=== PATIENT | male | born 1975 | race Caucasian/White ===

== ENCOUNTER 2017-02-10 14:28 | Inpatient (IN) | payer MEDICAID ==
[~2017-02-10] VITALS: Ht 165.1 cm; Wt 76.1 kg
[~2017-02-10 14:28] MED LIST: ALBU0.084 IN; CARI-277 PO; FENT50DI11 TD; Ipratropium Bromide NEB; LEV500PM IV; PANTPAK IV; PERCOT GT; [UNRECOGNIZED DRUG - CODE] IV
[2017-02-10] MEDS ORDERED: SODIUM CHLORIDE 0.9% 1,000 ML IV ONE (15:28)
[2017-02-10] MEDS ORDERED: MEPERIDINE HCL (50 MG/ML) 1 ML VIAL IV ONE ×2 (15:30→18:30)
[2017-02-10] MEDS ORDERED: PROMETHAZINE HCL 25 MG/ML 1ML IV ONE (15:30)
[2017-02-10 16:30] LABS: Basophils # (auto) 0 uL; Basophils % (auto) 0.2 % (0.0-2.0); CONDITION Y; DEFINITIVE SEE PRINTOUT; Eosinophils # (auto) 0.1 uL; Eosinophils % (auto) 1.8 % (0.0-7.0); Hematocrit 35.4 % (41.0-53.0); Hemoglobin 11.8 g/dL (13.5-17.5); Lymphocytes # (auto) 0.9 uL; Lymphocytes % (auto) 16.1 % (10.0-50.0); Mean Corpuscular Hemoglobin 25.9 pg (28.0-32.0); Mean Corpuscular Hgb Conc. 33.2 g/dL (32.0-36.0); Mean Corpuscular Volume 78.1 fL (80.0-100.0); Monocytes # (auto) 0.3 uL; Monocytes % (auto) 5.8 % (0.0-12.0); Neutrophils # (auto) 4.1 uL; Neutrophils % (auto) 76.1 % (37.0-80.0); Platelet Count (auto) 131 10^3/uL (140-450); Red Cell Distribution Width 18.3 % (11.6-16.0); White Blood Cell 5.4 10^3/uL (4.4-10.8)
[2017-02-10 16:44] LABS: Albumin 3.7 g/dL (3.4-5.0); Anion Gap 9 (5-15); Aspartate Aminotransferase 20 U/L (15-37); BUN/Creatinine Ratio 86.7; Blood Urea Nitrogen 13 mg/dL (7-18); Calcium 8.7 mg/dL (8.5-10.1); Carbon Dioxide 26 mmol/L (21-32); Chloride 108 mmol/L (98-107); GFR African American 937 mL/min; GFR Non-African American 774 mL/min; Glucose 78 mg/dL (74-106); Magnesium 2.3 mg/dL (1.6-2.6); Potassium 4.2 mmol/L (3.5-5.1); Sodium 143 mmol/L (136-145)
[2017-02-10 16:46] LABS: Alkaline Phosphatase 143 U/L (45-117); Bilirubin, Total 0.5 mg/dL (0.2-1.0); Total Protein 8.2 g/dL (6.4-8.2)
[2017-02-10] MEDS ORDERED: LORazepam 0.5 MG TAB PO PRN (17:30)
[2017-02-10] MEDS ORDERED: TEMAZEPAM 15 MG CAP PO PRN (17:30)
[2017-02-10] MEDS ORDERED: MORPHINE SULFATE 4 MG/ML SYRG IV PRN (17:30)
[2017-02-10] MEDS ORDERED: LACTULOSE 20Gm/30ML SOLN PO PRN (17:30)
[2017-02-10] MEDS ORDERED: ACETAMINOPHEN 500 MG TAB PO PRN (17:30)
[2017-02-10] MEDS ORDERED: NITROGLYCERIN 0.4 MG SL TAB SL PRN (17:30)
[2017-02-10 18:37] VITALS: BP 113/75
[2017-02-10 18:59] LABS: Urine Bilirubin Negative (Negative); Urine Blood Negative /uL (Negative); Urine Color Yellow (Yellow); Urine Glucose Normal (Normal); Urine Ketone Negative (Negative); Urine Nitrite Negative (Negative); Urine RBC 1 /hpf (0 - 3); Urine Squamous Epithelial Cell FEW /hpf (<5); Urine Urobilinogen Normal (Negative)
[2017-02-10] MEDS: SODIUM CHLORIDE 0.9% 1,000 ML IV SCH (19:10)
[2017-02-10 20:29] VITALS: BP 123/83
[2017-02-10] MEDS: ONDANSETRON HCL 4 MG/2 ML VIAL IV PRN (21:28)
[2017-02-10 23:49] VITALS: BP 123/83
[2017-02-11] VITALS (9 sets, daily range): BP systolic 102–138; BP diastolic 55–88
[2017-02-11] MEDS: MORPHINE SULFATE 4 MG/ML SYRG IV PRN ×5 (00:53→15:13)
[2017-02-11] MEDS: SODIUM CHLORIDE 0.9% 1,000 ML IV SCH ×2 (09:40→21:17)
[2017-02-11] MEDS ORDERED: LEVOFLOXACIN 500MG 100 ML IV SCH ×2 (10:00)
[2017-02-11] MEDS: ONDANSETRON HCL 4 MG/2 ML VIAL IV PRN ×2 (10:24→21:03)
[2017-02-11] MEDS ORDERED: TPN PER PHARMACY 0 ML IV SCH (17:15)
[2017-02-11] MEDS ORDERED: VANCOMYCIN PER PHARMACY 0 MG IV SCH (17:30)
[2017-02-11 18:47] LABS: Albumin 3.5 g/dL (3.4-5.0); Anion Gap 11 (5-15); BUN/Creatinine Ratio 66.7; Blood Urea Nitrogen 10 mg/dL (7-18); Calcium 8.4 mg/dL (8.5-10.1); Carbon Dioxide 19 mmol/L (21-32); Chloride 114 mmol/L (98-107); GFR African American 937 mL/min; GFR Non-African American 774 mL/min; Glucose 75 mg/dL (74-106); Sodium 144 mmol/L (136-145)
[2017-02-11 18:49] LABS: Alkaline Phosphatase 138 U/L (45-117); Bilirubin, Total 0.9 mg/dL (0.2-1.0); Total Protein 7.9 g/dL (6.4-8.2)
[2017-02-11 18:51] LABS: Phosphorus 2.5 mg/dL (2.5-4.90)
[2017-02-11 19:20] LABS: Potassium 4.2 mmol/L (3.5-5.1)
[2017-02-11 19:36] LABS: Aspartate Aminotransferase 26 U/L (15-37)
[2017-02-11] MEDS: VANCOMYCIN 1GM/250ML D5W 250 ML IV SCH (20:53)
[2017-02-11] MEDS ORDERED: CLINIMIX PER PHARMACY IV NR ×7 (21:00)
[2017-02-11] MEDS: HYDROmorphone HCL 2 MG/ML VL IV PRN (21:03)
[2017-02-11] MEDS: InsuLIN REG 1unit/0.01ml Soln (100units/ml) SC SCH (21:16)
[2017-02-11] MEDS: ACCU-CHEK COMFORT CURVE STRIP VI SCH (21:18)
[2017-02-11] MEDS: PANTOPRAZOLE SODIUM 40 MG/10 ML VIAL IV SCH (21:55)
[2017-02-12] VITALS (14 sets, daily range): BP systolic 120–153; BP diastolic 76–93
[2017-02-12] MEDS ORDERED: DEXTROSE (50%) 50ML SYRG IV SCH
[2017-02-12] MEDS: HYDROmorphone HCL 2 MG/ML VL IV PRN ×6 (01:20→21:54)
[2017-02-12 05:46] LABS: Albumin 3.4 g/dL (3.4-5.0); Alkaline Phosphatase 126 U/L (45-117); Anion Gap 14 (5-15); Bilirubin, Total 0.9 mg/dL (0.2-1.0); Blood Urea Nitrogen 9 mg/dL (7-18); Calcium 8.5 mg/dL (8.5-10.1); Carbon Dioxide 16 mmol/L (21-32); Chloride 110 mmol/L (98-107); Glucose 63 mg/dL (74-106); Magnesium 2.2 mg/dL (1.6-2.6); Phosphorus 2.6 mg/dL (2.5-4.90); Sodium 140 mmol/L (136-145); Total Protein 7.1 g/dL (6.4-8.2); Triglycerides 75 mg/dL (< 150)
[2017-02-12 05:49] LABS: Aspartate Aminotransferase 35 U/L (15-37); Potassium 4.1 mmol/L (3.5-5.1)
[2017-02-12] MEDS: InsuLIN REG 1unit/0.01ml Soln (100units/ml) SC SCH ×3 (06:00→18:00)
[2017-02-12] MEDS: ACCU-CHEK COMFORT CURVE STRIP VI SCH ×3 (06:01→18:01)
[2017-02-12 06:03] LABS: GFR African American 937 mL/min; GFR Non-African American 774 mL/min
[2017-02-12 08:57] LABS: Basophils # (auto) 0 uL; Basophils % (auto) 0.5 % (0.0-2.0); CONDITION Y; DEFINITIVE SEE PRINTOUT; Eosinophils # (auto) 0.1 uL; Eosinophils % (auto) 1.9 % (0.0-7.0); Hematocrit 33.7 % (41.0-53.0); Lymphocytes # (auto) 1.5 uL; Lymphocytes % (auto) 25.5 % (10.0-50.0); Mean Corpuscular Hemoglobin 25.7 pg (28.0-32.0); Mean Corpuscular Hgb Conc. 32.6 g/dL (32.0-36.0); Mean Corpuscular Volume 78.8 fL (80.0-100.0); Mean Platelet Volume 10.6 fL (7.4-10.4); Monocytes # (auto) 0.5 uL; Monocytes % (auto) 9.3 % (0.0-12.0); Neutrophils # (auto) 3.6 uL; Neutrophils % (auto) 62.8 % (37.0-80.0); Platelet Count (auto) 132 10^3/uL (140-450); Red Cell Distribution Width 18.8 % (11.6-16.0); White Blood Cell 5.8 10^3/uL (4.4-10.8)
[2017-02-12] MEDS: SODIUM CHLORIDE 0.9% 1,000 ML IV SCH ×2 (09:21→16:31)
[2017-02-12] MEDS: PANTOPRAZOLE SODIUM 40 MG/10 ML VIAL IV SCH ×2 (10:19→21:30)
[2017-02-12] MEDS: VANCOMYCIN 1GM/250ML D5W 250 ML IV SCH ×2 (10:19→21:00)
[2017-02-12] MEDS ORDERED: diphenhdrAMINE HCL 25 MG CAP PO PRN (16:15)
[2017-02-12] MEDS: LEVOFLOXACIN 500MG 100 ML IV SCH (16:30)
[2017-02-12] MEDS: diphenhdrAMINE HCL 12.5 MG/5 ML UD GT PRN (18:45)
[2017-02-12] MEDS ORDERED: TPN PER PHARMACY IV NR ×9 (20:00)
[2017-02-13] VITALS (14 sets, daily range): BP systolic 122–143; BP diastolic 62–96
[2017-02-13] MEDS: InsuLIN REG 1unit/0.01ml Soln (100units/ml) SC SCH ×4 (00:58→18:00)
[2017-02-13] MEDS: SODIUM CHLORIDE 0.9% 1,000 ML IV SCH ×3 (01:36→21:57)
[2017-02-13] MEDS: HYDROmorphone HCL 2 MG/ML VL IV PRN ×5 (01:37→21:10)
[2017-02-13] MEDS: ACCU-CHEK COMFORT CURVE STRIP VI SCH ×4 (06:38→18:15)
[2017-02-13] MEDS: VANCOMYCIN 1GM/250ML D5W 250 ML IV SCH ×2 (08:39→20:46)
[2017-02-13] MEDS: PANTOPRAZOLE SODIUM 40 MG/10 ML VIAL IV SCH ×2 (10:32→21:57)
[2017-02-13] MEDS: LEVOFLOXACIN 500MG 100 ML IV SCH (10:32)
[2017-02-13 14:27] LABS: Basophils # (auto) 0 uL; Basophils % (auto) 0.4 % (0.0-2.0); CONDITION Y; DEFINITIVE SEE PRINTOUT; Eosinophils # (auto) 0.2 uL; Eosinophils % (auto) 3.2 % (0.0-7.0); Hematocrit 35.2 % (41.0-53.0); Hemoglobin 11.4 g/dL (13.5-17.5); Lymphocytes # (auto) 0.8 uL; Lymphocytes % (auto) 15.8 % (10.0-50.0); Mean Corpuscular Hemoglobin 25.8 pg (28.0-32.0); Mean Corpuscular Hgb Conc. 32.5 g/dL (32.0-36.0); Mean Corpuscular Volume 79.6 fL (80.0-100.0); Mean Platelet Volume 9.6 fL (7.4-10.4); Monocytes # (auto) 0.5 uL; Monocytes % (auto) 10.4 % (0.0-12.0); Neutrophils # (auto) 3.4 uL; Neutrophils % (auto) 70.2 % (37.0-80.0); Platelet Count (auto) 119 10^3/uL (140-450); Red Cell Distribution Width 18.5 % (11.6-16.0); White Blood Cell 4.9 10^3/uL (4.4-10.8)
[2017-02-13 15:02] LABS: Albumin 3.3 g/dL (3.4-5.0); Anion Gap 11 (5-15); Aspartate Aminotransferase 20 U/L (15-37); Blood Urea Nitrogen 9 mg/dL (7-18); Calcium 8.2 mg/dL (8.5-10.1); Carbon Dioxide 20 mmol/L (21-32); Chloride 112 mmol/L (98-107); GFR African American 937 mL/min; GFR Non-African American 774 mL/min; Glucose 115 mg/dL (74-106); Magnesium 1.7 mg/dL (1.6-2.6); Potassium 3.5 mmol/L (3.5-5.1); Sodium 143 mmol/L (136-145)
[2017-02-13 15:04] LABS: Alkaline Phosphatase 124 U/L (45-117); Bilirubin, Total 0.6 mg/dL (0.2-1.0); Total Protein 7.6 g/dL (6.4-8.2)
[2017-02-13 15:08] LABS: Phosphorus 2.2 mg/dL (2.5-4.90)
[2017-02-13] MEDS ORDERED: POTASSIUM PHOSP 22MEQ(15MMOLE) in NS 100 ML IV ONE (16:00)
[2017-02-13] MEDS: diphenhdrAMINE HCL 12.5 MG/5 ML UD GT PRN (17:19)
[2017-02-13] MEDS ORDERED: CLINIMIX PER PHARMACY IV NR ×7 (20:00)
[2017-02-13] MEDS ORDERED: HYDROmorphone HCL 2 MG/ML VL IV PRN (21:00)
[2017-02-14] MEDS: InsuLIN REG 1unit/0.01ml Soln (100units/ml) SC SCH ×4 (00:30→18:00)
[2017-02-14] MEDS: ACCU-CHEK COMFORT CURVE STRIP VI SCH ×4 (00:42→18:12)
[2017-02-14] MEDS: HYDROmorphone HCL 2 MG/ML VL IV PRN ×6 (00:43→23:27)
[2017-02-14 05:00] VITALS: BP 148/92
[2017-02-14] MEDS: SODIUM CHLORIDE 0.9% 1,000 ML IV SCH ×2 (07:45→18:14)
[2017-02-14 08:30] VITALS: BP 129/83
[2017-02-14] MEDS: PANTOPRAZOLE SODIUM 40 MG/10 ML VIAL IV SCH ×2 (10:18→22:29)
[2017-02-14] MEDS: VANCOMYCIN 1GM/250ML D5W 250 ML IV SCH ×2 (10:18→22:43)
[2017-02-14] MEDS: fentaNYL 50MCG/HR 50 MCG/HR PAT TD SCH (10:19)
[2017-02-14] MEDS: HYDROcodone-ACET 5/325MG TAB PO PRN ×2 (11:37→15:09)
[2017-02-14 13:00] VITALS: BP 111/77
[2017-02-14 13:46] LABS: Basophils # (auto) 0 uL; Basophils % (auto) 0.3 % (0.0-2.0); CONDITION Y; DEFINITIVE SEE PRINTOUT; Eosinophils # (auto) 0.2 uL; Eosinophils % (auto) 3.5 % (0.0-7.0); Hematocrit 38.9 % (41.0-53.0); Hemoglobin 12.6 g/dL (13.5-17.5); Lymphocytes # (auto) 1.3 uL; Lymphocytes % (auto) 20.8 % (10.0-50.0); Mean Corpuscular Hemoglobin 25.7 pg (28.0-32.0); Mean Corpuscular Hgb Conc. 32.3 g/dL (32.0-36.0); Mean Corpuscular Volume 79.6 fL (80.0-100.0); Mean Platelet Volume 9.9 fL (7.4-10.4); Monocytes # (auto) 0.7 uL; Monocytes % (auto) 11.9 % (0.0-12.0); Neutrophils # (auto) 3.9 uL; Neutrophils % (auto) 63.5 % (37.0-80.0); Platelet Count (auto) 151 10^3/uL (140-450); Red Cell Distribution Width 18.7 % (11.6-16.0); White Blood Cell 6.2 10^3/uL (4.4-10.8)
[2017-02-14 14:09] LABS: Albumin 3.7 g/dL (3.4-5.0); Alkaline Phosphatase 125 U/L (45-117); Anion Gap 8 (5-15); Bilirubin, Total 0.8 mg/dL (0.2-1.0); Blood Urea Nitrogen 10 mg/dL (7-18); Carbon Dioxide 24 mmol/L (21-32); Chloride 107 mmol/L (98-107); Glucose 86 mg/dL (74-106); Magnesium 2.3 mg/dL (1.6-2.6); Phosphorus 3.1 mg/dL (2.5-4.90); Sodium 139 mmol/L (136-145); Total Protein 7.7 g/dL (6.4-8.2)
[2017-02-14 14:14] LABS: Potassium 4.4 mmol/L (3.5-5.1)
[2017-02-14 14:15] LABS: Aspartate Aminotransferase 27 U/L (15-37); BUN/Creatinine Ratio 66.7; GFR African American 937 mL/min; GFR Non-African American 774 mL/min
[2017-02-14 17:47] VITALS: BP 116/78
[2017-02-14] MEDS ORDERED: CLINIMIX PER PHARMACY IV NR ×7 (20:00)
[2017-02-14] MEDS ORDERED: LORazepam 0.5 MG TAB GT PRN (20:15)
[2017-02-14] MEDS ORDERED: HYDROcodone-ACET 5/325MG TAB GT PRN (20:15)
[2017-02-14] MEDS: MUPIROCIN 2% OINT 22GM EACHNOSTRI SCH (22:28)
[2017-02-14] MEDS: MEROPENEM 1GM IVPB 100 ML IV SCH (22:28)
[2017-02-15] VITALS (7 sets, daily range): BP systolic 121–135; BP diastolic 69–76
[2017-02-15] MEDS: HYDROmorphone HCL 2 MG/ML VL IV PRN ×6 (02:50→20:30)
[2017-02-15 05:21] LABS: Basophils # (auto) 0 uL; Basophils % (auto) 0.6 % (0.0-2.0); CONDITION Y; DEFINITIVE SEE PRINTOUT; Eosinophils # (auto) 0.3 uL; Eosinophils % (auto) 5.4 % (0.0-7.0); Hematocrit 35.5 % (41.0-53.0); Hemoglobin 11.6 g/dL (13.5-17.5); Lymphocytes # (auto) 1.7 uL; Lymphocytes % (auto) 31.9 % (10.0-50.0); Mean Corpuscular Hemoglobin 25.9 pg (28.0-32.0); Mean Corpuscular Hgb Conc. 32.7 g/dL (32.0-36.0); Mean Corpuscular Volume 79.2 fL (80.0-100.0); Mean Platelet Volume 9.6 fL (7.4-10.4); Monocytes # (auto) 0.6 uL; Monocytes % (auto) 10.5 % (0.0-12.0); Neutrophils # (auto) 2.8 uL; Neutrophils % (auto) 51.6 % (37.0-80.0); Platelet Count (auto) 155 10^3/uL (140-450); White Blood Cell 5.5 10^3/uL (4.4-10.8)
[2017-02-15 05:41] LABS: Albumin 3.4 g/dL (3.4-5.0); Alkaline Phosphatase 120 U/L (45-117); Anion Gap 7 (5-15); Aspartate Aminotransferase 17 U/L (15-37); Bilirubin, Total 0.8 mg/dL (0.2-1.0); Blood Urea Nitrogen 9 mg/dL (7-18); Calcium 8.6 mg/dL (8.5-10.1); Carbon Dioxide 23 mmol/L (21-32); Chloride 109 mmol/L (98-107); Glucose 85 mg/dL (74-106); Magnesium 2.3 mg/dL (1.6-2.6); Phosphorus 2.7 mg/dL (2.5-4.90); Potassium 4.1 mmol/L (3.5-5.1); Sodium 139 mmol/L (136-145); Total Protein 7.2 g/dL (6.4-8.2)
[2017-02-15] MEDS: InsuLIN REG 1unit/0.01ml Soln (100units/ml) SC SCH ×4 (06:00→18:00)
[2017-02-15] MEDS: ACCU-CHEK COMFORT CURVE STRIP VI SCH ×4 (06:02→18:17)
[2017-02-15] MEDS: MEROPENEM 1GM IVPB 100 ML IV SCH ×3 (06:04→21:38)
[2017-02-15] MEDS: SODIUM CHLORIDE 0.9% 1,000 ML IV SCH ×3 (06:04→20:26)
[2017-02-15 06:17] LABS: GFR African American 937 mL/min; GFR Non-African American 774 mL/min
[2017-02-15] MEDS: MUPIROCIN 2% OINT 22GM EACHNOSTRI SCH ×2 (09:10→21:38)
[2017-02-15] MEDS: VANCOMYCIN 1GM/250ML D5W 250 ML IV SCH ×2 (09:10→21:37)
[2017-02-15] MEDS: PANTOPRAZOLE SODIUM 40 MG/10 ML VIAL IV SCH ×2 (09:10→21:38)
[2017-02-15] MEDS: ONDANSETRON HCL 4 MG/2 ML VIAL IV PRN (10:28)
[2017-02-15] MEDS ORDERED: TPN PER PHARMACY IV NR ×9 (20:00)
[2017-02-16] MEDS: HYDROmorphone HCL 2 MG/ML VL IV PRN ×7 (00:31→23:32)
[2017-02-16 05:00] VITALS: BP 162/95
[2017-02-16] MEDS: MEROPENEM 1GM IVPB 100 ML IV SCH ×3 (05:19→23:31)
[2017-02-16] MEDS: ACCU-CHEK COMFORT CURVE STRIP VI SCH ×5 (05:19→23:39)
[2017-02-16] MEDS: InsuLIN REG 1unit/0.01ml Soln (100units/ml) SC SCH ×5 (06:00→23:39)
[2017-02-16 06:10] LABS: Basophils # (auto) 0 uL; Basophils % (auto) 0.5 % (0.0-2.0); CONDITION Y; DEFINITIVE SEE PRINTOUT; Eosinophils # (auto) 0.3 uL; Eosinophils % (auto) 6.1 % (0.0-7.0); Hematocrit 38.9 % (41.0-53.0); Hemoglobin 13.1 g/dL (13.5-17.5); Lymphocytes # (auto) 1.3 uL; Lymphocytes % (auto) 30.3 % (10.0-50.0); Mean Corpuscular Hemoglobin 26.4 pg (28.0-32.0); Mean Corpuscular Hgb Conc. 33.6 g/dL (32.0-36.0); Mean Corpuscular Volume 78.5 fL (80.0-100.0); Mean Platelet Volume 12.3 fL (7.4-10.4); Monocytes # (auto) 0.4 uL; Monocytes % (auto) 10.1 % (0.0-12.0); Neutrophils # (auto) 2.2 uL; Platelet Count (auto) 134 10^3/uL (140-450); Red Cell Distribution Width 19.8 % (11.6-16.0); SUSPECT SEE PRINTOUT; White Blood Cell 4.2 10^3/uL (4.4-10.8)
[2017-02-16 06:20] VITALS: BP 162/95
[2017-02-16 06:28] LABS: Albumin 3.4 g/dL (3.4-5.0); Alkaline Phosphatase 120 U/L (45-117); Anion Gap 11 (5-15); Aspartate Aminotransferase 36 U/L (15-37); BUN/Creatinine Ratio 66.7; Bilirubin, Total 0.7 mg/dL (0.2-1.0); Blood Urea Nitrogen 10 mg/dL (7-18); Calcium 8.7 mg/dL (8.5-10.1); Carbon Dioxide 23 mmol/L (21-32); Chloride 105 mmol/L (98-107); GFR African American 937 mL/min; GFR Non-African American 774 mL/min; Glucose 106 mg/dL (74-106); Magnesium 2.1 mg/dL (1.6-2.6); Potassium 4.4 mmol/L (3.5-5.1); Sodium 139 mmol/L (136-145); Total Protein 7.6 g/dL (6.4-8.2)
[2017-02-16] MEDS: PANTOPRAZOLE SODIUM 40 MG/10 ML VIAL IV SCH ×2 (08:50→22:02)
[2017-02-16] MEDS: MUPIROCIN 2% OINT 22GM EACHNOSTRI SCH ×2 (08:51→22:03)
[2017-02-16 09:00] VITALS: BP 119/67
[2017-02-16] MEDS: VANCOMYCIN 1GM/250ML D5W 250 ML IV SCH ×2 (09:02→22:03)
[2017-02-16] MEDS: SODIUM CHLORIDE 0.9% 1,000 ML IV SCH (10:18)
[2017-02-16 16:23] VITALS: BP 121/63
[2017-02-16 20:00] VITALS: BP 115/73
[2017-02-16] MEDS ORDERED: TPN PER PHARMACY IV NR ×9 (20:00)
[2017-02-16] MEDS: ONDANSETRON HCL 4 MG/2 ML VIAL IV PRN (20:31)
[2017-02-16 22:00] VITALS: BP 115/77
[2017-02-17] VITALS (9 sets, daily range): BP systolic 101–124; BP diastolic 65–84
[2017-02-17] MEDS: SODIUM CHLORIDE 0.9% 1,000 ML IV SCH ×2 (00:36→20:47)
[2017-02-17] MEDS: HYDROmorphone HCL 2 MG/ML VL IV PRN ×7 (02:24→21:17)
[2017-02-17] MEDS: MEROPENEM 1GM IVPB 100 ML IV SCH ×3 (05:32→23:55)
[2017-02-17] MEDS: InsuLIN REG 1unit/0.01ml Soln (100units/ml) SC SCH ×4 (05:56→23:41)
[2017-02-17] MEDS: ACCU-CHEK COMFORT CURVE STRIP VI SCH ×4 (05:56→23:41)
[2017-02-17 08:11] LABS: Albumin 3.5 g/dL (3.4-5.0); Alkaline Phosphatase 117 U/L (45-117); Anion Gap 11 (5-15); Aspartate Aminotransferase 21 U/L (15-37); Bilirubin, Total 0.9 mg/dL (0.2-1.0); Blood Urea Nitrogen 12 mg/dL (7-18); Calcium 9.1 mg/dL (8.5-10.1); Carbon Dioxide 23 mmol/L (21-32); Chloride 105 mmol/L (98-107); GFR African American 937 mL/min; GFR Non-African American 774 mL/min; Glucose 77 mg/dL (74-106); Magnesium 2.2 mg/dL (1.6-2.6); Phosphorus 2.4 mg/dL (2.5-4.90); Potassium 4.2 mmol/L (3.5-5.1); Sodium 139 mmol/L (136-145); Total Protein 7.7 g/dL (6.4-8.2)
[2017-02-17] MEDS ORDERED: SODIUM PHOSP 20MEQ(15MMOL) IN NS 100 ML IV ONE (08:45)
[2017-02-17] MEDS: VANCOMYCIN 1GM/250ML D5W 250 ML IV SCH ×2 (10:26→22:09)
[2017-02-17] MEDS: PANTOPRAZOLE SODIUM 40 MG/10 ML VIAL IV SCH ×2 (10:27→21:16)
[2017-02-17] MEDS: MUPIROCIN 2% OINT 22GM EACHNOSTRI SCH ×2 (10:28→22:09)
[2017-02-17] MEDS: fentaNYL 50MCG/HR 50 MCG/HR PAT TD SCH (10:38)
[2017-02-17 13:28] LABS: Basophils # (auto) 0 uL; Basophils % (auto) 0.4 % (0.0-2.0); CONDITION Y; DEFINITIVE SEE PRINTOUT; Eosinophils # (auto) 0.3 uL; Eosinophils % (auto) 5.3 % (0.0-7.0); Hematocrit 36.5 % (41.0-53.0); Hemoglobin 12.1 g/dL (13.5-17.5); Lymphocytes # (auto) 1.5 uL; Lymphocytes % (auto) 29.4 % (10.0-50.0); Mean Corpuscular Hemoglobin 26.4 pg (28.0-32.0); Mean Corpuscular Hgb Conc. 33.2 g/dL (32.0-36.0); Mean Corpuscular Volume 79.4 fL (80.0-100.0); Mean Platelet Volume 9.6 fL (7.4-10.4); Monocytes # (auto) 0.7 uL; Monocytes % (auto) 13.2 % (0.0-12.0); Neutrophils # (auto) 2.7 uL; Neutrophils % (auto) 51.7 % (37.0-80.0); Platelet Count (auto) 169 10^3/uL (140-450); Red Cell Distribution Width 19.4 % (11.6-16.0); White Blood Cell 5.3 10^3/uL (4.4-10.8)
[2017-02-17 15:14] LABS: Anisocytosis Slight
[2017-02-17 15:16] LABS: Platelet Estimate Adequate
[2017-02-17 15:17] LABS: Hypochromia Slight
[2017-02-17] MEDS ORDERED: TPN PER PHARMACY IV NR ×9 (20:00)
[2017-02-18] MEDS: HYDROmorphone HCL 2 MG/ML VL IV PRN ×8 (00:30→22:24)
[2017-02-18 04:45] VITALS: BP 116/69
[2017-02-18] MEDS: SODIUM CHLORIDE 0.9% 1,000 ML IV SCH (05:12)
[2017-02-18] MEDS: InsuLIN REG 1unit/0.01ml Soln (100units/ml) SC SCH ×3 (06:00→17:49)
[2017-02-18] MEDS: ACCU-CHEK COMFORT CURVE STRIP VI SCH ×3 (06:41→17:49)
[2017-02-18] MEDS: MEROPENEM 1GM IVPB 100 ML IV SCH ×2 (07:02→13:59)
[2017-02-18] MEDS: PANTOPRAZOLE SODIUM 40 MG/10 ML VIAL IV SCH ×2 (09:51→22:24)
[2017-02-18] MEDS: VANCOMYCIN 1GM/250ML D5W 250 ML IV SCH (09:53)
[2017-02-18 10:33] LABS: Albumin 3.3 g/dL (3.4-5.0); Alkaline Phosphatase 108 U/L (45-117); Anion Gap 10 (5-15); Aspartate Aminotransferase 14 U/L (15-37); Bilirubin, Total 0.8 mg/dL (0.2-1.0); Blood Urea Nitrogen 12 mg/dL (7-18); Calcium 8.8 mg/dL (8.5-10.1); Carbon Dioxide 22 mmol/L (21-32); Chloride 107 mmol/L (98-107); Glucose 80 mg/dL (74-106); Magnesium 2.2 mg/dL (1.6-2.6); Phosphorus 3.2 mg/dL (2.5-4.90); Sodium 139 mmol/L (136-145); Total Protein 7.2 g/dL (6.4-8.2)
[2017-02-18 10:37] LABS: Basophils # (auto) 0 uL; Basophils % (auto) 0.8 % (0.0-2.0); CONDITION Y; DEFINITIVE SEE PRINTOUT; Eosinophils # (auto) 0.3 uL; Eosinophils % (auto) 5.4 % (0.0-7.0); Hematocrit 34.6 % (41.0-53.0); Hemoglobin 11.5 g/dL (13.5-17.5); Lymphocytes # (auto) 1.6 uL; Lymphocytes % (auto) 29.9 % (10.0-50.0); Mean Corpuscular Hemoglobin 26.1 pg (28.0-32.0); Mean Corpuscular Hgb Conc. 33.3 g/dL (32.0-36.0); Mean Corpuscular Volume 78.5 fL (80.0-100.0); Mean Platelet Volume 10.6 fL (7.4-10.4); Monocytes # (auto) 0.6 uL; Monocytes % (auto) 11.3 % (0.0-12.0); Neutrophils # (auto) 2.9 uL; Neutrophils % (auto) 52.6 % (37.0-80.0); Platelet Count (auto) 170 10^3/uL (140-450); Red Cell Distribution Width 19.2 % (11.6-16.0); White Blood Cell 5.5 10^3/uL (4.4-10.8)
[2017-02-18 10:50] LABS: GFR African American 937 mL/min; GFR Non-African American 774 mL/min
[2017-02-18] MEDS: MUPIROCIN 2% OINT 22GM EACHNOSTRI SCH (11:48)
[2017-02-18] MEDS ORDERED: ERTAPENEM SOD INJ 1 GM in SODIUM CHL 0.9% 50 ML IV SCH (16:45)
[2017-02-18] MEDS ORDERED: ERTAPENEM SOD INJ 1 GM in SODIUM CHL 0.9% 50 ML IV ONE (16:45)
[2017-02-18] MEDS ORDERED: AMOXICILLIN/CLAVUL 875 MG TAB PO ONE (16:45)
[2017-02-18 17:00] VITALS: BP 103/54
[2017-02-18] MEDS ORDERED: TPN PER PHARMACY IV NR ×9 (20:00)
[2017-02-18 22:00] VITALS: BP 110/65
== END 2017-02-18 23:20 | disposition home or self-care (01) | DRG 130 ==
LOC: ER 14:28 → EDBD 14:28 → TELE 14:29 → DOU IN ICU 02-11 05:03 → TELE-EAST 02-13 18:56 → EAST 02-18 04:50 → TELE-EAST 02-18 05:16
PROVIDERS: ADMIT Internal Medicine; ATTEND Family Medicine
PROC: 5A1955Z Respiratory Ventilation, Greater than 96 Consecutive Hours (ICD-10-PCS; principal; 2017-02-10)
PROC: 0BH17EZ Insertion of Endotracheal Airway into Trachea, Via Natural or Artificial Opening (ICD-10-PCS; 2017-02-10)
DX: J44.0 Chronic obstructive pulmonary disease with (acute) lower respiratory infection (principal); J95.851 Ventilator associated pneumonia; N17.9 Acute kidney failure, unspecified; J96.20 Acute and chronic respiratory failure, unspecified whether with hypoxia or hypercapnia; D69.6 Thrombocytopenia, unspecified; E87.2 Acidosis; R65.10 Systemic inflammatory response syndrome (SIRS) of non-infectious origin without acute organ dysfunction; G71.0 Muscular dystrophy; F11.20 Opioid dependence, uncomplicated; Z99.11 Dependence on respirator [ventilator] status; Z93.0 Tracheostomy status; D63.8 Anemia in other chronic diseases classified elsewhere; G89.4 Chronic pain syndrome; J44.9 Chronic obstructive pulmonary disease, unspecified; K21.9 Gastro-esophageal reflux disease without esophagitis; F32.9 Major depressive disorder, single episode, unspecified; Y84.8 Other medical procedures as the cause of abnormal reaction of the patient, or of later complication, without mention of misadventure at the time of the procedure; Z74.01 Bed confinement status; Z88.2 Allergy status to sulfonamides; Z93.1 Gastrostomy status; Z93.3 Colostomy status; Z88.8 Allergy status to other drugs, medicaments and biological substances
CPT/HCPCS: 36415; 71010; 80053; 80202; 81001; 82040; 82962; 83605; 83735; 84100; 84443; 84478; 85025; 87040; 87070; 87077; 87081; 87186; 87205; 93005; 93306; 94002; 94003; 96361; 96374; 96375; C9113; J1335; J1642; J1956; J2185; J2405

== ENCOUNTER 2017-05-23 20:39 | Inpatient (IN) | payer MEDICAID ==
[~2017-05-23] VITALS: Ht 160 cm; Wt 83.9 kg
[~2017-05-23 20:39] MED LIST changes: -CARI-277 PO; -LEV500PM IV; -[UNRECOGNIZED DRUG - CODE] IV
[2017-05-23 21:25] LABS: Basophils # (auto) 0 uL; Eosinophils # (auto) 0.1 uL; Hemoglobin 10.6 g/dL (13.5-17.5); Lymphocytes # (auto) 1.1 uL; Mean Platelet Volume 8.2 fL (6.9-10.8); Monocytes # (auto) 0.4 uL; Nucleated Red Blood Cells % 0.2 %; Red Cell Distribution Width 17.9 % (11.8-14.3)
[2017-05-23 21:27] LABS: Basophils % (auto) 0.5 % (0.0-2.0); Eosinophils % (auto) 2.3 % (0.0-7.0); Hematocrit 32.8 % (41.0-53.0); Lymphocytes % (auto) 21.8 % (10.0-50.0); Mean Corpuscular Hemoglobin 25.5 pg (28.0-32.0); Mean Corpuscular Hgb Conc. 32.2 g/dL (32.0-36.0); Neutrophils # (auto) 3.3 uL; Neutrophils % (auto) 67.4 % (37.0-80.0); Platelet Count (auto) 162 10^3/uL (140-450); White Blood Cell 4.9 10^3/uL (4.4-10.8)
[2017-05-23 21:44] LABS: Albumin 3.4 g/dL (3.4-5.0); Anion Gap 10 (5-15); Aspartate Aminotransferase 11 U/L (15-37); Blood Urea Nitrogen 9 mg/dL (7-18); Calcium 8.6 mg/dL (8.5-10.1); Carbon Dioxide 23 mmol/L (21-32); Chloride 112 mmol/L (98-107); Glucose 80 mg/dL (74-106); Sodium 145 mmol/L (136-145)
[2017-05-23 21:46] LABS: Alkaline Phosphatase 105 U/L (45-117); Bilirubin, Total 0.5 mg/dL (0.2-1.0); Total Protein 7.9 g/dL (6.4-8.2)
[2017-05-23 22:00] LABS: GFR African American 937 mL/min; GFR Non-African American 774 mL/min
[2017-05-23 22:25] LABS: Urine Bilirubin Negative (Negative); Urine Blood 1+ /uL (Negative); Urine Color Yellow (Yellow); Urine Glucose Normal (Normal); Urine Ketone Negative (Negative); Urine Mucus FEW (None Seen); Urine Nitrite Negative (Negative); Urine RBC 14 /hpf (0 - 3); Urine Urobilinogen Normal (Negative)
[2017-05-23] MEDS ORDERED: SODIUM CHLORIDE 0.9% 1,000 ML IV ONE (22:30)
[2017-05-23] MEDS ORDERED: ONDANSETRON HCL 4 MG/2 ML VIAL IV ONE (22:45)
[2017-05-23] MEDS ORDERED: HYDROmorphone HCL 2 MG/ML VL IV ONE (22:45)
[2017-05-23] MEDS ORDERED: cefTRIAXone 1GM/50ML D5W 50 ML IV ONE (23:15)
[2017-05-23] MEDS ORDERED: VANCOMYCIN 1GM/250ML 250 ML IV ONE (23:15)
[2017-05-24] VITALS (13 sets, daily range): BP systolic 120–137; BP diastolic 73–95
[2017-05-24] MEDS ORDERED: ONDANSETRON HCL 4 MG/2 ML VIAL IV PRN (00:30)
[2017-05-24] MEDS ORDERED: ACETAMINOPHEN 500 MG TAB PO PRN (00:30)
[2017-05-24] MEDS ORDERED: VANCOMYCIN PER PHARMACY 0 MG IV SCH (00:30)
[2017-05-24] MEDS ORDERED: MORPHINE SULF INJ 2 MG/ML SYRINGE 1ML IV PRN (00:30)
[2017-05-24] MEDS ORDERED: NITROGLYCERIN 0.4 MG SL TAB SL PRN (00:30)
[2017-05-24] MEDS ORDERED: HYDROcodone-ACET 5/325MG TAB PO PRN (00:30)
[2017-05-24] MEDS: MORPHINE SULF INJ 2 MG/ML SYRINGE 1ML IV PRN ×4 (01:19→12:23)
[2017-05-24] MEDS ORDERED: CARISOPRODOL 350 MG TAB PO ONE (03:15)
[2017-05-24] MEDS: ALBUTEROL SULF 2.5 MG/0.5ML(0.5%) NEB SOLN NEB SCH ×3 (06:10→18:29)
[2017-05-24] MEDS: IPRATROPIUM BROM 0.5 MG/2.5ML INH SOL NEB SCH ×3 (06:10→18:29)
[2017-05-24] MEDS: PANTOPRAZOLE 40 MG/10 ML VIAL IV SCH (10:00)
[2017-05-24] MEDS: VANCOMYCIN 1GM/250ML 250 ML IV SCH ×2 (10:44→21:46)
[2017-05-24] MEDS ORDERED: IOHEXOL 350 MG/ML 100ML IJ ONE ×2 (12:13→16:27)
[2017-05-24] MEDS ORDERED: FENT50DI2 (12:18)
[2017-05-24] MEDS ORDERED: HYDROmorphone HCL 2 MG/ML VL IV ONE (12:45)
[2017-05-24] MEDS: CARISOPRODOL 350 MG TAB PEG SCH ×3 (12:45→23:45)
[2017-05-24] MEDS ORDERED: TPN PER PHARMACY 0 ML IV SCH (13:15)
[2017-05-24 14:48] LABS: Albumin 3.5 g/dL (3.4-5.0); Alkaline Phosphatase 117 U/L (45-117); Anion Gap 10 (5-15); Aspartate Aminotransferase 20 U/L (15-37); Bilirubin, Total 0.8 mg/dL (0.2-1.0); Blood Urea Nitrogen 8 mg/dL (7-18); Calcium 8.6 mg/dL (8.5-10.1); Carbon Dioxide 18 mmol/L (21-32); Chloride 112 mmol/L (98-107); Glucose 73 mg/dL (74-106); Magnesium 2.2 mg/dL (1.6-2.6); Phosphorus 2.5 mg/dL (2.5-4.90); Sodium 140 mmol/L (136-145); Total Protein 7.8 g/dL (6.4-8.2); Triglycerides 96 mg/dL (< 150)
[2017-05-24 15:40] LABS: GFR African American 1495 mL/min; GFR Non-African American 1236 mL/min
[2017-05-24] MEDS: OXYCODONE W/ ACETAMINOPHEN 5/325MG TABLET GT PRN (15:58)
[2017-05-24] MEDS ORDERED: LEVOFLOXACIN 500MG 100 ML IV SCH (16:15)
[2017-05-24] MEDS ORDERED: LEVO500T21 GT (16:15)
[2017-05-24] MEDS ORDERED: LEVOFLOXACIN 500MG 100 ML IV ONE ×2 (17:26→18:00)
[2017-05-24] MEDS ORDERED: PIPERACILLIN-TAZOB 3.375GM/D5W100ML IV SCH (18:00)
[2017-05-24] MEDS ORDERED: TPN PER PHARMACY IV NR ×5 (20:00)
[2017-05-24] MEDS: HYDROmorphone HCL 2 MG/ML VL IV PRN (23:06)
[2017-05-25] MEDS: IPRATROPIUM BROM 0.5 MG/2.5ML INH SOL NEB SCH ×4 (00:30→18:30)
[2017-05-25] MEDS: ALBUTEROL SULF 2.5 MG/0.5ML(0.5%) NEB SOLN NEB SCH ×4 (00:30→18:31)
[2017-05-25] MEDS: OXYCODONE W/ ACETAMINOPHEN 5/325MG TABLET GT PRN ×3 (01:47→14:37)
[2017-05-25] MEDS: HYDROmorphone HCL 2 MG/ML VL IV PRN ×4 (05:14→21:49)
[2017-05-25 05:31] VITALS: BP 111/67
[2017-05-25] MEDS: CARISOPRODOL 350 MG TAB PEG SCH ×3 (05:46→18:52)
[2017-05-25] MEDS: ACCU-CHEK COMFORT CURVE STRIP VI SCH ×3 (06:00→23:53)
[2017-05-25] MEDS ORDERED: DEXTROSE (50%) 50ML SYRG IV SCH ×2 (06:00→22:45)
[2017-05-25] MEDS: InsuLIN REG 1unit/0.01ml Soln (100units/ml) SC SCH ×3 (06:00→23:54)
[2017-05-25 07:46] LABS: Albumin 3.1 g/dL (3.4-5.0); Alkaline Phosphatase 122 U/L (45-117); Anion Gap 10 (5-15); Aspartate Aminotransferase 18 U/L (15-37); Bilirubin, Total 0.6 mg/dL (0.2-1.0); Blood Urea Nitrogen 9 mg/dL (7-18); Calcium 8.1 mg/dL (8.5-10.1); Carbon Dioxide 19 mmol/L (21-32); Chloride 110 mmol/L (98-107); Glucose 123 mg/dL (74-106); Magnesium 1.9 mg/dL (1.6-2.6); Phosphorus 1.8 mg/dL (2.5-4.90); Sodium 139 mmol/L (136-145); Total Protein 7.1 g/dL (6.4-8.2)
[2017-05-25 07:59] LABS: GFR African American 1495 mL/min; GFR Non-African American 1236 mL/min
[2017-05-25 08:13] LABS: Potassium 2.9 mmol/L (3.5-5.1)
[2017-05-25 09:00] VITALS: BP 110/65
[2017-05-25] MEDS: PANTOPRAZOLE 40 MG/10 ML VIAL IV SCH (10:41)
[2017-05-25] MEDS: POTASSIUM CHL 10MEQ/100ML 100 ML IV SCH ×2 (10:42→11:50)
[2017-05-25] MEDS: VANCOMYCIN 1GM/250ML 250 ML IV SCH ×2 (10:49→23:00)
[2017-05-25] MEDS ORDERED: POTASSIUM PHOSPHATE 44 MEQ in NS 0.9% 250 ML IV ONE (12:00)
[2017-05-25] MEDS ORDERED: POTASSIUM CHL 10% (20 MEQ/15ML) 15ml ORAL SOLN GT ONE (12:15)
[2017-05-25 12:31] LABS: Basophils # (auto) 0 uL; Basophils % (auto) 0.7 % (0.0-2.0); Eosinophils # (auto) 0.1 uL; Lymphocytes # (auto) 0.7 uL; Mean Platelet Volume 8.8 fL (6.9-10.8); Monocytes # (auto) 0.6 uL; Nucleated Red Blood Cells % 0.1 %; Red Cell Distribution Width 18.1 % (11.8-14.3)
[2017-05-25 12:34] LABS: Eosinophils % (auto) 2.1 % (0.0-7.0); Hematocrit 30.4 % (41.0-53.0); Hemoglobin 9.9 g/dL (13.5-17.5); Lymphocytes % (auto) 11.5 % (10.0-50.0); Mean Corpuscular Hemoglobin 25.9 pg (28.0-32.0); Mean Corpuscular Hgb Conc. 32.5 g/dL (32.0-36.0); Mean Corpuscular Volume 79.7 fL (80.0-100.0); Monocytes % (auto) 9.6 % (0.0-12.0); Neutrophils # (auto) 4.6 uL; Neutrophils % (auto) 76.1 % (37.0-80.0); Platelet Count (auto) 165 10^3/uL (140-450)
[2017-05-25 13:00] VITALS: BP 120/69
[2017-05-25] MEDS ORDERED: OXYCODONE W/ ACETAMINOPHEN 5/325MG TABLET PO PRN (16:00)
[2017-05-25 17:00] VITALS: BP 110/76
[2017-05-25] MEDS: ENOXAPARIN SOD 40 MG/0.4 ML SYRINGE SC SCH (17:13)
[2017-05-25] MEDS ORDERED: POTASSIUM CHL 10MEQ/100ML 100 ML IV ONE (19:00)
[2017-05-25] MEDS ORDERED: TPN PER PHARMACY IV NR ×10 (20:00)
[2017-05-25] MEDS ORDERED: TPN PER PHARMACY 0 ML IV SCH (21:00)
[2017-05-25 22:00] VITALS: BP 129/87
[2017-05-25] MEDS ORDERED: LEVOFLOXACIN 500MG 100 ML IV SCH (22:00)
[2017-05-25] MEDS ORDERED: AMINO ACID INFUSION IN D10W 1,000 ML IV NR (22:45)
[2017-05-25 22:53] LABS: Magnesium 1.7 mg/dL (1.6-2.6); Phosphorus 3.6 mg/dL (2.5-4.90)
[2017-05-26] MEDS: CARISOPRODOL 350 MG TAB PEG SCH ×5 (00:10→23:40)
[2017-05-26] MEDS: ALBUTEROL SULF 2.5 MG/0.5ML(0.5%) NEB SOLN NEB SCH ×4 (00:12→18:23)
[2017-05-26] MEDS: IPRATROPIUM BROM 0.5 MG/2.5ML INH SOL NEB SCH ×4 (00:12→18:23)
[2017-05-26] MEDS: HYDROmorphone HCL 2 MG/ML VL IV PRN ×6 (02:01→23:41)
[2017-05-26 05:00] VITALS: BP 143/85
[2017-05-26] MEDS: InsuLIN REG 1unit/0.01ml Soln (100units/ml) SC SCH ×3 (06:00→18:00)
[2017-05-26] MEDS: ACCU-CHEK COMFORT CURVE STRIP VI SCH ×4 (06:05→23:41)
[2017-05-26 07:03] LABS: Hematocrit 33.4 % (41.0-53.0); Lymphocytes # (auto) 1.1 uL; Lymphocytes % (auto) 17.8 % (10.0-50.0); Neutrophils # (auto) 4.1 uL; Red Cell Distribution Width 18.1 % (11.8-14.3)
[2017-05-26 07:07] LABS: Basophils # (auto) 0 uL; Basophils % (auto) 0.6 % (0.0-2.0); Eosinophils # (auto) 0.3 uL; Eosinophils % (auto) 4.6 % (0.0-7.0); Mean Corpuscular Hgb Conc. 32.8 g/dL (32.0-36.0); Mean Corpuscular Volume 79.3 fL (80.0-100.0); Mean Platelet Volume 8.9 fL (6.9-10.8); Monocytes # (auto) 0.7 uL; Monocytes % (auto) 11.5 % (0.0-12.0); Neutrophils % (auto) 65.5 % (37.0-80.0); Nucleated Red Blood Cells % 0.3 %; Platelet Count (auto) 167 10^3/uL (140-450); White Blood Cell 6.3 10^3/uL (4.4-10.8)
[2017-05-26 07:29] LABS: Albumin 3.2 g/dL (3.4-5.0); Alkaline Phosphatase 118 U/L (45-117); Anion Gap 10 (5-15); Aspartate Aminotransferase 12 U/L (15-37); Bilirubin, Total 0.7 mg/dL (0.2-1.0); Blood Urea Nitrogen 9 mg/dL (7-18); Calcium 8.2 mg/dL (8.5-10.1); Carbon Dioxide 18 mmol/L (21-32); Chloride 112 mmol/L (98-107); Glucose 89 mg/dL (74-106); Magnesium 1.8 mg/dL (1.6-2.6); Phosphorus 2.4 mg/dL (2.5-4.90); Sodium 140 mmol/L (136-145); Total Protein 7.4 g/dL (6.4-8.2)
[2017-05-26 07:49] LABS: GFR African American 233 mL/min; GFR Non-African American 193 mL/min
[2017-05-26 09:00] VITALS: BP 121/71
[2017-05-26] MEDS: PANTOPRAZOLE 40 MG/10 ML VIAL IV SCH (09:48)
[2017-05-26] MEDS: ENOXAPARIN SOD 40 MG/0.4 ML SYRINGE SC SCH (09:51)
[2017-05-26] MEDS ORDERED: POTASSIUM PHOSPHATE 44 MEQ in NS 0.9% 250 ML IV ONE (10:00)
[2017-05-26] MEDS ORDERED: VANCOMYCIN 1GM/250ML 250 ML IV SCH (10:00)
[2017-05-26] MEDS ORDERED: AMIKACIN 0 ML IV SCH (10:45)
[2017-05-26] MEDS ORDERED: POTASSIUM CHL 10MEQ/100ML 100 ML IV SCH (10:45)
[2017-05-26] MEDS: AMIKACIN 1,500 MG in D5W 5% 250 ML IV SCH (12:00)
[2017-05-26] MEDS ORDERED: AMIKACIN 1,500 MG in D5W 5% 100 ML IV SCH (12:00)
[2017-05-26 13:00] VITALS: BP 130/84
[2017-05-26] MEDS ORDERED: POTASSIUM CHLORIDE 40 MEQ in SODIUM CHL 0.9% 250 ML IV ONE (16:45)
[2017-05-26 17:00] VITALS: BP 133/81
[2017-05-26] MEDS: MUPIROCIN 2% OINT 22GM EACHNOSTRI SCH ×2 (18:00→21:05)
[2017-05-26] MEDS ORDERED: TPN PER PHARMACY IV NR ×9 (20:00)
[2017-05-26 21:01] VITALS: BP 133/81
[2017-05-26 21:39] VITALS: BP 136/92
[2017-05-27] VITALS (7 sets, daily range): BP systolic 114–129; BP diastolic 70–81
[2017-05-27] MEDS: ALBUTEROL SULF 2.5 MG/0.5ML(0.5%) NEB SOLN NEB SCH ×4 (00:47→18:15)
[2017-05-27] MEDS: IPRATROPIUM BROM 0.5 MG/2.5ML INH SOL NEB SCH ×4 (00:47→18:15)
[2017-05-27] MEDS: HYDROmorphone HCL 2 MG/ML VL IV PRN ×5 (03:51→20:25)
[2017-05-27] MEDS: CARISOPRODOL 350 MG TAB PEG SCH ×3 (06:23→18:13)
[2017-05-27] MEDS: ACCU-CHEK COMFORT CURVE STRIP VI SCH ×3 (06:24→18:14)
[2017-05-27] MEDS: InsuLIN REG 1unit/0.01ml Soln (100units/ml) SC SCH ×4 (06:24→18:00)
[2017-05-27 07:03] LABS: Albumin 3.1 g/dL (3.4-5.0); Alkaline Phosphatase 106 U/L (45-117); Anion Gap 7 (5-15); Aspartate Aminotransferase 11 U/L (15-37); Bilirubin, Total 0.6 mg/dL (0.2-1.0); Blood Urea Nitrogen 9 mg/dL (7-18); Calcium 8.1 mg/dL (8.5-10.1); Carbon Dioxide 21 mmol/L (21-32); Chloride 113 mmol/L (98-107); Glucose 128 mg/dL (74-106); Magnesium 1.8 mg/dL (1.6-2.6); Phosphorus 2.9 mg/dL (2.5-4.90); Potassium 3.7 mmol/L (3.5-5.1); Sodium 141 mmol/L (136-145); Total Protein 7.2 g/dL (6.4-8.2)
[2017-05-27 07:17] LABS: BUN/Creatinine Ratio 16.4; GFR African American 209 mL/min; GFR Non-African American 173 mL/min
[2017-05-27] MEDS: MUPIROCIN 2% OINT 22GM EACHNOSTRI SCH ×2 (10:00→21:44)
[2017-05-27] MEDS: PANTOPRAZOLE 40 MG/10 ML VIAL IV SCH (10:00)
[2017-05-27] MEDS: ENOXAPARIN SOD 40 MG/0.4 ML SYRINGE SC SCH (10:00)
[2017-05-27] MEDS: AMIKACIN 1,500 MG in D5W 5% 250 ML IV SCH (10:00)
[2017-05-27] MEDS ORDERED: fentaNYL 25MCG/HR 25 MCG/HR PAT TD SCH (15:30)
[2017-05-27] MEDS ORDERED: ALBUTEROL SULF 2.5 MG/0.5ML(0.5%) NEB SOLN NEB PRN (17:15)
[2017-05-27] MEDS: MEROPENEM 1GM IVPB 100 ML IV SCH (19:48)
[2017-05-27] MEDS ORDERED: TPN PER PHARMACY IV NR ×9 (20:00)
[2017-05-28] MEDS: CARISOPRODOL 350 MG TAB PEG SCH ×5 (00:28→23:51)
[2017-05-28] MEDS: ALBUTEROL SULF 2.5 MG/0.5ML(0.5%) NEB SOLN NEB SCH ×4 (00:29→19:46)
[2017-05-28] MEDS: IPRATROPIUM BROM 0.5 MG/2.5ML INH SOL NEB SCH ×4 (00:29→19:45)
[2017-05-28] MEDS: HYDROmorphone HCL 2 MG/ML VL IV PRN ×6 (00:30→20:41)
[2017-05-28] MEDS: MEROPENEM 1GM IVPB 100 ML IV SCH ×3 (02:04→17:58)
[2017-05-28 05:11] VITALS: BP 119/77
[2017-05-28] MEDS: InsuLIN REG 1unit/0.01ml Soln (100units/ml) SC SCH ×4 (06:00→18:00)
[2017-05-28] MEDS: ACCU-CHEK COMFORT CURVE STRIP VI SCH ×4 (06:06→17:58)
[2017-05-28 06:29] LABS: Basophils # (auto) 0 uL; Basophils % (auto) 0.9 % (0.0-2.0); Hemoglobin 9.7 g/dL (13.5-17.5); Lymphocytes # (auto) 1.2 uL; Monocytes # (auto) 0.5 uL; Neutrophils # (auto) 3.2 uL; Nucleated Red Blood Cells % 0.1 %; Red Cell Distribution Width 18.5 % (11.8-14.3); White Blood Cell 5.3 10^3/uL (4.4-10.8)
[2017-05-28 06:31] LABS: Eosinophils # (auto) 0.3 uL; Eosinophils % (auto) 6.6 % (0.0-7.0); Hematocrit 29.8 % (41.0-53.0); Lymphocytes % (auto) 22.3 % (10.0-50.0); Mean Corpuscular Hemoglobin 25.9 pg (28.0-32.0); Mean Corpuscular Hgb Conc. 32.7 g/dL (32.0-36.0); Mean Corpuscular Volume 79.1 fL (80.0-100.0); Mean Platelet Volume 8.7 fL (6.9-10.8); Monocytes % (auto) 9.3 % (0.0-12.0); Neutrophils % (auto) 60.9 % (37.0-80.0); Platelet Count (auto) 164 10^3/uL (140-450)
[2017-05-28 06:46] LABS: Albumin 3.1 g/dL (3.4-5.0); Alkaline Phosphatase 99 U/L (45-117); Anion Gap 7 (5-15); Aspartate Aminotransferase 15 U/L (15-37); Bilirubin, Total 0.5 mg/dL (0.2-1.0); Blood Urea Nitrogen 10 mg/dL (7-18); Calcium 8.1 mg/dL (8.5-10.1); Carbon Dioxide 23 mmol/L (21-32); Chloride 110 mmol/L (98-107); Glucose 117 mg/dL (74-106); Phosphorus 2.4 mg/dL (2.5-4.90); Potassium 3.1 mmol/L (3.5-5.1); Sodium 140 mmol/L (136-145); Total Protein 7.3 g/dL (6.4-8.2)
[2017-05-28 07:04] LABS: GFR African American 233 mL/min; GFR Non-African American 193 mL/min
[2017-05-28 09:00] VITALS: BP 121/70
[2017-05-28] MEDS: ENOXAPARIN SOD 40 MG/0.4 ML SYRINGE SC SCH (10:33)
[2017-05-28] MEDS: PANTOPRAZOLE 40 MG/10 ML VIAL IV SCH (10:33)
[2017-05-28] MEDS: MUPIROCIN 2% OINT 22GM EACHNOSTRI SCH ×2 (10:34→22:16)
[2017-05-28] MEDS: POTASSIUM CHL 10MEQ/100ML 100 ML IV SCH ×4 (11:47→17:58)
[2017-05-28 13:04] VITALS: BP 133/80
[2017-05-28 17:46] VITALS: BP 132/78
[2017-05-28] MEDS ORDERED: TPN PER PHARMACY IV NR ×9 (20:00)
[2017-05-28 22:00] VITALS: BP 115/69
[2017-05-29] MEDS: ALBUTEROL SULF 2.5 MG/0.5ML(0.5%) NEB SOLN NEB SCH ×2 (00:20→06:20)
[2017-05-29] MEDS: IPRATROPIUM BROM 0.5 MG/2.5ML INH SOL NEB SCH ×2 (00:20→06:20)
[2017-05-29] MEDS: ACCU-CHEK COMFORT CURVE STRIP VI SCH ×2 (00:21→06:00)
[2017-05-29] MEDS: HYDROmorphone HCL 2 MG/ML VL IV PRN ×2 (00:44→05:02)
[2017-05-29] MEDS: MEROPENEM 1GM IVPB 100 ML IV SCH (01:57)
[2017-05-29 02:20] VITALS: BP 132/78
[2017-05-29] MEDS: CARISOPRODOL 350 MG TAB PEG SCH (05:33)
[2017-05-29] MEDS: InsuLIN REG 1unit/0.01ml Soln (100units/ml) SC SCH ×2 (06:00)
[2017-05-29 06:06] VITALS: BP 146/76
[2017-05-29 06:52] LABS: Albumin 3.1 g/dL (3.4-5.0); Alkaline Phosphatase 110 U/L (45-117); Anion Gap 10 (5-15); Aspartate Aminotransferase 18 U/L (15-37); Bilirubin, Total 0.6 mg/dL (0.2-1.0); Blood Urea Nitrogen 11 mg/dL (7-18); Calcium 8.3 mg/dL (8.5-10.1); Carbon Dioxide 22 mmol/L (21-32); Chloride 106 mmol/L (98-107); Glucose 89 mg/dL (74-106); Magnesium 2.4 mg/dL (1.6-2.6); Phosphorus 2.8 mg/dL (2.5-4.90); Potassium 4.1 mmol/L (3.5-5.1); Sodium 138 mmol/L (136-145); Total Protein 7.5 g/dL (6.4-8.2)
[2017-05-29 06:57] LABS: GFR African American 233 mL/min; GFR Non-African American 193 mL/min
== END 2017-05-29 09:00 | disposition home health service (06) | DRG 130 ==
LOC: EDBD 20:39 → ER 20:48 → TELE 20:49 → TELE-EAST 05-24 20:58
PROVIDERS: ADMIT Nurse Practitioner Family; ATTEND Internal Medicine
PROC: 5A1955Z Respiratory Ventilation, Greater than 96 Consecutive Hours (ICD-10-PCS; principal; 2017-05-24)
PROC: 06HN33Z Insertion of Infusion Device into Left Femoral Vein, Percutaneous Approach (ICD-10-PCS; 2017-05-24)
DX: J69.0 Pneumonitis due to inhalation of food and vomit (principal); G82.50 Quadriplegia, unspecified; G71.0 Muscular dystrophy; J81.1 Chronic pulmonary edema; E46 Unspecified protein-calorie malnutrition; M41.9 Scoliosis, unspecified; Z93.1 Gastrostomy status; Z99.11 Dependence on respirator [ventilator] status; J96.10 Chronic respiratory failure, unspecified whether with hypoxia or hypercapnia; Z93.0 Tracheostomy status; N39.0 Urinary tract infection, site not specified; D63.8 Anemia in other chronic diseases classified elsewhere; M85.80 Other specified disorders of bone density and structure, unspecified site; M48.00 Spinal stenosis, site unspecified; J44.9 Chronic obstructive pulmonary disease, unspecified; M54.9 Dorsalgia, unspecified; G89.4 Chronic pain syndrome; K21.9 Gastro-esophageal reflux disease without esophagitis; Z16.24 Resistance to multiple antibiotics; Z53.29 Procedure and treatment not carried out because of patient's decision for other reasons; Z93.3 Colostomy status; Z88.2 Allergy status to sulfonamides; Z88.8 Allergy status to other drugs, medicaments and biological substances; Z68.32 Body mass index [BMI] 32.0-32.9, adult; Z74.01 Bed confinement status; Z22.322 Carrier or suspected carrier of Methicillin resistant Staphylococcus aureus; Z86.14 Personal history of Methicillin resistant Staphylococcus aureus infection; Z87.01 Personal history of pneumonia (recurrent); Z83.3 Family history of diabetes mellitus
CPT/HCPCS: 36415; 36556; 71010; 80053; 81001; 83605; 85025; 87040; 87070; 87205; 96361; 96365; 96366; 96367; 96375; 99285; J0696; J1170; J2405; 71275; 80150; 80202; 82040; 82270; 82962; 83735; 84100; 84478; 87077; 87081; 87186; 93005; 94002; 94003; 94640; C9113; J1642; J1815; J1956; J2185; J3480; J7060

== ENCOUNTER 2020-12-29 15:34 | Inpatient (IN) | payer MEDICARE, MEDICAID ==
[~2020-12-29] VITALS: Ht 157.5 cm; Wt 73.0 kg
[~2020-12-29 15:34] MED LIST changes: +ALPR0.5T GT; +CLON0.1T PO; -FENT50DI11 TD; +FURO1TAB33 PO; +LEVO500T31 GT; +MORP1TAB14 PO; -PERCOT GT; +PERCOT PO; +TRAZ-181 PO
[2020-12-29] MEDS ORDERED: SODIUM CHLORIDE 0.9% 1,000 ML IV ONE (16:00)
[2020-12-29] MEDS ORDERED: SODIUM CHLORIDE 0.9% 500 ML IVB ONE (16:00)
[2020-12-29] MEDS ORDERED: ACETAMINOPHEN 650 MG RECT SUPP PR ONE (16:45)
[2020-12-29 16:49] LABS: Hematocrit 24.3 % (41.0-53.0); Hemoglobin 8.1 g/dL (13.5-17.5); Mean Corpuscular Hemoglobin 25.8 pg (28.0-32.0); Mean Corpuscular Hgb Conc. 33.3 g/dL (32.0-36.0); Mean Corpuscular Volume 77.7 fL (80.0-100.0); Red Blood Cells 3.13 10^6/uL (4.5-5.90); White Blood Cell 4.9 10^3/uL (4.4-10.8)
[2020-12-29 16:57] LABS: Urine Bacteria FEW /hpf (None Seen); Urine Blood Negative /uL (Negative); Urine Specific Gravity 1.014 (1.001-1.035); Urine WBC 3 /hpf (0 - 3)
[2020-12-29] MEDS ORDERED: cefTRIAXone 1GM/50ML D5W 50 ML IV ONE (17:00)
[2020-12-29 17:04] LABS: Alanine Aminotransferase 32 U/L (16-61); Albumin 2.4 g/dL (3.4-5.0); Anion Gap 8 (5-15); Aspartate Aminotransferase 20 U/L (15-37); Blood Urea Nitrogen 9 mg/dL (7-18); Calcium 7.9 mg/dL (8.5-10.1); Carbon Dioxide 21 mmol/L (21-32); Chloride 104 mmol/L (98-107); Glucose 94 mg/dL (74-106); Magnesium 2.1 mg/dL (1.6-2.6); Potassium 4.4 mmol/L (3.5-5.1); Sodium 133 mmol/L (136-145)
[2020-12-29 17:07] LABS: Alkaline Phosphatase 180 U/L (45-117); Total Protein 6.9 g/dL (6.4-8.2)
[2020-12-29 17:16] LABS: Red Cell Distribution Width 23.8 % (11.8-14.3)
[2020-12-29 17:17] LABS: Basophils % (manual) 0 (0.0-2.0); Blast Cells 0; Eosinophils % (manual) 0 (0-7); Myelocytes % 0; Promyelocytes % 0; Reactive Lymphocytes 0
[2020-12-29 17:37] LABS: Band Neutrophils % (manual) 13; Lymphocytes % (manual) 18 (10.0-50.0); Metamyelocytes % 1; Monocytes % (manual) 11 (0-12)
[2020-12-29 17:38] LABS: GFR African American 920 mL/min; GFR Non-African American 760 mL/min
[2020-12-29 17:49] VITALS: BP 168/85
[2020-12-29 18:28] VITALS: BP 114/71
[2020-12-29] MEDS ORDERED: LORazepam 2MG/ML-1ML VIAL IV ONE (18:30)
[2020-12-29 19:59] VITALS: BP 105/60
[2020-12-29] MEDS ORDERED: FAMOTIDINE (10MG/ML) 2ML VL IV SCH (20:00)
[2020-12-29] MEDS ORDERED: VANCOMYCIN PER PHARMACY 0 MG IV SCH ×2 (20:00→21:15)
[2020-12-29] MEDS ORDERED: ERTAPENEM SOD INJ 1 GM in SODIUM CHL 0.9% 50 ML IV ONE ×2 (20:00→20:28)
[2020-12-29] MEDS ORDERED: NITROGLYCERIN 0.4 MG SL TAB SL PRN (20:00)
[2020-12-29] MEDS ORDERED: ALBUTEROL SULF 2.5 MG/0.5ML(0.5%) NEB SOLN NEB PRN (20:00)
[2020-12-29] MEDS ORDERED: AZITHROMYCIN 500MG/ 250ML 250 ML IV ONE (20:00)
[2020-12-29] MEDS: SODIUM CHLORIDE 0.9% 1,000 ML IV SCH (20:15)
[2020-12-29] MEDS ORDERED: TPN PER PHARMACY 0 ML IV SCH ×2 (20:15→21:15)
[2020-12-29 21:18] LABS: Amylase 20 U/L (25-115); Lipase 45 U/L (73-393)
[2020-12-29 22:00] VITALS: BP 111/64
[2020-12-29] MEDS ORDERED: metroNIDAZOLE 500MG/100ML 100 ML IV ONE (22:24)
[2020-12-29] MEDS: metroNIDAZOLE 500MG/100ML 100 ML IV SCH (22:24)
[2020-12-29] MEDS ORDERED: MORPHINE SULFATE INJECTION 2 MG/ML SYRG ONE (23:00)
[2020-12-29] MEDS: MORPHINE SULFATE INJECTION 2 MG/ML SYRG IV PRN (23:04)
[2020-12-29] MEDS: FAMOTIDINE (10MG/ML) 2ML VL IV SCH (23:17)
[2020-12-29] MEDS ORDERED: ALBUTEROL SULF 2.5 MG/0.5ML(0.5%) NEB SOLN ONE (23:59)
[2020-12-29] MEDS ORDERED: IPRATROPIUM BROM 0.5 MG/2.5ML INH SOL ONE (23:59)
[2020-12-30] VITALS (7 sets, daily range): BP systolic 105–145; BP diastolic 60–85
[2020-12-30] MEDS: ALBUTEROL SULF 2.5 MG/0.5ML(0.5%) NEB SOLN NEB SCH ×4 (00:25→18:11)
[2020-12-30] MEDS: IPRATROPIUM BROM 0.5 MG/2.5ML INH SOL NEB SCH ×4 (00:25→18:11)
[2020-12-30] MEDS ORDERED: MORPHINE SULFATE INJECTION 2 MG/ML SYRG ONE (03:15)
[2020-12-30] MEDS: MORPHINE SULFATE INJECTION 2 MG/ML SYRG IV PRN ×5 (03:18→20:52)
[2020-12-30] MEDS ORDERED: IPRATROPIUM BROM 0.5 MG/2.5ML INH SOL ONE (05:40)
[2020-12-30] MEDS ORDERED: ALBUTEROL SULF 2.5 MG/0.5ML(0.5%) NEB SOLN ONE (05:40)
[2020-12-30] MEDS: metroNIDAZOLE 500MG/100ML 100 ML IV SCH (06:56)
[2020-12-30] MEDS ORDERED: AMINO ACID INFUSION IN D10W 1,000 ML IV NR (08:30)
[2020-12-30] MEDS: FAMOTIDINE (10MG/ML) 2ML VL IV SCH ×2 (09:15→19:45)
[2020-12-30] MEDS: SODIUM CHLORIDE 0.9% 1,000 ML IV SCH ×2 (09:20→19:46)
[2020-12-30] MEDS ORDERED: ERTAPENEM SOD INJ 1 GM in SODIUM CHL 0.9% 50 ML IV SCH (10:00)
[2020-12-30] MEDS ORDERED: ENOXAPARIN SOD 40 MG/0.4 ML SYRINGE SC SCH ×3 (10:00)
[2020-12-30] MEDS: ERTAPENEM SOD INJ 1 GM in SODIUM CHL 0.9% 50 ML IV SCH (10:41)
[2020-12-30 12:27] LABS: Alanine Aminotransferase 32 U/L (16-61); Albumin 2.1 g/dL (3.4-5.0); Anion Gap 8 (5-15); Aspartate Aminotransferase 27 U/L (15-37); Blood Urea Nitrogen 6 mg/dL (7-18); Carbon Dioxide 20 mmol/L (21-32); Chloride 112 mmol/L (98-107); Glucose 111 mg/dL (74-106); Magnesium 2.2 mg/dL (1.6-2.6); Potassium 3.5 mmol/L (3.5-5.1); Sodium 140 mmol/L (136-145)
[2020-12-30 12:34] LABS: Alkaline Phosphatase 160 U/L (45-117); Bilirubin, Total 0.8 mg/dL (0.2-1.0); Phosphorus 1.9 mg/dL (2.5-4.90); Pre Albumin 10.5 mg/dL (20.0-40.0); Total Protein 6.7 g/dL (6.4-8.2); Triglycerides 143 mg/dL (< 150)
[2020-12-30] MEDS ORDERED: SODIUM CHLORIDE 0.9% 1,000 ML IV SCH (12:45)
[2020-12-30] MEDS ORDERED: POTASSIUM PHOSPHATE 44 MEQ in D5W 5% 250 ML IV ONE (12:45)
[2020-12-30 12:47] LABS: GFR African American 920 mL/min; GFR Non-African American 760 mL/min
[2020-12-30] MEDS: VANCOMYCIN 1GM/250ML 250 ML IV SCH ×2 (13:22→19:45)
[2020-12-30] MEDS ORDERED: metroNIDAZOLE 500MG/100ML 100 ML IV ONE (16:15)
[2020-12-30] MEDS: AZITHROMYCIN 500MG/ 250ML 250 ML IV SCH (16:37)
[2020-12-30] MEDS: InsuLIN REG 1unit/0.01ml Soln (100units/ml) SC SCH (18:00)
[2020-12-30] MEDS ORDERED: DEXTROSE (50%) 50ML SYRG IV SCH (18:00)
[2020-12-30] MEDS: ACCU-CHEK COMFORT CURVE STRIP VI SCH (18:23)
[2020-12-30] MEDS ORDERED: TPN PER PHARMACY IV NR ×9 (20:00)
[2020-12-30] MEDS: MUPIROCIN 2% OINT 15gm or 22gm EACHNOSTRI SCH (20:52)
[2020-12-30] MEDS: LORazepam 2MG/ML-1ML VIAL IV PRN (22:35)
[2020-12-31] MEDS: InsuLIN REG 1unit/0.01ml Soln (100units/ml) SC SCH ×4 (00:15→18:00)
[2020-12-31] MEDS: ACCU-CHEK COMFORT CURVE STRIP VI SCH ×4 (00:18→18:26)
[2020-12-31] MEDS: ALBUTEROL SULF 2.5 MG/0.5ML(0.5%) NEB SOLN NEB SCH ×4 (00:42→18:28)
[2020-12-31] MEDS: IPRATROPIUM BROM 0.5 MG/2.5ML INH SOL NEB SCH ×4 (00:42→18:28)
[2020-12-31] MEDS: MORPHINE SULFATE INJECTION 2 MG/ML SYRG IV PRN ×2 (02:41→08:30)
[2020-12-31] MEDS: VANCOMYCIN 1GM/250ML 250 ML IV SCH ×2 (03:42→20:58)
[2020-12-31] MEDS: LORazepam 2MG/ML-1ML VIAL IV PRN ×2 (04:36→11:25)
[2020-12-31 05:00] VITALS: BP 143/80
[2020-12-31 05:56] LABS: Basophils # (auto) 0 10 ^3/uL (0-0.2); Basophils % (auto) 0.7 % (0.0-2.0); Eosinophils # (auto) 0.2 10 ^3/uL (0-0.8); Eosinophils % (auto) 3.4 % (0.0-7.0); Hematocrit 24.8 % (41.0-53.0); Hemoglobin 8.2 g/dL (13.5-17.5); Lymphocytes # (auto) 0.7 10 ^3/uL (0.4-5.4); Lymphocytes % (auto) 11.1 % (10.0-50.0); Mean Corpuscular Hemoglobin 25.7 pg (28.0-32.0); Mean Corpuscular Hgb Conc. 33.3 g/dL (32.0-36.0); Mean Corpuscular Volume 77.2 fL (80.0-100.0); Monocytes # (auto) 0.7 10 ^3/uL (0-1.3); Neutrophils # (auto) 4.4 10 ^3/uL (1.6-8.6); Neutrophils % (auto) 72.8 % (37.0-80.0); Nucleated Red Blood Cells % 0.1 %
[2020-12-31] MEDS: metroNIDAZOLE 500MG/100ML 100 ML IV SCH ×3 (05:56→23:08)
[2020-12-31 05:58] LABS: Red Cell Distribution Width 23.6 % (11.8-14.3)
[2020-12-31 06:19] LABS: Albumin 2.2 g/dL (3.4-5.0); Anion Gap 8 (5-15); Blood Urea Nitrogen 7 mg/dL (7-18); Calcium 8.1 mg/dL (8.5-10.1); Carbon Dioxide 23 mmol/L (21-32); Chloride 111 mmol/L (98-107); Glucose 154 mg/dL (74-106); Magnesium 2.1 mg/dL (1.6-2.6); Sodium 142 mmol/L (136-145)
[2020-12-31 06:27] LABS: Alanine Aminotransferase 30 U/L (16-61); Alkaline Phosphatase 155 U/L (45-117); Aspartate Aminotransferase 20 U/L (15-37); Bilirubin, Total 0.9 mg/dL (0.2-1.0); Phosphorus 2.3 mg/dL (2.5-4.90); Total Protein 6.9 g/dL (6.4-8.2)
[2020-12-31 06:28] LABS: BUN/Creatinine Ratio 46.7; GFR African American 920 mL/min; GFR Non-African American 760 mL/min; Potassium 2.9 mmol/L (3.5-5.1)
[2020-12-31] MEDS: FAMOTIDINE (10MG/ML) 2ML VL IV SCH ×2 (08:28→21:00)
[2020-12-31] MEDS ORDERED: SODIUM CHLORIDE 0.9% 1,000 ML IV SCH ×2 (09:15→20:00)
[2020-12-31] MEDS: ERTAPENEM SOD INJ 1 GM in SODIUM CHL 0.9% 50 ML IV SCH (11:05)
[2020-12-31] MEDS: MUPIROCIN 2% OINT 15gm or 22gm EACHNOSTRI SCH ×2 (11:06→22:00)
[2020-12-31] MEDS: POTASSIUM CHL 20MEQ/100ML 100 ML IV SCH ×2 (11:40→20:47)
[2020-12-31 11:41] VITALS: BP 154/100
[2020-12-31 12:00] VITALS: BP 154/98
[2020-12-31] MEDS: AZITHROMYCIN 500MG/ 250ML 250 ML IV SCH (15:01)
[2020-12-31] MEDS ORDERED: POTASSIUM PHOSPHATE 22 MEQ in SODIUM CHL 0.9% 100 ML IV ONE (16:00)
[2020-12-31] MEDS: SODIUM CHLORIDE 0.9% 1,000 ML IV SCH ×2 (16:00→20:55)
[2020-12-31] MEDS ORDERED: PPN PER PHARMACY IV NR ×9 (20:00)
[2020-12-31 21:54] VITALS: BP 112/59
[2021-01-01] MEDS: InsuLIN REG 1unit/0.01ml Soln (100units/ml) SC SCH ×4 (00:30→17:52)
[2021-01-01] MEDS: ACCU-CHEK COMFORT CURVE STRIP VI SCH ×4 (00:30→17:45)
[2021-01-01] MEDS: ALBUTEROL SULF 2.5 MG/0.5ML(0.5%) NEB SOLN NEB SCH ×5 (00:31→23:59)
[2021-01-01] MEDS: IPRATROPIUM BROM 0.5 MG/2.5ML INH SOL NEB SCH ×5 (00:31→23:59)
[2021-01-01] MEDS: MORPHINE SULFATE INJECTION 2 MG/ML SYRG IV PRN ×5 (00:35→21:31)
[2021-01-01] MEDS: POTASSIUM CHL 20MEQ/100ML 100 ML IV SCH (03:05)
[2021-01-01] MEDS: LORazepam 2MG/ML-1ML VIAL IV PRN ×3 (04:13→17:02)
[2021-01-01 04:49] VITALS: BP 125/69
[2021-01-01 05:17] LABS: Hemoglobin 7.6 g/dL (13.5-17.5); Mean Corpuscular Hemoglobin 25.6 pg (28.0-32.0)
[2021-01-01 05:20] LABS: Hematocrit 23.2 % (41.0-53.0); Mean Corpuscular Hgb Conc. 32.7 g/dL (32.0-36.0); Mean Corpuscular Volume 78.3 fL (80.0-100.0); Red Blood Cells 2.97 10^6/uL (4.5-5.90)
[2021-01-01 05:32] LABS: Chloride 116 mmol/L (98-107); Potassium 4.6 mmol/L (3.5-5.1); Sodium 143 mmol/L (136-145)
[2021-01-01] MEDS: metroNIDAZOLE 500MG/100ML 100 ML IV SCH ×3 (05:32→22:43)
[2021-01-01 05:39] LABS: Alanine Aminotransferase 28 U/L (16-61); Albumin 2.1 g/dL (3.4-5.0); Alkaline Phosphatase 142 U/L (45-117); Anion Gap 6 (5-15); Aspartate Aminotransferase 26 U/L (15-37); Bilirubin, Total 1.1 mg/dL (0.2-1.0); Blood Urea Nitrogen 11 mg/dL (7-18); Calcium 8.2 mg/dL (8.5-10.1); Carbon Dioxide 21 mmol/L (21-32); Glucose 77 mg/dL (74-106); Magnesium 2.2 mg/dL (1.6-2.6); Phosphorus 2.6 mg/dL (2.5-4.90); Total Protein 6.7 g/dL (6.4-8.2)
[2021-01-01 05:41] LABS: BUN/Creatinine Ratio 73.3; GFR African American 920 mL/min; GFR Non-African American 760 mL/min
[2021-01-01 05:42] LABS: Red Cell Distribution Width 23.7 % (11.8-14.3)
[2021-01-01 05:43] LABS: Basophils % (manual) 0 (0.0-2.0); Metamyelocytes % 0
[2021-01-01 05:45] LABS: Blast Cells 0; Myelocytes % 0; Promyelocytes % 0; Reactive Lymphocytes 0
[2021-01-01 07:17] LABS: Band Neutrophils % (manual) 4; Eosinophils % (manual) 1 (0-7); Lymphocytes % (manual) 29 (10.0-50.0); Monocytes % (manual) 13 (0-12)
[2021-01-01] MEDS: VANCOMYCIN 1GM/250ML 250 ML IV SCH ×2 (08:50→21:29)
[2021-01-01] MEDS: FAMOTIDINE (10MG/ML) 2ML VL IV SCH ×2 (08:51→21:30)
[2021-01-01 09:00] VITALS: BP 129/66
[2021-01-01] MEDS: ERTAPENEM SOD INJ 1 GM in SODIUM CHL 0.9% 50 ML IV SCH (10:18)
[2021-01-01] MEDS: MUPIROCIN 2% OINT 15gm or 22gm EACHNOSTRI SCH ×2 (10:19→21:30)
[2021-01-01 13:00] VITALS: BP 116/60
[2021-01-01] MEDS: AZITHROMYCIN 500MG/ 250ML 250 ML IV SCH (15:08)
[2021-01-01 17:00] VITALS: BP 109/53
[2021-01-01] MEDS ORDERED: TPN PER PHARMACY IV NR ×9 (20:00)
[2021-01-01] MEDS: SODIUM CHLORIDE 0.9% 1,000 ML IV SCH (20:00)
[2021-01-01 22:00] VITALS: BP 109/66
[2021-01-02] VITALS (7 sets, daily range): BP systolic 99–132; BP diastolic 55–74
[2021-01-02] MEDS: LORazepam 2MG/ML-1ML VIAL IV PRN ×4 (00:19→20:19)
[2021-01-02] MEDS: ACCU-CHEK COMFORT CURVE STRIP VI SCH ×4 (00:25→18:08)
[2021-01-02] MEDS: MORPHINE SULFATE INJECTION 2 MG/ML SYRG IV PRN ×4 (03:20→22:44)
[2021-01-02] MEDS: metroNIDAZOLE 500MG/100ML 100 ML IV SCH (05:31)
[2021-01-02] MEDS: InsuLIN REG 1unit/0.01ml Soln (100units/ml) SC SCH ×4 (05:38→18:00)
[2021-01-02 05:56] LABS: Chloride 114 mmol/L (98-107); Sodium 143 mmol/L (136-145)
[2021-01-02 06:04] LABS: Alanine Aminotransferase 22 U/L (16-61); Albumin 2.1 g/dL (3.4-5.0); Alkaline Phosphatase 127 U/L (45-117); Anion Gap 6 (5-15); Aspartate Aminotransferase 16 U/L (15-37); BUN/Creatinine Ratio 73.3; Bilirubin, Total 0.8 mg/dL (0.2-1.0); Blood Urea Nitrogen 11 mg/dL (7-18); Carbon Dioxide 23 mmol/L (21-32); GFR African American 920 mL/min; GFR Non-African American 760 mL/min; Glucose 149 mg/dL (74-106); Magnesium 2.2 mg/dL (1.6-2.6); Phosphorus 2.1 mg/dL (2.5-4.90); Total Protein 6.6 g/dL (6.4-8.2)
[2021-01-02 06:26] LABS: Hematocrit 22.6 % (41.0-53.0); Hemoglobin 7.1 g/dL (13.5-17.5); Mean Corpuscular Hemoglobin 24.4 pg (28.0-32.0); Mean Corpuscular Hgb Conc. 31.5 g/dL (32.0-36.0); Mean Corpuscular Volume 77.5 fL (80.0-100.0); Red Blood Cells 2.92 10^6/uL (4.5-5.90); White Blood Cell 4.1 10^3/uL (4.4-10.8)
[2021-01-02 06:31] LABS: Red Cell Distribution Width 23.8 % (11.8-14.3)
[2021-01-02 06:32] LABS: Blast Cells 0; Metamyelocytes % 0; Promyelocytes % 0; Reactive Lymphocytes 0
[2021-01-02] MEDS: ALBUTEROL SULF 2.5 MG/0.5ML(0.5%) NEB SOLN NEB SCH ×3 (07:03→19:26)
[2021-01-02] MEDS: IPRATROPIUM BROM 0.5 MG/2.5ML INH SOL NEB SCH ×3 (07:03→19:27)
[2021-01-02 07:26] LABS: Band Neutrophils % (manual) 6; Basophils % (manual) 1 (0.0-2.0); Eosinophils % (manual) 5 (0-7); Lymphocytes % (manual) 27 (10.0-50.0); Monocytes % (manual) 3 (0-12); Myelocytes % 1
[2021-01-02] MEDS ORDERED: SODIUM PHOSPHATES 40 MEQ in D5W 5% 250 ML IV ONE (10:30)
[2021-01-02] MEDS: FAMOTIDINE (10MG/ML) 2ML VL IV SCH ×2 (10:49→22:18)
[2021-01-02] MEDS: ERTAPENEM SOD INJ 1 GM in SODIUM CHL 0.9% 50 ML IV SCH (10:49)
[2021-01-02] MEDS ORDERED: SODIUM CHLORIDE 0.9% 1,000 ML IV SCH (11:45)
[2021-01-02] MEDS: MUPIROCIN 2% OINT 15gm or 22gm EACHNOSTRI SCH ×2 (12:32→22:19)
[2021-01-02] MEDS ORDERED: MEROPENEM 1GM IVPB 100 ML IV SCH (14:00)
[2021-01-02] MEDS ORDERED: AZITHROMYCIN 500MG/ 250ML 250 ML IV SCH (15:00)
[2021-01-02] MEDS ORDERED: TPN PER PHARMACY IV NR ×9 (20:00)
[2021-01-02] MEDS ORDERED: CEFTAROLINE 600 MG in SODIUM CHL 0.9% 250 ML IV SCH (22:00)
[2021-01-02] MEDS: cefTAZidime 1 GM in SODIUM CHL 0.9% 50 ML IV SCH (22:20)
[2021-01-03] VITALS (31 sets, daily range): BP systolic 96–172; BP diastolic 50–96
[2021-01-03] MEDS: ACCU-CHEK COMFORT CURVE STRIP VI SCH ×4 (00:26→17:08)
[2021-01-03] MEDS: IPRATROPIUM BROM 0.5 MG/2.5ML INH SOL NEB SCH ×2 (00:28→07:59)
[2021-01-03] MEDS: ALBUTEROL SULF 2.5 MG/0.5ML(0.5%) NEB SOLN NEB SCH ×3 (00:28→22:26)
[2021-01-03] MEDS: LORazepam 2MG/ML-1ML VIAL IV PRN ×2 (02:30→21:11)
[2021-01-03] MEDS: InsuLIN REG 1unit/0.01ml Soln (100units/ml) SC SCH ×3 (06:00→17:08)
[2021-01-03] MEDS: cefTAZidime 1 GM in SODIUM CHL 0.9% 50 ML IV SCH ×3 (06:05→22:27)
[2021-01-03 06:52] LABS: Albumin 2.1 g/dL (3.4-5.0); Anion Gap 7 (5-15); Blood Urea Nitrogen 10 mg/dL (7-18); Calcium 7.9 mg/dL (8.5-10.1); Carbon Dioxide 22 mmol/L (21-32); Chloride 117 mmol/L (98-107); Glucose 97 mg/dL (74-106); Magnesium 2.3 mg/dL (1.6-2.6); Potassium 3.9 mmol/L (3.5-5.1); Sodium 146 mmol/L (136-145)
[2021-01-03 06:55] LABS: Alanine Aminotransferase 19 U/L (16-61); Alkaline Phosphatase 125 U/L (45-117); Aspartate Aminotransferase 15 U/L (15-37); BUN/Creatinine Ratio 66.7; Bilirubin, Total 0.6 mg/dL (0.2-1.0); GFR African American 920 mL/min; GFR Non-African American 760 mL/min; Phosphorus 3.9 mg/dL (2.5-4.90); Total Protein 6.4 g/dL (6.4-8.2)
[2021-01-03 07:02] LABS: INR 1.28 (0.9-1.15); Partial Thromboplastin Time 26.5 sec (23.0-31.2)
[2021-01-03 07:45] LABS: Hematocrit 20.4 % (41.0-53.0); Mean Corpuscular Hemoglobin 25.8 pg (28.0-32.0); Mean Corpuscular Hgb Conc. 32.7 g/dL (32.0-36.0); Mean Corpuscular Volume 78.8 fL (80.0-100.0); Red Blood Cells 2.59 10^6/uL (4.5-5.90)
[2021-01-03 07:54] LABS: Red Cell Distribution Width 23.8 % (11.8-14.3)
[2021-01-03 07:55] LABS: Hemoglobin 6.7 g/dL (13.5-17.5)
[2021-01-03 07:57] LABS: Basophils % (manual) 0 (0.0-2.0); Blast Cells 0; Promyelocytes % 0; Reactive Lymphocytes 0
[2021-01-03] MEDS: FAMOTIDINE (10MG/ML) 2ML VL IV SCH (08:31)
[2021-01-03] MEDS: MUPIROCIN 2% OINT 15gm or 22gm EACHNOSTRI SCH ×2 (08:32→21:13)
[2021-01-03] MEDS: MORPHINE SULFATE INJECTION 2 MG/ML SYRG IV PRN ×3 (08:32→23:59)
[2021-01-03] MEDS: PANTOPRAZOLE 40 MG/10 ML VIAL INJ IV SCH ×2 (10:00→21:12)
[2021-01-03 10:23] LABS: Band Neutrophils % (manual) 8; Eosinophils % (manual) 5 (0-7); Lymphocytes % (manual) 22 (10.0-50.0); Metamyelocytes % 3; Monocytes % (manual) 5 (0-12); Myelocytes % 3
[2021-01-03] MEDS ORDERED: DexAMETHasone SOD PHOS 10MG/1ML VIAL INJ IV ONE (13:01)
[2021-01-03] MEDS: LIDOCAINE W/ EPINEPHRINE 1% 20ML VIAL ONE ×2 (13:22→15:15)
[2021-01-03] MEDS ORDERED: MIDAZOLAM HCL 2MG/2ML 2ml VIAL (1mg/ml) ONE ×2 (13:23→13:24)
[2021-01-03] MEDS ORDERED: fentaNYL CITRATE 100 MCG/2 ML VL ONE (13:23)
[2021-01-03] MEDS ORDERED: HYDROmorphone HCL 2 MG/ML VL ONE (13:23)
[2021-01-03] MEDS ORDERED: fentaNYL CITRATE 5 ML ONE (13:24)
[2021-01-03] MEDS: BUPIVACAINE 0.25% INJ 50ML VIAL ONE ×2 (14:15→15:15)
[2021-01-03] MEDS ORDERED: ROCURONIUM 10MG/ML 10ML VIAL IV ONE (14:58)
[2021-01-03] MEDS ORDERED: LABETALOL HCL 5 MG/ML 4ML SYRINGE IV PRN (15:45)
[2021-01-03] MEDS ORDERED: HYDROmorphone HCL 2 MG/ML VL IV PRN (15:45)
[2021-01-03] MEDS ORDERED: MIDAZOLAM HCL 2MG/2ML 2ml VIAL (1mg/ml) IV PRN (15:45)
[2021-01-03] MEDS ORDERED: MORPHINE SULFATE INJECTION 2 MG/ML SYRG IV PRN (15:45)
[2021-01-03] MEDS ORDERED: ONDANSETRON HCL 4 MG/2 ML VIAL IV PRN (15:45)
[2021-01-03] MEDS ORDERED: ePHEDrine SULFATE 50 MG/ML AMP IV PRN (15:45)
[2021-01-03] MEDS: VANCOMYCIN 1GM/250ML 250 ML IV SCH (16:59)
[2021-01-03 17:10] LABS: Hemoglobin 9.6 g/dL (13.5-17.5); White Blood Cell 8.1 10^3/uL (4.4-10.8)
[2021-01-03 17:12] LABS: Hematocrit 29.1 % (41.0-53.0); Mean Corpuscular Hemoglobin 26.6 pg (28.0-32.0); Mean Corpuscular Hgb Conc. 32.9 g/dL (32.0-36.0); Mean Corpuscular Volume 80.8 fL (80.0-100.0)
[2021-01-03] MEDS ORDERED: LABETALOL HCL 5 MG/ML 4ML SYRINGE IV ONE (17:52)
[2021-01-03 17:58] LABS: Red Cell Distribution Width 22.4 % (11.8-14.3)
[2021-01-03 18:00] LABS: Basophils % (manual) 0 (0.0-2.0); Blast Cells 0; Promyelocytes % 0; Reactive Lymphocytes 0
[2021-01-03 18:26] LABS: INR 1.24 (0.9-1.15)
[2021-01-03 18:50] LABS: Band Neutrophils % (manual) 4; Eosinophils % (manual) 2 (0-7); Lymphocytes % (manual) 8 (10.0-50.0); Metamyelocytes % 1; Monocytes % (manual) 4 (0-12); Myelocytes % 3
[2021-01-03] MEDS ORDERED: TPN PER PHARMACY IV NR ×8 (20:00)
[2021-01-04] VITALS (62 sets, daily range): BP systolic 102–158; BP diastolic 45–89
[2021-01-04] MEDS: ACCU-CHEK COMFORT CURVE STRIP VI SCH ×4 (00:16→19:30)
[2021-01-04] MEDS: LORazepam 2MG/ML-1ML VIAL IV PRN ×3 (03:00→17:18)
[2021-01-04] MEDS: MORPHINE SULFATE INJECTION 2 MG/ML SYRG IV PRN ×4 (04:48→23:01)
[2021-01-04] MEDS: cefTAZidime 1 GM in SODIUM CHL 0.9% 50 ML IV SCH ×3 (04:51→21:24)
[2021-01-04] MEDS: InsuLIN REG 1unit/0.01ml Soln (100units/ml) SC SCH ×4 (06:00→18:00)
[2021-01-04] MEDS: ALBUTEROL SULF 2.5 MG/0.5ML(0.5%) NEB SOLN NEB SCH ×2 (06:24→12:24)
[2021-01-04] MEDS: IPRATROPIUM BROM 0.5 MG/2.5ML INH SOL NEB SCH ×2 (06:24→12:23)
[2021-01-04] MEDS: LABETALOL HCL 5 MG/ML 4ML SYRINGE IV PRN (07:29)
[2021-01-04 08:45] LABS: Basophils # (auto) 0 10 ^3/uL (0-0.2); Eosinophils # (auto) 0 10 ^3/uL (0-0.8); Hemoglobin 9.2 g/dL (13.5-17.5)
[2021-01-04 08:46] LABS: Basophils % (auto) 0.3 % (0.0-2.0); Hematocrit 28.2 % (41.0-53.0); Lymphocytes # (auto) 0.4 10 ^3/uL (0.4-5.4); Lymphocytes % (auto) 8.4 % (10.0-50.0); Mean Corpuscular Hemoglobin 26.1 pg (28.0-32.0); Mean Corpuscular Hgb Conc. 32.6 g/dL (32.0-36.0); Mean Corpuscular Volume 80.3 fL (80.0-100.0); Monocytes # (auto) 0.5 10 ^3/uL (0-1.3); Monocytes % (auto) 9.3 % (0.0-12.0); Neutrophils # (auto) 4.1 10 ^3/uL (1.6-8.6); Nucleated Red Blood Cells % 0.4 %; Red Blood Cells 3.52 10^6/uL (4.5-5.90)
[2021-01-04 08:48] LABS: Red Cell Distribution Width 22.3 % (11.8-14.3)
[2021-01-04 09:00] LABS: Alanine Aminotransferase 23 U/L (16-61); Albumin 2.5 g/dL (3.4-5.0); Anion Gap 5 (5-15); Blood Urea Nitrogen 12 mg/dL (7-18); Calcium 8.2 mg/dL (8.5-10.1); Carbon Dioxide 23 mmol/L (21-32); Chloride 117 mmol/L (98-107); Glucose 114 mg/dL (74-106); Magnesium 2.5 mg/dL (1.6-2.6); Potassium 4.2 mmol/L (3.5-5.1); Sodium 145 mmol/L (136-145)
[2021-01-04 09:05] LABS: Alkaline Phosphatase 145 U/L (45-117); Aspartate Aminotransferase 21 U/L (15-37); Bilirubin, Total 0.8 mg/dL (0.2-1.0); Phosphorus 2.5 mg/dL (2.5-4.90); Pre Albumin 19.8 mg/dL (20.0-40.0); Total Protein 7.4 g/dL (6.4-8.2); Triglycerides 97 mg/dL (< 150)
[2021-01-04 09:26] LABS: GFR African American 920 mL/min; GFR Non-African American 760 mL/min
[2021-01-04] MEDS: PANTOPRAZOLE 40 MG/10 ML VIAL INJ IV SCH ×2 (09:42→21:24)
[2021-01-04] MEDS: MUPIROCIN 2% OINT 15gm or 22gm EACHNOSTRI SCH (09:43)
[2021-01-04] MEDS: VANCOMYCIN 1GM/250ML 250 ML IV SCH (17:19)
[2021-01-04] MEDS: TPN PER PHARMACY IV NR ×8 (20:04)
[2021-01-05] VITALS (86 sets, daily range): BP systolic 102–161; BP diastolic 50–81
[2021-01-05] MEDS: ACCU-CHEK COMFORT CURVE STRIP VI SCH ×4 (00:22→17:25)
[2021-01-05] MEDS: LORazepam 2MG/ML-1ML VIAL IV PRN ×3 (02:30→22:22)
[2021-01-05 04:12] LABS: Hematocrit 22.1 % (41.0-53.0); Red Blood Cells 2.75 10^6/uL (4.5-5.90); White Blood Cell 5.9 10^3/uL (4.4-10.8)
[2021-01-05 04:14] LABS: Hemoglobin 7.3 g/dL (13.5-17.5); Mean Corpuscular Hemoglobin 26.4 pg (28.0-32.0); Mean Corpuscular Hgb Conc. 32.8 g/dL (32.0-36.0); Mean Corpuscular Volume 80.3 fL (80.0-100.0)
[2021-01-05 04:26] LABS: Red Cell Distribution Width 22.7 % (11.8-14.3)
[2021-01-05 04:28] LABS: Calcium 7.4 mg/dL (8.5-10.1); Chloride 114 mmol/L (98-107); Potassium 3.5 mmol/L (3.5-5.1); Sodium 143 mmol/L (136-145)
[2021-01-05 04:34] LABS: Alanine Aminotransferase 22 U/L (16-61); Albumin 2.2 g/dL (3.4-5.0); Alkaline Phosphatase 118 U/L (45-117); Anion Gap 6 (5-15); Aspartate Aminotransferase 18 U/L (15-37); Bilirubin, Total 0.7 mg/dL (0.2-1.0); Blood Urea Nitrogen 14 mg/dL (7-18); Carbon Dioxide 23 mmol/L (21-32); Glucose 81 mg/dL (74-106); Magnesium 2.2 mg/dL (1.6-2.6); Phosphorus 1.6 mg/dL (2.5-4.90); Total Protein 6.5 g/dL (6.4-8.2)
[2021-01-05] MEDS: MORPHINE SULFATE INJECTION 2 MG/ML SYRG IV PRN ×4 (04:34→17:33)
[2021-01-05 04:36] LABS: BUN/Creatinine Ratio 93.3; GFR African American 920 mL/min; GFR Non-African American 760 mL/min
[2021-01-05 05:09] LABS: Band Neutrophils % (manual) 0; Basophils % (manual) 0 (0.0-2.0); Blast Cells 0; Metamyelocytes % 0; Myelocytes % 0; Promyelocytes % 0; Reactive Lymphocytes 0
[2021-01-05 05:11] LABS: Eosinophils % (manual) 1 (0-7); Lymphocytes % (manual) 19 (10.0-50.0); Monocytes % (manual) 13 (0-12)
[2021-01-05] MEDS: InsuLIN REG 1unit/0.01ml Soln (100units/ml) SC SCH ×4 (05:29→17:24)
[2021-01-05] MEDS: cefTAZidime 1 GM in SODIUM CHL 0.9% 50 ML IV SCH ×3 (05:53→21:41)
[2021-01-05] MEDS: ALBUTEROL SULF 2.5 MG/0.5ML(0.5%) NEB SOLN NEB SCH ×5 (06:00→17:54)
[2021-01-05] MEDS: IPRATROPIUM BROM 0.5 MG/2.5ML INH SOL NEB SCH ×5 (06:00→17:54)
[2021-01-05] MEDS ORDERED: POTASSIUM PHOSPHATE 44 MEQ in D5W 5% 250 ML IV ONE (06:45)
[2021-01-05] MEDS ORDERED: FUROSEMIDE 40 MG/4 ML VIAL IV ONE (07:45)
[2021-01-05] MEDS ORDERED: ALBUMIN 25% 100 ML IV ONE (07:45)
[2021-01-05] MEDS: PANTOPRAZOLE 40 MG/10 ML VIAL INJ IV SCH ×2 (09:15→22:21)
[2021-01-05] MEDS: VANCOMYCIN 1GM/250ML 250 ML IV SCH (19:00)
[2021-01-05] MEDS ORDERED: TPN PER PHARMACY IV NR ×9 (20:00)
[2021-01-05] MEDS: TPN PER PHARMACY IV NR ×8 (21:00)
[2021-01-06] VITALS (85 sets, daily range): BP systolic 95–183; BP diastolic 54–106
[2021-01-06] MEDS: IPRATROPIUM BROM 0.5 MG/2.5ML INH SOL NEB SCH ×4 (00:58→18:38)
[2021-01-06] MEDS: ALBUTEROL SULF 2.5 MG/0.5ML(0.5%) NEB SOLN NEB SCH ×4 (00:58→18:38)
[2021-01-06] MEDS: MORPHINE SULFATE INJECTION 2 MG/ML SYRG IV PRN ×6 (01:18→21:39)
[2021-01-06 04:21] LABS: Hemoglobin 7.9 g/dL (13.5-17.5); White Blood Cell 5.5 10^3/uL (4.4-10.8)
[2021-01-06 04:24] LABS: Hematocrit 24.4 % (41.0-53.0); Mean Corpuscular Hemoglobin 26.2 pg (28.0-32.0); Mean Corpuscular Hgb Conc. 32.5 g/dL (32.0-36.0); Mean Corpuscular Volume 80.6 fL (80.0-100.0); Red Blood Cells 3.03 10^6/uL (4.5-5.90)
[2021-01-06 04:39] LABS: Red Cell Distribution Width 23.3 % (11.8-14.3)
[2021-01-06 04:41] LABS: Basophils % (manual) 0 (0.0-2.0); Blast Cells 0; Promyelocytes % 0; Reactive Lymphocytes 0
[2021-01-06 04:42] LABS: Albumin 2.6 g/dL (3.4-5.0); Anion Gap 7 (5-15); Blood Urea Nitrogen 19 mg/dL (7-18); Calcium 8.2 mg/dL (8.5-10.1); Carbon Dioxide 24 mmol/L (21-32); Chloride 109 mmol/L (98-107); Glucose 122 mg/dL (74-106); Magnesium 2.1 mg/dL (1.6-2.6); Potassium 4.2 mmol/L (3.5-5.1); Sodium 140 mmol/L (136-145)
[2021-01-06 04:47] LABS: Alanine Aminotransferase 19 U/L (16-61); Alkaline Phosphatase 107 U/L (45-117); Aspartate Aminotransferase 14 U/L (15-37); Bilirubin, Total 0.7 mg/dL (0.2-1.0); Phosphorus 3.4 mg/dL (2.5-4.90); Total Protein 6.8 g/dL (6.4-8.2)
[2021-01-06 04:49] LABS: BUN/Creatinine Ratio 126.7; GFR African American 920 mL/min; GFR Non-African American 760 mL/min
[2021-01-06 05:05] LABS: Band Neutrophils % (manual) 11; Eosinophils % (manual) 1 (0-7); Lymphocytes % (manual) 24 (10.0-50.0); Metamyelocytes % 3; Monocytes % (manual) 4 (0-12); Myelocytes % 1
[2021-01-06] MEDS: ACCU-CHEK COMFORT CURVE STRIP VI SCH ×4 (06:00→18:34)
[2021-01-06] MEDS: cefTAZidime 1 GM in SODIUM CHL 0.9% 50 ML IV SCH ×3 (06:00→21:37)
[2021-01-06] MEDS: InsuLIN REG 1unit/0.01ml Soln (100units/ml) SC SCH ×4 (06:00→18:40)
[2021-01-06] MEDS: PANTOPRAZOLE 40 MG/10 ML VIAL INJ IV SCH ×2 (10:20→21:37)
[2021-01-06] MEDS: LORazepam 2MG/ML-1ML VIAL IV PRN (10:20)
[2021-01-06] MEDS ORDERED: LORazepam 2MG/ML-1ML VIAL IV ONE (15:00)
[2021-01-06] MEDS ORDERED: [UNRECOGNIZED DRUG - OTHER] IV NR ×9 (20:00)
[2021-01-06] MEDS ORDERED: POTASSIUM PHOSPHATE IV NR ×9 (20:00)
[2021-01-06] MEDS ORDERED: FAT EMULSION IV NR ×9 (20:00)
[2021-01-06] MEDS ORDERED: POTASSIUM ACETATE IV NR ×9 (20:00)
[2021-01-06] MEDS: VANCOMYCIN 1GM/250ML 250 ML IV SCH (20:12)
[2021-01-06] MEDS: LABETALOL HCL 5 MG/ML 4ML SYRINGE IV PRN (21:38)
[2021-01-07] VITALS (39 sets, daily range): BP systolic 111–167; BP diastolic 60–92
[2021-01-07] MEDS: ACCU-CHEK COMFORT CURVE STRIP VI SCH ×4 (00:22→17:24)
[2021-01-07] MEDS: InsuLIN REG 1unit/0.01ml Soln (100units/ml) SC SCH ×5 (00:22→23:53)
[2021-01-07] MEDS: IPRATROPIUM BROM 0.5 MG/2.5ML INH SOL NEB SCH ×5 (01:20→23:54)
[2021-01-07] MEDS: ALBUTEROL SULF 2.5 MG/0.5ML(0.5%) NEB SOLN NEB SCH ×5 (01:20→23:54)
[2021-01-07 04:21] LABS: Chloride 108 mmol/L (98-107); Potassium 3.6 mmol/L (3.5-5.1); Sodium 140 mmol/L (136-145)
[2021-01-07 04:30] LABS: Alanine Aminotransferase 20 U/L (16-61); Albumin 2.5 g/dL (3.4-5.0); Alkaline Phosphatase 110 U/L (45-117); Anion Gap 7 (5-15); Aspartate Aminotransferase 15 U/L (15-37); BUN/Creatinine Ratio 153.3; Bilirubin, Total 0.7 mg/dL (0.2-1.0); Blood Urea Nitrogen 23 mg/dL (7-18); Calcium 8.3 mg/dL (8.5-10.1); Carbon Dioxide 25 mmol/L (21-32); GFR African American 920 mL/min; GFR Non-African American 760 mL/min; Glucose 147 mg/dL (74-106); Magnesium 2.1 mg/dL (1.6-2.6); Phosphorus 1.5 mg/dL (2.5-4.90); Total Protein 6.8 g/dL (6.4-8.2)
[2021-01-07] MEDS: cefTAZidime 1 GM in SODIUM CHL 0.9% 50 ML IV SCH ×3 (06:03→21:06)
[2021-01-07] MEDS: MORPHINE SULFATE INJECTION 2 MG/ML SYRG IV PRN ×4 (07:43→21:47)
[2021-01-07] MEDS: PANTOPRAZOLE 40 MG/10 ML VIAL INJ IV SCH ×2 (09:40→21:06)
[2021-01-07] MEDS: LORazepam 2MG/ML-1ML VIAL IV PRN ×3 (09:45→23:20)
[2021-01-07] MEDS ORDERED: POTASSIUM PHOSPHATE 44 MEQ in D5W 5% 250 ML IV ONE ×2 (10:45→18:00)
[2021-01-07] MEDS ORDERED: diphenhdrAMINE HCL 12.5 MG/5 ML UD PEG PRN (19:00)
[2021-01-07] MEDS ORDERED: TPN PER PHARMACY IV NR ×9 (20:00)
[2021-01-07] MEDS: VANCOMYCIN 1GM/250ML 250 ML IV SCH (20:06)
[2021-01-07] MEDS: ONDANSETRON HCL 4 MG/2 ML VIAL IV PRN ×2 (21:48→22:25)
[2021-01-08] VITALS (29 sets, daily range): BP systolic 112–150; BP diastolic 57–88
[2021-01-08 04:53] LABS: Albumin 2.4 g/dL (3.4-5.0); Anion Gap 5 (5-15); Blood Urea Nitrogen 23 mg/dL (7-18); Carbon Dioxide 25 mmol/L (21-32); Chloride 108 mmol/L (98-107); Glucose 134 mg/dL (74-106); Magnesium 2.4 mg/dL (1.6-2.6); Sodium 138 mmol/L (136-145)
[2021-01-08 04:56] LABS: Alanine Aminotransferase 25 U/L (16-61); Alkaline Phosphatase 113 U/L (45-117); Aspartate Aminotransferase 25 U/L (15-37); BUN/Creatinine Ratio 153.3; Bilirubin, Total 0.7 mg/dL (0.2-1.0); GFR African American 920 mL/min; GFR Non-African American 760 mL/min; Phosphorus 2.6 mg/dL (2.5-4.90); Total Protein 6.8 g/dL (6.4-8.2)
[2021-01-08] MEDS: cefTAZidime 1 GM in SODIUM CHL 0.9% 50 ML IV SCH ×2 (05:18→13:53)
[2021-01-08] MEDS: ACCU-CHEK COMFORT CURVE STRIP VI SCH ×3 (05:18→11:53)
[2021-01-08] MEDS: InsuLIN REG 1unit/0.01ml Soln (100units/ml) SC SCH ×2 (05:18→11:53)
[2021-01-08] MEDS: MORPHINE SULFATE INJECTION 2 MG/ML SYRG IV PRN ×4 (05:19→16:40)
[2021-01-08] MEDS: ONDANSETRON HCL 4 MG/2 ML VIAL IV PRN (05:20)
[2021-01-08] MEDS: LORazepam 2MG/ML-1ML VIAL IV PRN ×3 (06:10→18:30)
[2021-01-08] MEDS: IPRATROPIUM BROM 0.5 MG/2.5ML INH SOL NEB SCH ×3 (06:44→18:40)
[2021-01-08] MEDS: ALBUTEROL SULF 2.5 MG/0.5ML(0.5%) NEB SOLN NEB SCH ×3 (06:44→18:40)
[2021-01-08] MEDS: PANTOPRAZOLE 40 MG/10 ML VIAL INJ IV SCH (09:31)
== END 2021-01-08 19:00 | disposition home health service (06) | DRG 870 ==
LOC: EDBD 15:34 → ER 15:34 → TELE 19:52 → ER 21:14 → TELE-CENTR 21:14 → ICU WEST 01-03 16:49
PROVIDERS: ADMIT Internal Medicine; ATTEND Internal Medicine
PROC: 5A1955Z Respiratory Ventilation, Greater than 96 Consecutive Hours (ICD-10-PCS; principal; 2020-12-29)
PROC: 30233N1 Transfusion of Nonautologous Red Blood Cells into Peripheral Vein, Percutaneous Approach (ICD-10-PCS; 2021-01-03)
PROC: 0W9F30Z Drainage of Abdominal Wall with Drainage Device, Percutaneous Approach (ICD-10-PCS; 2021-01-03)
PROC: 0B21XFZ Change Tracheostomy Device in Trachea, External Approach (ICD-10-PCS; 2021-01-03)
DX: A41.9 Sepsis, unspecified organism (principal); J15.212 Pneumonia due to Methicillin resistant Staphylococcus aureus; E43 Unspecified severe protein-calorie malnutrition; G82.50 Quadriplegia, unspecified; S42.421A Displaced comminuted supracondylar fracture without intercondylar fracture of right humerus, initial encounter for closed fracture; J95.851 Ventilator associated pneumonia; Z99.11 Dependence on respirator [ventilator] status; J44.0 Chronic obstructive pulmonary disease with (acute) lower respiratory infection; K80.00 Calculus of gallbladder with acute cholecystitis without obstruction; J96.10 Chronic respiratory failure, unspecified whether with hypoxia or hypercapnia; Z20.822 Contact with and (suspected) exposure to COVID-19; Z66 Do not resuscitate; G71.00 Muscular dystrophy, unspecified; D69.6 Thrombocytopenia, unspecified; D63.8 Anemia in other chronic diseases classified elsewhere; K21.9 Gastro-esophageal reflux disease without esophagitis; F41.9 Anxiety disorder, unspecified; G47.00 Insomnia, unspecified; I51.7 Cardiomegaly; M41.84 Other forms of scoliosis, thoracic region; I49.3 Ventricular premature depolarization; G89.4 Chronic pain syndrome; X58.XXXA Exposure to other specified factors, initial encounter; R54 Age-related physical debility; Y84.8 Other medical procedures as the cause of abnormal reaction of the patient, or of later complication, without mention of misadventure at the time of the procedure; Z88.1 Allergy status to other antibiotic agents; Z88.2 Allergy status to sulfonamides; Z93.1 Gastrostomy status; Z93.0 Tracheostomy status; Z88.8 Allergy status to other drugs, medicaments and biological substances; Z68.30 Body mass index [BMI] 30.0-30.9, adult; Z87.440 Personal history of urinary (tract) infections; Z87.01 Personal history of pneumonia (recurrent); Z74.01 Bed confinement status; Z83.3 Family history of diabetes mellitus; Y93.89 Activity, other specified; Y92.89 Other specified places as the place of occurrence of the external cause; Y99.8 Other external cause status; Z79.899 Other long term (current) drug therapy
CPT/HCPCS: 36415; 36600; 71045; 73070; 73080; 74176; 80053; 80202; 81001; 82040; 82150; 82805; 82962; 83605; 83690; 83735; 83880; 84100; 84443; 84478; 85007; 85025; 85027; 85610; 85730; 86850; 86900; 86901; 86920; 87040; 87070; 87077; 87081; 87086; 87186; 87205; 87426; 93005; 93306; 94002; 94003; 94640; 96361; 96365; 96367; A4565; A4605; C9113; G0378; J0696; J1100; J1335; J1815; J2185; J2250; J2405; J3480; J3490; J7060; P9047

== ENCOUNTER 2021-01-13 13:34 | Inpatient (IN) | payer MEDICARE, MEDICAID ==
[~2021-01-13] VITALS: Ht 177.8 cm; Wt 79.9 kg
[2021-01-13] MEDS ORDERED: methylPREDNISolone SOD SUCC 125 MG/2 ML VL IV ONE (14:00)
[2021-01-13 15:26] LABS: Basophils # (auto) 0 10 ^3/uL (0-0.2); Eosinophils # (auto) 0 10 ^3/uL (0-0.8); Hemoglobin 7.7 g/dL (13.5-17.5); Lymphocytes # (auto) 0.2 10 ^3/uL (0.4-5.4); Monocytes # (auto) 0.2 10 ^3/uL (0-1.3); White Blood Cell 4.3 10^3/uL (4.4-10.8)
[2021-01-13 15:27] LABS: Basophils % (auto) 0.3 % (0.0-2.0); Eosinophils % (auto) 0.1 % (0.0-7.0); Lymphocytes % (auto) 4.8 % (10.0-50.0); Mean Corpuscular Hgb Conc. 33.4 g/dL (32.0-36.0); Mean Corpuscular Volume 77.9 fL (80.0-100.0); Monocytes % (auto) 4.8 % (0.0-12.0); Neutrophils # (auto) 3.8 10 ^3/uL (1.6-8.6); Nucleated Red Blood Cells % 0.3 %; Platelet Count (auto) 70 10^3/uL (140-450); Red Blood Cells 2.95 10^6/uL (4.5-5.90)
[2021-01-13 15:31] LABS: Alanine Aminotransferase 92 U/L (16-61); Albumin 2.2 g/dL (3.4-5.0); Anion Gap 8 (5-15); BUN/Creatinine Ratio 68.8; Blood Urea Nitrogen 11 mg/dL (7-18); Carbon Dioxide 27 mmol/L (21-32); Chloride 98 mmol/L (98-107); GFR African American 854 mL/min; GFR Non-African American 706 mL/min; Glucose 73 mg/dL (74-106); Magnesium 1.4 mg/dL (1.6-2.6); Potassium 3.2 mmol/L (3.5-5.1); Sodium 133 mmol/L (136-145)
[2021-01-13 15:35] LABS: Red Cell Distribution Width 21.5 % (11.8-14.3)
[2021-01-13 15:37] LABS: Lactic Acid w/Reflex 2.3 mmol/L (0.4-2.0)
[2021-01-13 15:44] LABS: Alkaline Phosphatase 322 U/L (45-117); Aspartate Aminotransferase 153 U/L (15-37); Bilirubin, Total 1.4 mg/dL (0.2-1.0); Total Protein 6.7 g/dL (6.4-8.2)
[2021-01-13] MEDS ORDERED: cefTRIAXone 1GM/50ML D5W 50 ML IV ONE (15:45)
[2021-01-13] MEDS ORDERED: LORazepam 2MG/ML-1ML VIAL IV ONE (16:00)
[2021-01-13] MEDS ORDERED: ACETAMINOPHEN 650 MG RECT SUPP PR ONE (16:15)
[2021-01-13 16:40] VITALS: BP 146/57
[2021-01-13] MEDS ORDERED: ACETAMINOPHEN 325 MG TAB PO ONE (17:15)
[2021-01-13] MEDS ORDERED: VANCOMYCIN PER PHARMACY 0 MG IV SCH (17:15)
[2021-01-13] MEDS ORDERED: NITROGLYCERIN 0.4 MG SL TAB SL PRN (17:15)
[2021-01-13] MEDS: SOD CHL 0.45% WITH 20MEQ KCL 1,000 ML IV SCH (17:49)
[2021-01-13] MEDS ORDERED: ONDANSETRON HCL 4 MG/2 ML VIAL ONE (18:36)
[2021-01-13] MEDS ORDERED: ACETAMINOPHEN 325 MG RECT SUPP PR ONE (18:45)
[2021-01-13 18:57] VITALS: BP 101/51
[2021-01-13] MEDS: ALBUTEROL SULF 2.5 MG/0.5ML(0.5%) NEB SOLN NEB SCH (18:57)
[2021-01-13] MEDS: IPRATROPIUM BROM 0.5 MG/2.5ML INH SOL NEB SCH (18:57)
[2021-01-13] MEDS: ONDANSETRON HCL 4 MG/2 ML VIAL IV PRN (19:27)
[2021-01-13] MEDS ORDERED: ENOXAPARIN SOD 40 MG/0.4 ML SYRINGE SC SCH (20:00)
[2021-01-13 20:15] VITALS: BP_SYST 101; BP_SYST 90; BP_DIAS 43; BP_DIAS 51
[2021-01-13] MEDS: LORazepam 2MG/ML-1ML VIAL IV PRN (20:45)
[2021-01-13] MEDS: VANCOMYCIN 1GM/250ML 250 ML IV SCH (21:16)
[2021-01-13 21:29] VITALS: BP 106/49
[2021-01-13] MEDS: MEROPENEM 1GM IVPB 100 ML IV SCH (23:14)
[2021-01-14] VITALS (28 sets, daily range): BP systolic 95–136; BP diastolic 48–78
[2021-01-14] MEDS: ALBUTEROL SULF 2.5 MG/0.5ML(0.5%) NEB SOLN NEB SCH ×4 (00:26→19:15)
[2021-01-14] MEDS: IPRATROPIUM BROM 0.5 MG/2.5ML INH SOL NEB SCH ×4 (00:26→19:15)
[2021-01-14] MEDS: MORPHINE SULF INJ 2 MG/ML SYRINGE 1ML IV PRN ×5 (02:51→22:22)
[2021-01-14] MEDS: ONDANSETRON HCL 4 MG/2 ML VIAL IV PRN (02:52)
[2021-01-14] MEDS: SOD CHL 0.45% WITH 20MEQ KCL 1,000 ML IV SCH ×2 (03:58→13:04)
[2021-01-14 07:06] LABS: Basophils # (auto) 0 10 ^3/uL (0-0.2); Basophils % (auto) 0.4 % (0.0-2.0); Eosinophils # (auto) 0 10 ^3/uL (0-0.8); Hemoglobin 7.7 g/dL (13.5-17.5); Lymphocytes # (auto) 0.7 10 ^3/uL (0.4-5.4); Monocytes # (auto) 0.2 10 ^3/uL (0-1.3); Nucleated Red Blood Cells % 0.4 %
[2021-01-14 07:08] LABS: Hematocrit 23.2 % (41.0-53.0); Mean Corpuscular Hemoglobin 25.7 pg (28.0-32.0); Monocytes % (auto) 5.2 % (0.0-12.0); Neutrophils # (auto) 2.2 10 ^3/uL (1.6-8.6); Neutrophils % (auto) 71.4 % (37.0-80.0); Platelet Count (auto) 59 10^3/uL (140-450); Red Blood Cells 2.98 10^6/uL (4.5-5.90); Red Cell Distribution Width 21.7 % (11.8-14.3); White Blood Cell 3.1 10^3/uL (4.4-10.8)
[2021-01-14 07:15] LABS: Albumin 2.2 g/dL (3.4-5.0); Anion Gap 8 (5-15); Blood Urea Nitrogen 13 mg/dL (7-18); Calcium 8.6 mg/dL (8.5-10.1); Carbon Dioxide 27 mmol/L (21-32); Chloride 102 mmol/L (98-107); Glucose 83 mg/dL (74-106); Sodium 137 mmol/L (136-145)
[2021-01-14 07:18] LABS: Alanine Aminotransferase 86 U/L (16-61); Alkaline Phosphatase 301 U/L (45-117); Aspartate Aminotransferase 104 U/L (15-37); Bilirubin, Total 1.1 mg/dL (0.2-1.0); Total Protein 6.7 g/dL (6.4-8.2)
[2021-01-14 07:38] LABS: BUN/Creatinine Ratio 86.7; GFR African American 920 mL/min; GFR Non-African American 760 mL/min
[2021-01-14] MEDS: MEROPENEM 1GM IVPB 100 ML IV SCH ×3 (08:02→21:59)
[2021-01-14] MEDS: PANTOPRAZOLE 40 MG/10 ML VIAL INJ IV SCH (09:31)
[2021-01-14] MEDS ORDERED: ENOXAPARIN SOD 30 MG/0.3 ML SYRINGE SC SCH (10:00)
[2021-01-14 10:32] LABS: Urine Bacteria NONE SEEN /hpf (None Seen); Urine Blood Negative /uL (Negative); Urine Specific Gravity 1.005 (1.001-1.035); Urine WBC 5 /hpf (0 - 3)
[2021-01-14] MEDS: VANCOMYCIN 1GM/250ML 250 ML IV SCH (18:54)
[2021-01-15] VITALS (34 sets, daily range): BP systolic 95–154; BP diastolic 49–77
[2021-01-15] MEDS: ALBUTEROL SULF 2.5 MG/0.5ML(0.5%) NEB SOLN NEB SCH ×4 (00:23→18:28)
[2021-01-15] MEDS: IPRATROPIUM BROM 0.5 MG/2.5ML INH SOL NEB SCH ×4 (00:23→18:28)
[2021-01-15] MEDS: SOD CHL 0.45% WITH 20MEQ KCL 1,000 ML IV SCH (00:51)
[2021-01-15] MEDS: LORazepam 2MG/ML-1ML VIAL IV PRN ×3 (00:52→23:07)
[2021-01-15 01:31] LABS: Eosinophils # (auto) 0 10 ^3/uL (0-0.8); Hematocrit 21.1 % (41.0-53.0); Lymphocytes # (auto) 0.9 10 ^3/uL (0.4-5.4); Mean Corpuscular Hemoglobin 25.5 pg (28.0-32.0); Neutrophils # (auto) 4.2 10 ^3/uL (1.6-8.6); Nucleated Red Blood Cells % 0.2 %; Platelet Count (auto) 90 10^3/uL (140-450); Red Blood Cells 2.67 10^6/uL (4.5-5.90)
[2021-01-15 01:35] LABS: Basophils # (auto) 0.1 10 ^3/uL (0-0.2); Eosinophils % (auto) 0.1 % (0.0-7.0); Lymphocytes % (auto) 17.2 % (10.0-50.0); Mean Corpuscular Hgb Conc. 32.2 g/dL (32.0-36.0); Mean Corpuscular Volume 79.2 fL (80.0-100.0); Monocytes # (auto) 0.2 10 ^3/uL (0-1.3); Monocytes % (auto) 4.3 % (0.0-12.0); Neutrophils % (auto) 77.4 % (37.0-80.0); White Blood Cell 5.4 10^3/uL (4.4-10.8)
[2021-01-15 01:37] LABS: Hemoglobin 6.8 g/dL (13.5-17.5)
[2021-01-15 01:43] LABS: Anion Gap 9 (5-15); Blood Urea Nitrogen 16 mg/dL (7-18); Calcium 7.9 mg/dL (8.5-10.1); Carbon Dioxide 24 mmol/L (21-32); Chloride 105 mmol/L (98-107); Glucose 62 mg/dL (74-106); Potassium 4.5 mmol/L (3.5-5.1); Sodium 138 mmol/L (136-145)
[2021-01-15 01:46] LABS: BUN/Creatinine Ratio 106.7; GFR African American 920 mL/min; GFR Non-African American 760 mL/min
[2021-01-15] MEDS: HYDROmorphone HCL 2 MG/ML VL IV PRN ×5 (03:05→21:12)
[2021-01-15 05:07] LABS: Hemoglobin 7.4 g/dL (13.5-17.5); Platelet Count (auto) 92 10^3/uL (140-450)
[2021-01-15 05:08] LABS: Hematocrit 22.3 % (41.0-53.0); Mean Corpuscular Hemoglobin 26.1 pg (28.0-32.0); Mean Corpuscular Hgb Conc. 33.1 g/dL (32.0-36.0); Mean Corpuscular Volume 78.8 fL (80.0-100.0); Red Blood Cells 2.83 10^6/uL (4.5-5.90); White Blood Cell 4.9 10^3/uL (4.4-10.8)
[2021-01-15 05:24] LABS: Albumin 2.2 g/dL (3.4-5.0); Anion Gap 11 (5-15); Blood Urea Nitrogen 18 mg/dL (7-18); Carbon Dioxide 21 mmol/L (21-32); Chloride 105 mmol/L (98-107); Glucose 61 mg/dL (74-106); Magnesium 1.9 mg/dL (1.6-2.6); Potassium 4.8 mmol/L (3.5-5.1); Sodium 137 mmol/L (136-145)
[2021-01-15 05:28] LABS: Alanine Aminotransferase 65 U/L (16-61); Alkaline Phosphatase 283 U/L (45-117); Aspartate Aminotransferase 54 U/L (15-37); Total Protein 6.4 g/dL (6.4-8.2)
[2021-01-15 05:31] LABS: GFR African American 920 mL/min; GFR Non-African American 760 mL/min
[2021-01-15 05:55] LABS: Red Cell Distribution Width 21.8 % (11.8-14.3)
[2021-01-15 05:57] LABS: Basophils % (manual) 0 (0.0-2.0); Blast Cells 0; Eosinophils % (manual) 0 (0-7); Metamyelocytes % 0; Myelocytes % 0; Promyelocytes % 0; Reactive Lymphocytes 0
[2021-01-15] MEDS: MEROPENEM 1GM IVPB 100 ML IV SCH (06:12)
[2021-01-15 08:28] LABS: Band Neutrophils % (manual) 6; Lymphocytes % (manual) 19 (10.0-50.0); Monocytes % (manual) 5 (0-12)
[2021-01-15] MEDS: MORPHINE SULF INJ 2 MG/ML SYRINGE 1ML IV PRN ×3 (10:01→18:52)
[2021-01-15] MEDS: MICAFUNGIN SODIUM 100 MG in SODIUM CHL 0.9% 100 ML IV SCH (10:09)
[2021-01-15] MEDS: PANTOPRAZOLE 40 MG/10 ML VIAL INJ IV SCH (10:23)
[2021-01-15] MEDS ORDERED: VANCOMYCIN PER PHARMACY 0 MG IV SCH (11:00)
[2021-01-15] MEDS ORDERED: IOHEXOL 350 MG/ML 100ML IJ ONE (14:42)
[2021-01-15] MEDS: VANCOMYCIN 1GM/250ML 250 ML IV SCH (18:44)
[2021-01-15] MEDS ORDERED: [UNRECOGNIZED DRUG - OTHER] IV NR ×9 (20:00)
[2021-01-15] MEDS ORDERED: FAT EMULSION IV NR ×9 (20:00)
[2021-01-15] MEDS ORDERED: SODIUM CHLORIDE IV NR ×9 (20:00)
[2021-01-15] MEDS ORDERED: SODIUM PHOSPHATES IV NR ×9 (20:00)
[2021-01-16] VITALS (25 sets, daily range): BP systolic 102–142; BP diastolic 53–91
[2021-01-16] MEDS: ALBUTEROL SULF 2.5 MG/0.5ML(0.5%) NEB SOLN NEB SCH ×5 (00:28→23:53)
[2021-01-16] MEDS: IPRATROPIUM BROM 0.5 MG/2.5ML INH SOL NEB SCH ×5 (00:29→23:53)
[2021-01-16] MEDS: MORPHINE SULF INJ 2 MG/ML SYRINGE 1ML IV PRN ×4 (04:02→21:42)
[2021-01-16 05:38] LABS: Hemoglobin 8.8 g/dL (13.5-17.5); White Blood Cell 5.8 10^3/uL (4.4-10.8)
[2021-01-16 05:41] LABS: Hematocrit 26.5 % (41.0-53.0); Mean Corpuscular Hgb Conc. 33.4 g/dL (32.0-36.0); Platelet Count (auto) 127 10^3/uL (140-450); Red Blood Cells 3.39 10^6/uL (4.5-5.90)
[2021-01-16 05:54] LABS: Albumin 2.3 g/dL (3.4-5.0); Anion Gap 14 (5-15); Blood Urea Nitrogen 13 mg/dL (7-18); Calcium 8.1 mg/dL (8.5-10.1); Carbon Dioxide 19 mmol/L (21-32); Chloride 103 mmol/L (98-107); Magnesium 1.8 mg/dL (1.6-2.6); Potassium 4.6 mmol/L (3.5-5.1); Sodium 136 mmol/L (136-145)
[2021-01-16 05:58] LABS: Alanine Aminotransferase 60 U/L (16-61); Alkaline Phosphatase 320 U/L (45-117); Aspartate Aminotransferase 45 U/L (15-37); Phosphorus 2.3 mg/dL (2.5-4.90); Total Protein 6.8 g/dL (6.4-8.2)
[2021-01-16 05:59] LABS: BUN/Creatinine Ratio 86.7; GFR African American 920 mL/min; GFR Non-African American 760 mL/min
[2021-01-16 06:00] LABS: Red Cell Distribution Width 22.3 % (11.8-14.3)
[2021-01-16 06:01] LABS: Basophils % (manual) 0 (0.0-2.0); Eosinophils % (manual) 0 (0-7); Glucose 44 mg/dL (74-106)
[2021-01-16 06:03] LABS: Blast Cells 0; Promyelocytes % 0; Reactive Lymphocytes 0
[2021-01-16] MEDS ORDERED: DEXTROSE 50% SYRINGE 50 ML IV ONE (06:42)
[2021-01-16] MEDS: HYDROmorphone HCL 2 MG/ML VL IV PRN ×3 (06:50→18:03)
[2021-01-16 07:09] LABS: Band Neutrophils % (manual) 11; Lymphocytes % (manual) 22 (10.0-50.0); Metamyelocytes % 3; Monocytes % (manual) 4 (0-12); Myelocytes % 2
[2021-01-16] MEDS: PANTOPRAZOLE 40 MG/10 ML VIAL INJ IV SCH (09:27)
[2021-01-16] MEDS: MICAFUNGIN SODIUM 100 MG in SODIUM CHL 0.9% 100 ML IV SCH (09:28)
[2021-01-16] MEDS ORDERED: CLINIMIX PER PHARMACY 0 ML IV SCH (10:30)
[2021-01-16] MEDS: LORazepam 2MG/ML-1ML VIAL IV PRN (10:38)
[2021-01-16 11:05] LABS: Pre Albumin 19.8 mg/dL (20.0-40.0)
[2021-01-16] MEDS ORDERED: SODIUM PHOSPHATES 20 MEQ in SODIUM CHL 0.9% 100 ML IV ONE (11:15)
[2021-01-16] MEDS: VANCOMYCIN 1GM/250ML 250 ML IV SCH (19:17)
[2021-01-16] MEDS ORDERED: AMINO ACID INFUSION IN D10W 1,000 ML IV NR (20:00)
[2021-01-16] MEDS: InsuLIN REG 1unit/0.01ml Soln (100units/ml) SC SCH (23:58)
[2021-01-16] MEDS: ACCU-CHEK COMFORT CURVE STRIP VI SCH (23:58)
[2021-01-17] VITALS (25 sets, daily range): BP systolic 104–159; BP diastolic 58–90
[2021-01-17] MEDS ORDERED: DEXTROSE (50%) 50ML SYRG IV SCH
[2021-01-17] MEDS: LORazepam 2MG/ML-1ML VIAL IV PRN ×3 (00:02→18:35)
[2021-01-17] MEDS: HYDROmorphone HCL 2 MG/ML VL IV PRN ×4 (03:48→21:24)
[2021-01-17 05:50] LABS: Albumin 2.1 g/dL (3.4-5.0); Anion Gap 12 (5-15); Blood Urea Nitrogen 8 mg/dL (7-18); Calcium 7.4 mg/dL (8.5-10.1); Carbon Dioxide 22 mmol/L (21-32); Chloride 105 mmol/L (98-107); Glucose 79 mg/dL (74-106); Magnesium 1.5 mg/dL (1.6-2.6); Potassium 3.1 mmol/L (3.5-5.1); Sodium 139 mmol/L (136-145)
[2021-01-17 05:53] LABS: Alanine Aminotransferase 45 U/L (16-61); Alkaline Phosphatase 288 U/L (45-117); Aspartate Aminotransferase 31 U/L (15-37); BUN/Creatinine Ratio 53.3; Bilirubin, Total 1.1 mg/dL (0.2-1.0); GFR African American 920 mL/min; GFR Non-African American 760 mL/min; Phosphorus 2.5 mg/dL (2.5-4.90)
[2021-01-17] MEDS: InsuLIN REG 1unit/0.01ml Soln (100units/ml) SC SCH ×3 (06:00→18:00)
[2021-01-17] MEDS: ACCU-CHEK COMFORT CURVE STRIP VI SCH ×3 (06:37→18:10)
[2021-01-17] MEDS: MORPHINE SULF INJ 2 MG/ML SYRINGE 1ML IV PRN ×2 (06:41→13:23)
[2021-01-17] MEDS: IPRATROPIUM BROM 0.5 MG/2.5ML INH SOL NEB SCH ×3 (07:19→18:29)
[2021-01-17] MEDS: ALBUTEROL SULF 2.5 MG/0.5ML(0.5%) NEB SOLN NEB SCH ×3 (07:19→18:29)
[2021-01-17] MEDS ORDERED: POTASSIUM EFFERVESENT TAB 25 MEQ PO ONE (08:15)
[2021-01-17] MEDS ORDERED: POTASSIUM CHLORIDE 40 MEQ, LIDOCAINE 1% (LOCAL ANESTH.) 4 ML in SODIUM CHL 0.9% 250 ML IV ONE (08:15)
[2021-01-17] MEDS: MICAFUNGIN SODIUM 100 MG in SODIUM CHL 0.9% 100 ML IV SCH (08:43)
[2021-01-17] MEDS ORDERED: CATHFLO ACTIVASE (ALTEPLASE) 2 MG VIAL IV ONE (09:30)
[2021-01-17] MEDS: PANTOPRAZOLE 40 MG/10 ML VIAL INJ IV SCH (09:51)
[2021-01-17] MEDS: MAGNESIUM SULFATE 1GM/100ML 100 ML IV SCH ×3 (13:20→15:41)
[2021-01-17] MEDS ORDERED: MAGNESIUM SULFATE 1GM/100ML 100 ML IV ONE (14:37)
[2021-01-17] MEDS: VANCOMYCIN 1GM/250ML 250 ML IV SCH (18:35)
[2021-01-17] MEDS: AMINO ACID INFUSION IN D10W 1,000 ML IV NR (20:00)
[2021-01-18] VITALS (14 sets, daily range): BP systolic 111–144; BP diastolic 60–85
[2021-01-18] MEDS: ALBUTEROL SULF 2.5 MG/0.5ML(0.5%) NEB SOLN NEB SCH ×4 (00:37→18:15)
[2021-01-18] MEDS: IPRATROPIUM BROM 0.5 MG/2.5ML INH SOL NEB SCH ×4 (00:37→18:15)
[2021-01-18] MEDS: HYDROmorphone HCL 2 MG/ML VL IV PRN ×4 (04:47→19:07)
[2021-01-18] MEDS: ACCU-CHEK COMFORT CURVE STRIP VI SCH ×5 (05:32→20:21)
[2021-01-18] MEDS: InsuLIN REG 1unit/0.01ml Soln (100units/ml) SC SCH ×5 (05:32→20:45)
[2021-01-18 05:51] LABS: Hemoglobin 8.3 g/dL (13.5-17.5); Mean Corpuscular Volume 77.1 fL (80.0-100.0)
[2021-01-18 05:54] LABS: Hematocrit 24.3 % (41.0-53.0); Mean Corpuscular Hemoglobin 26.2 pg (28.0-32.0); Platelet Count (auto) 133 10^3/uL (140-450); Red Blood Cells 3.15 10^6/uL (4.5-5.90); White Blood Cell 4.6 10^3/uL (4.4-10.8)
[2021-01-18 06:02] LABS: Red Cell Distribution Width 22.5 % (11.8-14.3)
[2021-01-18 06:04] LABS: Basophils % (manual) 0 (0.0-2.0); Blast Cells 0; Metamyelocytes % 0; Promyelocytes % 0; Reactive Lymphocytes 0
[2021-01-18 06:06] LABS: Albumin 2.3 g/dL (3.4-5.0); Anion Gap 9 (5-15); Blood Urea Nitrogen 7 mg/dL (7-18); Calcium 7.7 mg/dL (8.5-10.1); Carbon Dioxide 22 mmol/L (21-32); Chloride 109 mmol/L (98-107); Glucose 92 mg/dL (74-106); Magnesium 2.1 mg/dL (1.6-2.6); Potassium 3.7 mmol/L (3.5-5.1); Sodium 140 mmol/L (136-145)
[2021-01-18 06:09] LABS: Alanine Aminotransferase 40 U/L (16-61); Alkaline Phosphatase 273 U/L (45-117); Aspartate Aminotransferase 26 U/L (15-37); BUN/Creatinine Ratio 46.7; Bilirubin, Total 1.2 mg/dL (0.2-1.0); GFR African American 920 mL/min; GFR Non-African American 760 mL/min; Phosphorus 2.3 mg/dL (2.5-4.90); Total Protein 6.5 g/dL (6.4-8.2)
[2021-01-18 07:42] LABS: Band Neutrophils % (manual) 3; Eosinophils % (manual) 1 (0-7); Lymphocytes % (manual) 10 (10.0-50.0); Monocytes % (manual) 10 (0-12); Myelocytes % 2
[2021-01-18] MEDS: MORPHINE SULF INJ 2 MG/ML SYRINGE 1ML IV PRN ×3 (08:21→20:34)
[2021-01-18] MEDS: AMINO ACID INFUSION IN D10W 1,000 ML IV NR (09:37)
[2021-01-18] MEDS: PANTOPRAZOLE 40 MG/10 ML VIAL INJ IV SCH (09:56)
[2021-01-18] MEDS: MICAFUNGIN SODIUM 100 MG in SODIUM CHL 0.9% 100 ML IV SCH (09:56)
[2021-01-18] MEDS ORDERED: POTASSIUM PHOSPHATE 22 MEQ in SODIUM CHL 0.9% 100 ML IV ONE (11:30)
[2021-01-18] MEDS ORDERED: MORPHINE SULF INJ 2 MG/ML SYRINGE 1ML IV ONE (12:45)
[2021-01-18] MEDS ORDERED: DEXTROSE (50%) 50ML SYRG IV PRN (12:45)
[2021-01-18 13:17] LABS: Cholesterol 133 mg/dL (< 200); HDL Cholesterol 21 mg/dL (40-59); LDL Cholesterol 82 mg/dL (< 100); Triglycerides 244 mg/dL (< 150)
[2021-01-18] MEDS: LORazepam 2MG/ML-1ML VIAL IV PRN ×2 (16:32→23:16)
[2021-01-18] MEDS: VANCOMYCIN 1GM/250ML 250 ML IV SCH (19:06)
[2021-01-18] MEDS ORDERED: CLINIMIX PER PHARMACY IV NR ×5 (20:00)
[2021-01-19] VITALS (17 sets, daily range): BP systolic 125–148; BP diastolic 62–83
[2021-01-19] MEDS: ALBUTEROL SULF 2.5 MG/0.5ML(0.5%) NEB SOLN NEB SCH ×3 (00:13→18:16)
[2021-01-19] MEDS: IPRATROPIUM BROM 0.5 MG/2.5ML INH SOL NEB SCH ×3 (00:13→18:16)
[2021-01-19] MEDS: HYDROmorphone HCL 2 MG/ML VL IV PRN ×4 (01:19→20:38)
[2021-01-19 05:29] LABS: Anion Gap 8 (5-15); Blood Urea Nitrogen 6 mg/dL (7-18); Calcium 6.7 mg/dL (8.5-10.1); Carbon Dioxide 18 mmol/L (21-32); Chloride 115 mmol/L (98-107); Glucose 120 mg/dL (74-106); Magnesium 1.6 mg/dL (1.6-2.6); Potassium 3.2 mmol/L (3.5-5.1); Sodium 141 mmol/L (136-145)
[2021-01-19 05:31] LABS: Alanine Aminotransferase 28 U/L (16-61); Aspartate Aminotransferase 17 U/L (15-37)
[2021-01-19 05:33] LABS: Alkaline Phosphatase 204 U/L (45-117); Bilirubin, Total 0.9 mg/dL (0.2-1.0); GFR African American 920 mL/min; GFR Non-African American 760 mL/min; Phosphorus 2.9 mg/dL (2.5-4.90); Total Protein 5.6 g/dL (6.4-8.2)
[2021-01-19] MEDS: InsuLIN REG 1unit/0.01ml Soln (100units/ml) SC SCH ×4 (05:51→22:00)
[2021-01-19] MEDS: ACCU-CHEK COMFORT CURVE STRIP VI SCH ×4 (05:53→22:10)
[2021-01-19] MEDS: MICAFUNGIN SODIUM 100 MG in SODIUM CHL 0.9% 100 ML IV SCH (09:46)
[2021-01-19] MEDS: PANTOPRAZOLE 40 MG/10 ML VIAL INJ IV SCH (09:46)
[2021-01-19] MEDS ORDERED: POTASSIUM PHOSPHATE 33 MEQ in D5W 5% 250 ML IV ONE (11:00)
[2021-01-19] MEDS: MORPHINE SULF INJ 2 MG/ML SYRINGE 1ML IV PRN ×3 (13:14→22:25)
[2021-01-19] MEDS: MAGNESIUM SULFATE 1GM/100ML 100 ML IV SCH ×2 (13:15→15:30)
[2021-01-19] MEDS: LORazepam 2MG/ML-1ML VIAL IV PRN (18:43)
[2021-01-19] MEDS ORDERED: CLINIMIX PER PHARMACY IV NR ×7 (20:00)
[2021-01-19] MEDS ORDERED: DEXTROSE 10% 1,000 ML IV ONE (21:00)
[2021-01-19] MEDS: VANCOMYCIN 1GM/250ML 250 ML IV SCH (22:52)
[2021-01-20] VITALS (21 sets, daily range): BP systolic 108–141; BP diastolic 64–84
[2021-01-20] MEDS: ALBUTEROL SULF 2.5 MG/0.5ML(0.5%) NEB SOLN NEB SCH ×4 (00:09→19:13)
[2021-01-20] MEDS: IPRATROPIUM BROM 0.5 MG/2.5ML INH SOL NEB SCH ×4 (00:09→19:13)
[2021-01-20] MEDS: HYDROmorphone HCL 2 MG/ML VL IV PRN ×5 (00:56→21:30)
[2021-01-20] MEDS: LORazepam 2MG/ML-1ML VIAL IV PRN ×3 (02:25→23:43)
[2021-01-20] MEDS: MORPHINE SULF INJ 2 MG/ML SYRINGE 1ML IV PRN ×5 (03:42→19:29)
[2021-01-20] MEDS: ACCU-CHEK COMFORT CURVE STRIP VI SCH ×3 (05:56→16:32)
[2021-01-20] MEDS: InsuLIN REG 1unit/0.01ml Soln (100units/ml) SC SCH ×3 (05:56→17:00)
[2021-01-20 06:02] LABS: Albumin 2.5 g/dL (3.4-5.0); Anion Gap 8 (5-15); Blood Urea Nitrogen 6 mg/dL (7-18); Calcium 7.7 mg/dL (8.5-10.1); Carbon Dioxide 19 mmol/L (21-32); Chloride 112 mmol/L (98-107); Glucose 109 mg/dL (74-106); Magnesium 2.6 mg/dL (1.6-2.6); Potassium 4.2 mmol/L (3.5-5.1); Sodium 139 mmol/L (136-145)
[2021-01-20 06:05] LABS: Alanine Aminotransferase 29 U/L (16-61); Alkaline Phosphatase 224 U/L (45-117); Aspartate Aminotransferase 19 U/L (15-37); Bilirubin, Total 0.9 mg/dL (0.2-1.0); GFR African American 920 mL/min; GFR Non-African American 760 mL/min; Phosphorus 4.4 mg/dL (2.5-4.90); Total Protein 6.9 g/dL (6.4-8.2)
[2021-01-20] MEDS ORDERED: AMINO ACID INFUSION IN D10W 1,000 ML IV NR ×3 (08:00→20:00)
[2021-01-20] MEDS: PANTOPRAZOLE 40 MG/10 ML VIAL INJ IV SCH (09:39)
[2021-01-20] MEDS: MICAFUNGIN SODIUM 100 MG in SODIUM CHL 0.9% 100 ML IV SCH (09:39)
[2021-01-20] MEDS ORDERED: VANCOMYCIN 1GM/250ML 250 ML IV SCH (22:00)
[2021-01-21] VITALS (23 sets, daily range): BP systolic 114–148; BP diastolic 68–86
[2021-01-21] MEDS: IPRATROPIUM BROM 0.5 MG/2.5ML INH SOL NEB SCH ×4 (00:39→18:27)
[2021-01-21] MEDS: ALBUTEROL SULF 2.5 MG/0.5ML(0.5%) NEB SOLN NEB SCH ×4 (00:39→18:27)
[2021-01-21] MEDS: MORPHINE SULF INJ 2 MG/ML SYRINGE 1ML IV PRN ×4 (01:48→17:53)
[2021-01-21] MEDS: HYDROmorphone HCL 2 MG/ML VL IV PRN ×4 (04:05→21:22)
[2021-01-21] MEDS: ACCU-CHEK COMFORT CURVE STRIP VI SCH ×4 (05:29→17:08)
[2021-01-21] MEDS: InsuLIN REG 1unit/0.01ml Soln (100units/ml) SC SCH ×4 (05:29→17:08)
[2021-01-21 05:53] LABS: Chloride 112 mmol/L (98-107); Potassium 3.8 mmol/L (3.5-5.1); Sodium 138 mmol/L (136-145)
[2021-01-21 06:01] LABS: Alanine Aminotransferase 26 U/L (16-61); Albumin 2.5 g/dL (3.4-5.0); Alkaline Phosphatase 198 U/L (45-117); Anion Gap 7 (5-15); Aspartate Aminotransferase 19 U/L (15-37); Bilirubin, Total 1.1 mg/dL (0.2-1.0); Blood Urea Nitrogen 7 mg/dL (7-18); Calcium 7.8 mg/dL (8.5-10.1); Carbon Dioxide 19 mmol/L (21-32); Glucose 98 mg/dL (74-106); Magnesium 2.3 mg/dL (1.6-2.6); Phosphorus 2.5 mg/dL (2.5-4.90); Total Protein 6.9 g/dL (6.4-8.2)
[2021-01-21 06:03] LABS: BUN/Creatinine Ratio 46.7; GFR African American 920 mL/min; GFR Non-African American 760 mL/min
[2021-01-21] MEDS: PANTOPRAZOLE 40 MG/10 ML VIAL INJ IV SCH (09:41)
[2021-01-21] MEDS: MICAFUNGIN SODIUM 100 MG in SODIUM CHL 0.9% 100 ML IV SCH (09:41)
[2021-01-21] MEDS: LORazepam 2MG/ML-1ML VIAL IV PRN ×2 (10:28→19:22)
[2021-01-21] MEDS ORDERED: AMINO ACID INFUSION IN D10W 1,000 ML IV NR (20:00)
[2021-01-21 21:42] LABS: GFR African American 920 mL/min; GFR Non-African American 760 mL/min
[2021-01-22] VITALS (24 sets, daily range): BP systolic 108–171; BP diastolic 53–100
[2021-01-22] MEDS: ACCU-CHEK COMFORT CURVE STRIP VI SCH ×4 (00:09→17:40)
[2021-01-22] MEDS: IPRATROPIUM BROM 0.5 MG/2.5ML INH SOL NEB SCH ×4 (00:10→18:54)
[2021-01-22] MEDS: ALBUTEROL SULF 2.5 MG/0.5ML(0.5%) NEB SOLN NEB SCH ×4 (00:10→18:54)
[2021-01-22] MEDS: MORPHINE SULF INJ 2 MG/ML SYRINGE 1ML IV PRN ×4 (00:18→20:54)
[2021-01-22] MEDS: LORazepam 2MG/ML-1ML VIAL IV PRN ×3 (01:59→21:58)
[2021-01-22] MEDS: HYDROmorphone HCL 2 MG/ML VL IV PRN ×5 (04:07→23:41)
[2021-01-22] MEDS: InsuLIN REG 1unit/0.01ml Soln (100units/ml) SC SCH ×4 (06:00→17:41)
[2021-01-22 06:03] LABS: Albumin 2.4 g/dL (3.4-5.0); Anion Gap 5 (5-15); Blood Urea Nitrogen 9 mg/dL (7-18); Calcium 7.9 mg/dL (8.5-10.1); Carbon Dioxide 21 mmol/L (21-32); Chloride 114 mmol/L (98-107); Glucose 96 mg/dL (74-106); Potassium 3.3 mmol/L (3.5-5.1); Sodium 140 mmol/L (136-145)
[2021-01-22 06:08] LABS: Alanine Aminotransferase 24 U/L (16-61); Alkaline Phosphatase 182 U/L (45-117); Aspartate Aminotransferase 21 U/L (15-37); Bilirubin, Total 0.9 mg/dL (0.2-1.0); Phosphorus 2.4 mg/dL (2.5-4.90); Total Protein 6.7 g/dL (6.4-8.2)
[2021-01-22 06:21] LABS: GFR African American 920 mL/min; GFR Non-African American 760 mL/min
[2021-01-22] MEDS: PANTOPRAZOLE 40 MG/10 ML VIAL INJ IV SCH (09:22)
[2021-01-22] MEDS: MICAFUNGIN SODIUM 100 MG in SODIUM CHL 0.9% 100 ML IV SCH (09:22)
[2021-01-22] MEDS ORDERED: POTASSIUM PHOSPHATE 26.4 MEQ in SODIUM CHL 0.9% 100 ML IV ONE (10:00)
[2021-01-22] MEDS ORDERED: AMINO ACID INFUSION IN D10W 1,000 ML IV NR (20:00)
[2021-01-23] VITALS (29 sets, daily range): BP systolic 104–147; BP diastolic 48–74
[2021-01-23] MEDS: IPRATROPIUM BROM 0.5 MG/2.5ML INH SOL NEB SCH ×4 (01:01→18:11)
[2021-01-23] MEDS: ALBUTEROL SULF 2.5 MG/0.5ML(0.5%) NEB SOLN NEB SCH ×4 (01:01→18:11)
[2021-01-23] MEDS: InsuLIN REG 1unit/0.01ml Soln (100units/ml) SC SCH ×4 (06:00→17:44)
[2021-01-23] MEDS: ACCU-CHEK COMFORT CURVE STRIP VI SCH ×4 (06:09→17:44)
[2021-01-23] MEDS: MORPHINE SULF INJ 2 MG/ML SYRINGE 1ML IV PRN ×3 (06:26→14:49)
[2021-01-23] MEDS: HYDROmorphone HCL 2 MG/ML VL IV PRN ×4 (07:20→21:49)
[2021-01-23 08:09] LABS: Chloride 113 mmol/L (98-107); Potassium 3.9 mmol/L (3.5-5.1); Sodium 139 mmol/L (136-145)
[2021-01-23 08:16] LABS: Alanine Aminotransferase 23 U/L (16-61); Albumin 2.6 g/dL (3.4-5.0); Alkaline Phosphatase 175 U/L (45-117); Anion Gap 7 (5-15); Aspartate Aminotransferase 26 U/L (15-37); Bilirubin, Total 0.9 mg/dL (0.2-1.0); Blood Urea Nitrogen 9 mg/dL (7-18); Calcium 8.1 mg/dL (8.5-10.1); Carbon Dioxide 19 mmol/L (21-32); Glucose 94 mg/dL (74-106); Magnesium 1.8 mg/dL (1.6-2.6); Phosphorus 2.8 mg/dL (2.5-4.90)
[2021-01-23 08:24] LABS: GFR African American 920 mL/min; GFR Non-African American 760 mL/min
[2021-01-23] MEDS: MICAFUNGIN SODIUM 100 MG in SODIUM CHL 0.9% 100 ML IV SCH (09:28)
[2021-01-23] MEDS: PANTOPRAZOLE 40 MG/10 ML VIAL INJ IV SCH (09:28)
[2021-01-23] MEDS: LORazepam 2MG/ML-1ML VIAL IV PRN ×2 (10:44→19:52)
[2021-01-23] MEDS ORDERED: Jevity 1.2 Cal/Fiber 1 Liter GT SCH (12:30)
[2021-01-23] MEDS ORDERED: METOCLOPRAMIDE HCL 5MG/ml INJ 2ml VIAL IV SCH (14:00)
[2021-01-23] MEDS ORDERED: METOCLOPRAMIDE HCL 5MG/ml INJ 2ml VIAL IV ONE (14:00)
[2021-01-23] MEDS ORDERED: AMINO ACID INFUSION IN D10W 1,000 ML IV NR (20:00)
[2021-01-24] VITALS (29 sets, daily range): BP systolic 101–145; BP diastolic 53–84
[2021-01-24] MEDS: ALBUTEROL SULF 2.5 MG/0.5ML(0.5%) NEB SOLN NEB SCH ×4 (00:05→18:30)
[2021-01-24] MEDS: IPRATROPIUM BROM 0.5 MG/2.5ML INH SOL NEB SCH ×4 (00:05→18:30)
[2021-01-24] MEDS: MORPHINE SULF INJ 2 MG/ML SYRINGE 1ML IV PRN ×3 (01:03→17:36)
[2021-01-24] MEDS: InsuLIN REG 1unit/0.01ml Soln (100units/ml) SC SCH ×4 (01:10→18:00)
[2021-01-24] MEDS: HYDROmorphone HCL 2 MG/ML VL IV PRN ×2 (01:58→14:40)
[2021-01-24] MEDS: ACCU-CHEK COMFORT CURVE STRIP VI SCH ×4 (06:00→17:36)
[2021-01-24 06:17] LABS: Alanine Aminotransferase 23 U/L (16-61); Albumin 2.6 g/dL (3.4-5.0); Anion Gap 6 (5-15); Aspartate Aminotransferase 27 U/L (15-37); Blood Urea Nitrogen 10 mg/dL (7-18); Calcium 8.2 mg/dL (8.5-10.1); Carbon Dioxide 20 mmol/L (21-32); Chloride 115 mmol/L (98-107); Glucose 81 mg/dL (74-106); Magnesium 1.8 mg/dL (1.6-2.6); Potassium 3.7 mmol/L (3.5-5.1); Sodium 141 mmol/L (136-145)
[2021-01-24 06:23] LABS: Alkaline Phosphatase 172 U/L (45-117); Bilirubin, Total 0.9 mg/dL (0.2-1.0); Phosphorus 2.3 mg/dL (2.5-4.90); Pre Albumin 29.3 mg/dL (20.0-40.0); Triglycerides 269 mg/dL (< 150)
[2021-01-24 06:27] LABS: BUN/Creatinine Ratio 66.7; GFR African American 920 mL/min; GFR Non-African American 760 mL/min
[2021-01-24] MEDS ORDERED: LIDOCAINE 1% HCL (LOCAL ANESTH.) INJ 20ML MDV ONE (07:00)
[2021-01-24] MEDS: LIDOCAINE W/ EPINEPHRINE 1% 20ML VIAL ONE ×2 (07:00→08:31)
[2021-01-24] MEDS ORDERED: ceFAZolin 1GM/50ML 100 ML IV ONE (07:53)
[2021-01-24] MEDS ORDERED: HYDROmorphone HCL 2 MG/ML VL ONE (08:15)
[2021-01-24] MEDS ORDERED: MIDAZOLAM HCL 1MG/1ML-2 ML VIAL ONE ×2 (08:15→08:26)
[2021-01-24] MEDS ORDERED: fentaNYL CITRATE 100 MCG/2 ML VL ONE (08:15)
[2021-01-24] MEDS ORDERED: DexAMETHasone SOD PHOS 10MG/1ML VIAL INJ ONE (08:22)
[2021-01-24] MEDS ORDERED: ePHEDrine SULFATE 50 MG/ML AMP IV PRN (09:00)
[2021-01-24] MEDS ORDERED: ONDANSETRON HCL 4 MG/2 ML VIAL IV PRN (09:00)
[2021-01-24] MEDS ORDERED: MORPHINE SULFATE 4 MG/ML SYR/VIAL IV PRN (09:00)
[2021-01-24] MEDS ORDERED: MIDAZOLAM HCL 1MG/1ML-2 ML VIAL IV PRN (09:00)
[2021-01-24] MEDS ORDERED: LABETALOL HCL 5 MG/ML 4ML SYRINGE IV PRN (09:00)
[2021-01-24] MEDS ORDERED: HYDROmorphone HCL 2 MG/ML VL IV PRN (09:00)
[2021-01-24] MEDS: MICAFUNGIN SODIUM 100 MG in SODIUM CHL 0.9% 100 ML IV SCH (09:49)
[2021-01-24] MEDS: PANTOPRAZOLE 40 MG/10 ML VIAL INJ IV SCH (09:49)
[2021-01-24] MEDS ORDERED: MAGNESIUM SULFATE 1GM/100ML 100 ML IV ONE (11:00)
[2021-01-24] MEDS ORDERED: POTASSIUM PHOSP 22MEQ(15MMOLE) in NS 100 ML IV ONE (12:00)
[2021-01-24] MEDS ORDERED: AMINO ACID INFUSION IN D10W 1,000 ML IV NR (20:00)
[2021-01-24] MEDS: LORazepam 2MG/ML-1ML VIAL IV PRN (20:41)
[2021-01-25] VITALS (26 sets, daily range): BP systolic 102–138; BP diastolic 48–83
[2021-01-25] MEDS: HYDROmorphone HCL 2 MG/ML VL IV PRN ×3 (00:04→20:42)
[2021-01-25] MEDS: ACCU-CHEK COMFORT CURVE STRIP VI SCH ×4 (00:49→17:39)
[2021-01-25] MEDS: IPRATROPIUM BROM 0.5 MG/2.5ML INH SOL NEB SCH ×4 (01:07→18:52)
[2021-01-25] MEDS: ALBUTEROL SULF 2.5 MG/0.5ML(0.5%) NEB SOLN NEB SCH ×4 (01:07→18:52)
[2021-01-25] MEDS: MORPHINE SULF INJ 2 MG/ML SYRINGE 1ML IV PRN ×4 (03:45→18:25)
[2021-01-25] MEDS: InsuLIN REG 1unit/0.01ml Soln (100units/ml) SC SCH ×4 (06:00→17:38)
[2021-01-25 07:16] LABS: Albumin 2.7 g/dL (3.4-5.0); Anion Gap 9 (5-15); Blood Urea Nitrogen 12 mg/dL (7-18); Calcium 8.3 mg/dL (8.5-10.1); Carbon Dioxide 19 mmol/L (21-32); Chloride 112 mmol/L (98-107); Glucose 96 mg/dL (74-106); Magnesium 2.1 mg/dL (1.6-2.6); Sodium 140 mmol/L (136-145)
[2021-01-25 07:20] LABS: Alanine Aminotransferase 23 U/L (16-61); Alkaline Phosphatase 162 U/L (45-117); Aspartate Aminotransferase 20 U/L (15-37); Bilirubin, Total 0.9 mg/dL (0.2-1.0); Phosphorus 2.3 mg/dL (2.5-4.90)
[2021-01-25 07:46] LABS: GFR African American 920 mL/min; GFR Non-African American 760 mL/min
[2021-01-25] MEDS ORDERED: POTASSIUM PHOSPHATE 44 MEQ in D5W 5% 250 ML IV ONE (08:15)
[2021-01-25] MEDS: PANTOPRAZOLE 40 MG/10 ML VIAL INJ IV SCH (09:55)
[2021-01-25] MEDS: MICAFUNGIN SODIUM 100 MG in SODIUM CHL 0.9% 100 ML IV SCH (09:55)
[2021-01-25] MEDS ORDERED: TPN PER PHARMACY 0 ML IV SCH (11:00)
[2021-01-25] MEDS ORDERED: NYSTATIN TOPICAL POWDER 15GM TOP ONE (11:15)
[2021-01-25] MEDS: NYSTATIN TOPICAL POWDER 15GM TOP SCH ×2 (12:42→22:00)
[2021-01-25] MEDS: LORazepam 2MG/ML-1ML VIAL IV PRN (15:42)
[2021-01-25] MEDS ORDERED: PPN PER PHARMACY IV NR ×9 (20:00)
[2021-01-26] VITALS (27 sets, daily range): BP systolic 109–151; BP diastolic 53–77
[2021-01-26] MEDS: IPRATROPIUM BROM 0.5 MG/2.5ML INH SOL NEB SCH ×4 (00:22→18:56)
[2021-01-26] MEDS: ALBUTEROL SULF 2.5 MG/0.5ML(0.5%) NEB SOLN NEB SCH ×4 (00:23→18:56)
[2021-01-26] MEDS: LORazepam 2MG/ML-1ML VIAL IV PRN ×3 (00:30→20:33)
[2021-01-26] MEDS: HYDROmorphone HCL 2 MG/ML VL IV PRN ×4 (02:30→22:15)
[2021-01-26] MEDS: MORPHINE SULF INJ 2 MG/ML SYRINGE 1ML IV PRN ×2 (05:16→17:13)
[2021-01-26] MEDS: InsuLIN REG 1unit/0.01ml Soln (100units/ml) SC SCH ×4 (06:00→18:00)
[2021-01-26 06:24] LABS: Albumin 2.8 g/dL (3.4-5.0); Anion Gap 7 (5-15); Blood Urea Nitrogen 17 mg/dL (7-18); Calcium 8.3 mg/dL (8.5-10.1); Carbon Dioxide 21 mmol/L (21-32); Chloride 112 mmol/L (98-107); Glucose 85 mg/dL (74-106); Magnesium 2.1 mg/dL (1.6-2.6); Potassium 3.8 mmol/L (3.5-5.1); Sodium 140 mmol/L (136-145)
[2021-01-26 06:27] LABS: Alanine Aminotransferase 28 U/L (16-61); Alkaline Phosphatase 157 U/L (45-117); Aspartate Aminotransferase 27 U/L (15-37); Bilirubin, Total 0.9 mg/dL (0.2-1.0); Phosphorus 3.1 mg/dL (2.5-4.90); Total Protein 7.1 g/dL (6.4-8.2)
[2021-01-26 06:28] LABS: BUN/Creatinine Ratio 113.3; GFR African American 920 mL/min; GFR Non-African American 760 mL/min
[2021-01-26] MEDS: ACCU-CHEK COMFORT CURVE STRIP VI SCH ×4 (07:56→18:12)
[2021-01-26] MEDS: PANTOPRAZOLE 40 MG/10 ML VIAL INJ IV SCH (09:37)
[2021-01-26] MEDS: MICAFUNGIN SODIUM 100 MG in SODIUM CHL 0.9% 100 ML IV SCH (09:40)
[2021-01-26] MEDS: NYSTATIN TOPICAL POWDER 15GM TOP SCH ×2 (09:54→22:12)
[2021-01-26] MEDS ORDERED: PPN PER PHARMACY IV NR ×10 (20:00)
[2021-01-27] VITALS (17 sets, daily range): BP systolic 103–130; BP diastolic 54–79
[2021-01-27] MEDS: MORPHINE SULF INJ 2 MG/ML SYRINGE 1ML IV PRN ×4 (00:24→20:22)
[2021-01-27] MEDS: ALBUTEROL SULF 2.5 MG/0.5ML(0.5%) NEB SOLN NEB SCH ×4 (00:51→19:50)
[2021-01-27] MEDS: IPRATROPIUM BROM 0.5 MG/2.5ML INH SOL NEB SCH ×4 (00:51→19:50)
[2021-01-27] MEDS: ACCU-CHEK COMFORT CURVE STRIP VI SCH ×4 (00:57→17:36)
[2021-01-27] MEDS: HYDROmorphone HCL 2 MG/ML VL IV PRN ×2 (04:00→08:52)
[2021-01-27] MEDS: LORazepam 2MG/ML-1ML VIAL IV PRN ×3 (05:13→23:50)
[2021-01-27] MEDS: InsuLIN REG 1unit/0.01ml Soln (100units/ml) SC SCH ×4 (06:00→17:36)
[2021-01-27 07:27] LABS: Chloride 108 mmol/L (98-107); Potassium 4.3 mmol/L (3.5-5.1); Sodium 138 mmol/L (136-145)
[2021-01-27 07:41] LABS: Alanine Aminotransferase 26 U/L (16-61); Albumin 2.6 g/dL (3.4-5.0); Alkaline Phosphatase 151 U/L (45-117); Anion Gap 7 (5-15); Aspartate Aminotransferase 20 U/L (15-37); Blood Urea Nitrogen 19 mg/dL (7-18); Calcium 8.5 mg/dL (8.5-10.1); Carbon Dioxide 23 mmol/L (21-32); Glucose 95 mg/dL (74-106); Magnesium 2.4 mg/dL (1.6-2.6); Phosphorus 2.3 mg/dL (2.5-4.90); Total Protein 6.9 g/dL (6.4-8.2)
[2021-01-27 07:42] LABS: BUN/Creatinine Ratio 126.7; GFR African American 920 mL/min; GFR Non-African American 760 mL/min
[2021-01-27] MEDS ORDERED: SODIUM PHOSPHATES 20 MEQ in SODIUM CHL 0.9% 100 ML IV ONE (08:30)
[2021-01-27] MEDS: NYSTATIN TOPICAL POWDER 15GM TOP SCH ×2 (11:03→22:51)
[2021-01-27] MEDS: MICAFUNGIN SODIUM 100 MG in SODIUM CHL 0.9% 100 ML IV SCH (11:03)
[2021-01-27] MEDS: PANTOPRAZOLE 40 MG/10 ML VIAL INJ IV SCH (11:03)
[2021-01-27] MEDS ORDERED: MORPHINE SULF 30 mg ER tab PO ONE (11:30)
[2021-01-27 15:08] LABS: INR 1.13 (0.9-1.15); Partial Thromboplastin Time 31.7 sec (23.0-31.2)
[2021-01-27] MEDS ORDERED: PPN PER PHARMACY IV NR ×9 (20:00)
[2021-01-27] MEDS: MORPHINE SULF 30 mg ER tab PO SCH (22:06)
[2021-01-28] MEDS: ALBUTEROL SULF 2.5 MG/0.5ML(0.5%) NEB SOLN NEB SCH ×4 (00:31→18:29)
[2021-01-28] MEDS: IPRATROPIUM BROM 0.5 MG/2.5ML INH SOL NEB SCH ×4 (00:31→18:29)
[2021-01-28] MEDS: ACCU-CHEK COMFORT CURVE STRIP VI SCH ×5 (01:22→23:10)
[2021-01-28] MEDS: MORPHINE SULF INJ 2 MG/ML SYRINGE 1ML IV PRN ×5 (04:22→23:01)
[2021-01-28 05:00] VITALS: BP 135/85
[2021-01-28] MEDS: InsuLIN REG 1unit/0.01ml Soln (100units/ml) SC SCH ×5 (05:57→23:10)
[2021-01-28 06:42] LABS: Chloride 110 mmol/L (98-107); Potassium 4.4 mmol/L (3.5-5.1); Sodium 138 mmol/L (136-145)
[2021-01-28 06:57] LABS: Alanine Aminotransferase 26 U/L (16-61); Albumin 2.7 g/dL (3.4-5.0); Alkaline Phosphatase 156 U/L (45-117); Anion Gap 8 (5-15); Aspartate Aminotransferase 27 U/L (15-37); Blood Urea Nitrogen 20 mg/dL (7-18); Calcium 8.6 mg/dL (8.5-10.1); Carbon Dioxide 20 mmol/L (21-32); Glucose 96 mg/dL (74-106); Magnesium 2.4 mg/dL (1.6-2.6); Phosphorus 3.2 mg/dL (2.5-4.90); Total Protein 7.3 g/dL (6.4-8.2)
[2021-01-28 07:13] LABS: BUN/Creatinine Ratio 133.3; GFR African American 920 mL/min; GFR Non-African American 760 mL/min
[2021-01-28 09:00] VITALS: BP 152/89
[2021-01-28] MEDS: MORPHINE SULF 30 mg ER tab PO SCH (10:00)
[2021-01-28] MEDS: NYSTATIN TOPICAL POWDER 15GM TOP SCH ×2 (10:05→21:40)
[2021-01-28] MEDS: PANTOPRAZOLE 40 MG/10 ML VIAL INJ IV SCH (10:23)
[2021-01-28] MEDS: MICAFUNGIN SODIUM 100 MG in SODIUM CHL 0.9% 100 ML IV SCH (10:24)
[2021-01-28] MEDS: LORazepam 2MG/ML-1ML VIAL IV PRN ×2 (10:24→20:55)
[2021-01-28 13:00] VITALS: BP 133/77
[2021-01-28 17:00] VITALS: BP 121/76
[2021-01-28] MEDS ORDERED: PPN PER PHARMACY IV NR ×10 (20:00)
[2021-01-28 22:58] VITALS: BP 115/81
[2021-01-29] VITALS (16 sets, daily range): BP systolic 110–162; BP diastolic 68–83
[2021-01-29] MEDS: IPRATROPIUM BROM 0.5 MG/2.5ML INH SOL NEB SCH ×4 (00:41→19:47)
[2021-01-29] MEDS: ALBUTEROL SULF 2.5 MG/0.5ML(0.5%) NEB SOLN NEB SCH ×4 (00:41→19:47)
[2021-01-29] MEDS: LORazepam 2MG/ML-1ML VIAL IV PRN ×3 (03:31→20:14)
[2021-01-29] MEDS: InsuLIN REG 1unit/0.01ml Soln (100units/ml) SC SCH ×3 (06:00→18:00)
[2021-01-29 06:43] LABS: Chloride 108 mmol/L (98-107); Potassium 3.4 mmol/L (3.5-5.1); Sodium 137 mmol/L (136-145)
[2021-01-29] MEDS: ACCU-CHEK COMFORT CURVE STRIP VI SCH ×3 (06:50→18:55)
[2021-01-29 06:51] LABS: Alanine Aminotransferase 29 U/L (16-61); Albumin 2.9 g/dL (3.4-5.0); Alkaline Phosphatase 151 U/L (45-117); Anion Gap 6 (5-15); Aspartate Aminotransferase 24 U/L (15-37); Bilirubin, Total 1.2 mg/dL (0.2-1.0); Blood Urea Nitrogen 23 mg/dL (7-18); Calcium 8.5 mg/dL (8.5-10.1); Carbon Dioxide 23 mmol/L (21-32); Glucose 106 mg/dL (74-106); Magnesium 2.4 mg/dL (1.6-2.6); Phosphorus 3.9 mg/dL (2.5-4.90); Total Protein 7.3 g/dL (6.4-8.2)
[2021-01-29 06:52] LABS: BUN/Creatinine Ratio 153.3; GFR African American 920 mL/min; GFR Non-African American 760 mL/min
[2021-01-29] MEDS: MORPHINE SULF INJ 2 MG/ML SYRINGE 1ML IV PRN ×4 (07:01→21:45)
[2021-01-29] MEDS: MICAFUNGIN SODIUM 100 MG in SODIUM CHL 0.9% 100 ML IV SCH (09:54)
[2021-01-29] MEDS: PANTOPRAZOLE 40 MG/10 ML VIAL INJ IV SCH (09:54)
[2021-01-29] MEDS ORDERED: POTASSIUM CHL 20MEQ/100ML 100 ML IV ONE (10:00)
[2021-01-29] MEDS: NYSTATIN TOPICAL POWDER 15GM TOP SCH ×2 (10:08→21:00)
[2021-01-29] MEDS ORDERED: IOHEXOL 300 MG/ML 100ML BOTTLE IJ ONE (10:11)
[2021-01-29] MEDS ORDERED: LIDOCAINE 2%HCL (LOCAL ANESTH.) INJ 20ML MDV ONE (12:38)
[2021-01-29] MEDS ORDERED: HYDROmorphone HCL 2 MG/ML VL ONE (12:38)
[2021-01-29] MEDS ORDERED: HYDROmorphone HCL 2 MG/ML VL IV ONE (12:45)
[2021-01-29] MEDS ORDERED: PPN PER PHARMACY IV NR ×10 (20:00)
[2021-01-30] VITALS (7 sets, daily range): BP systolic 112–130; BP diastolic 59–71
[2021-01-30] MEDS: ACCU-CHEK COMFORT CURVE STRIP VI SCH ×4 (00:17→17:58)
[2021-01-30] MEDS: IPRATROPIUM BROM 0.5 MG/2.5ML INH SOL NEB SCH ×4 (00:35→18:55)
[2021-01-30] MEDS: ALBUTEROL SULF 2.5 MG/0.5ML(0.5%) NEB SOLN NEB SCH ×4 (00:35→18:55)
[2021-01-30] MEDS: MORPHINE SULF INJ 2 MG/ML SYRINGE 1ML IV PRN ×5 (01:53→20:06)
[2021-01-30] MEDS: LORazepam 2MG/ML-1ML VIAL IV PRN ×3 (02:17→18:23)
[2021-01-30] MEDS: InsuLIN REG 1unit/0.01ml Soln (100units/ml) SC SCH ×4 (06:00→17:59)
[2021-01-30 07:11] LABS: Chloride 108 mmol/L (98-107); Potassium 3.3 mmol/L (3.5-5.1); Sodium 139 mmol/L (136-145)
[2021-01-30 07:16] LABS: Albumin 2.6 g/dL (3.4-5.0); Anion Gap 7 (5-15); BUN/Creatinine Ratio 153.3; Blood Urea Nitrogen 23 mg/dL (7-18); Calcium 8.2 mg/dL (8.5-10.1); Carbon Dioxide 24 mmol/L (21-32); GFR African American 920 mL/min; GFR Non-African American 760 mL/min; Glucose 93 mg/dL (74-106); Magnesium 2.3 mg/dL (1.6-2.6)
[2021-01-30 07:21] LABS: Alanine Aminotransferase 26 U/L (16-61); Alkaline Phosphatase 140 U/L (45-117); Aspartate Aminotransferase 16 U/L (15-37); Bilirubin, Total 1.1 mg/dL (0.2-1.0); Phosphorus 3.4 mg/dL (2.5-4.90); Total Protein 6.8 g/dL (6.4-8.2)
[2021-01-30] MEDS: MICAFUNGIN SODIUM 100 MG in SODIUM CHL 0.9% 100 ML IV SCH (10:34)
[2021-01-30] MEDS: PANTOPRAZOLE 40 MG/10 ML VIAL INJ IV SCH (10:34)
[2021-01-30] MEDS: NYSTATIN TOPICAL POWDER 15GM TOP SCH ×2 (10:35→23:16)
[2021-01-30] MEDS: POTASSIUM CHL 20MEQ/100ML 100 ML IV SCH ×2 (12:00→14:18)
[2021-01-30] MEDS ORDERED: TPN PER PHARMACY IV NR ×10 (20:00)
[2021-01-31] MEDS: InsuLIN REG 1unit/0.01ml Soln (100units/ml) SC SCH
[2021-01-31] MEDS: IPRATROPIUM BROM 0.5 MG/2.5ML INH SOL NEB SCH (00:13)
[2021-01-31] MEDS: ALBUTEROL SULF 2.5 MG/0.5ML(0.5%) NEB SOLN NEB SCH (00:13)
[2021-01-31] MEDS: ACCU-CHEK COMFORT CURVE STRIP VI SCH (00:18)
[2021-01-31] MEDS: LORazepam 2MG/ML-1ML VIAL IV PRN (00:19)
[2021-01-31] MEDS: MORPHINE SULF INJ 2 MG/ML SYRINGE 1ML IV PRN (01:29)
[2021-02-06] MEDS ORDERED: ASPI-231 PO (16:07)
== END 2021-01-31 03:40 | disposition home health service (06) | DRG 314 ==
LOC: ER 13:34 → EDBD 13:34 → TELE 17:11 → DOU IN ICU 01-14 06:04 → WEST WING 01-27 09:59 → TELE-WESTW 01-27 13:00
PROVIDERS: ADMIT Nurse Practitioner Acute Care; ATTEND Internal Medicine
PROC: 5A1955Z Respiratory Ventilation, Greater than 96 Consecutive Hours (ICD-10-PCS; principal; 2021-01-13)
PROC: 05HD33Z Insertion of Infusion Device into Right Cephalic Vein, Percutaneous Approach (ICD-10-PCS; 2021-01-15)
PROC: B54MZZA Ultrasonography of Right Upper Extremity Veins, Guidance (ICD-10-PCS; 2021-01-15)
PROC: 0JPT0WZ Removal of Totally Implantable Vascular Access Device from Trunk Subcutaneous Tissue and Fascia, Open Approach (ICD-10-PCS; 2021-01-24)
PROC: 02HV33Z Insertion of Infusion Device into Superior Vena Cava, Percutaneous Approach (ICD-10-PCS; 2021-01-29)
PROC: B5181ZA Fluoroscopy of Superior Vena Cava using Low Osmolar Contrast, Guidance (ICD-10-PCS; 2021-01-29)
PROC: B548ZZA Ultrasonography of Superior Vena Cava, Guidance (ICD-10-PCS; 2021-01-29)
DX: T80.218A Other infection due to central venous catheter, initial encounter (principal); A41.89 Other specified sepsis; J96.21 Acute and chronic respiratory failure with hypoxia; J15.212 Pneumonia due to Methicillin resistant Staphylococcus aureus; I33.0 Acute and subacute infective endocarditis; B49 Unspecified mycosis; J95.851 Ventilator associated pneumonia; Z99.11 Dependence on respirator [ventilator] status; E44.0 Moderate protein-calorie malnutrition; E87.1 Hypo-osmolality and hyponatremia; I82.411 Acute embolism and thrombosis of right femoral vein; Z66 Do not resuscitate; D64.9 Anemia, unspecified; Z93.1 Gastrostomy status; D69.6 Thrombocytopenia, unspecified; E87.6 Hypokalemia; Z93.0 Tracheostomy status; Z20.822 Contact with and (suspected) exposure to COVID-19; G71.01 Duchenne or Becker muscular dystrophy; G89.29 Other chronic pain; Y83.8 Other surgical procedures as the cause of abnormal reaction of the patient, or of later complication, without mention of misadventure at the time of the procedure; Y92.89 Other specified places as the place of occurrence of the external cause; Z68.24 Body mass index [BMI] 24.0-24.9, adult
CPT/HCPCS: 36415; 36600; 71045; 71260; 74177; 76942; 80048; 80053; 80061; 80202; 81001; 82040; 82565; 82805; 82962; 83036; 83605; 83735; 83880; 84100; 84478; 84484; 85007; 85025; 85027; 85379; 85610; 85730; 86850; 86900; 86901; 87040; 87070; 87075; 87077; 87081; 87186; 87205; 87426; 93005; 93306; 93970; 94002; 94003; 94640; 94667; 94668; 96365; 96366; 96367; 96368; 96372; 96375; 99291; A4605; C9113; G0378; J0690; J0696; J1100; J2001; J2185; J2248; J2250; J2405; J3480; J7060

== ENCOUNTER 2021-02-06 09:03 | Inpatient (IN) | payer MEDICARE, MEDICAID ==
[~2021-02-06] VITALS: Ht 177.8 cm; Wt 81.1 kg
[2021-02-06] VITALS (8 sets, daily range): BP systolic 113–139; BP diastolic 58–82
[2021-02-06] MEDS ORDERED: TRAZ50TA2 PO (09:37)
[2021-02-06] MEDS ORDERED: FUR20T PO (09:37)
[2021-02-06] MEDS ORDERED: OXYC-629 (09:37)
[2021-02-06] MEDS ORDERED: ALPR0.5T8 PO (09:37)
[2021-02-06] MEDS ORDERED: MORP30TA5 PO (09:37)
[2021-02-06] MEDS ORDERED: BACL10TA PO (09:37)
[2021-02-06] MEDS ORDERED: SODIUM CHLORIDE 0.9% 1,000 ML IV ONE ×3 (09:45→13:30)
[2021-02-06 11:10] LABS: INR 1.18 (0.9-1.15); Partial Thromboplastin Time 32.3 sec (23.0-31.2)
[2021-02-06 11:34] LABS: Eosinophils # (auto) 0.2 10 ^3/uL (0-0.8); Hematocrit 24.4 % (41.0-53.0); Hemoglobin 8.4 g/dL (13.5-17.5); Lymphocytes # (auto) 0.5 10 ^3/uL (0.4-5.4); Monocytes # (auto) 0.3 10 ^3/uL (0-1.3); Red Blood Cells 3.25 10^6/uL (4.5-5.90)
[2021-02-06 11:36] LABS: Basophils # (auto) 0.1 10 ^3/uL (0-0.2); Basophils % (auto) 1.1 % (0.0-2.0); Eosinophils % (auto) 4.3 % (0.0-7.0); Lymphocytes % (auto) 9.8 % (10.0-50.0); Mean Corpuscular Hgb Conc. 34.6 g/dL (32.0-36.0); Monocytes % (auto) 5.1 % (0.0-12.0); Neutrophils # (auto) 4.4 10 ^3/uL (1.6-8.6); Neutrophils % (auto) 79.7 % (37.0-80.0); Red Cell Distribution Width 19.9 % (11.8-14.3); White Blood Cell 5.6 10^3/uL (4.4-10.8)
[2021-02-06 11:46] LABS: Chloride 106 mmol/L (98-107); Potassium 3.6 mmol/L (3.5-5.1); Sodium 136 mmol/L (136-145)
[2021-02-06 11:55] LABS: Alanine Aminotransferase 23 U/L (16-61); Alkaline Phosphatase 212 U/L (45-117); Anion Gap 10 (5-15); Aspartate Aminotransferase 15 U/L (15-37); Bilirubin, Total 0.9 mg/dL (0.2-1.0); Blood Urea Nitrogen 16 mg/dL (7-18); Calcium 8.8 mg/dL (8.5-10.1); Carbon Dioxide 20 mmol/L (21-32); Glucose 81 mg/dL (74-106); Total Protein 7.6 g/dL (6.4-8.2)
[2021-02-06 12:01] LABS: BUN/Creatinine Ratio 106.7; GFR African American 920 mL/min; GFR Non-African American 760 mL/min
[2021-02-06] MEDS ORDERED: NITROGLYCERIN 0.4 MG SL TAB SL PRN (13:15)
[2021-02-06] MEDS ORDERED: VANCOMYCIN 1GM/250ML 250 ML IV ONE ×3 (13:15→16:30)
[2021-02-06] MEDS ORDERED: VANCOMYCIN PER PHARMACY 0 MG IV SCH (13:15)
[2021-02-06] MEDS ORDERED: ALBUTEROL SULF 2.5 MG/0.5ML(0.5%) NEB SOLN NEB ONE (13:30)
[2021-02-06] MEDS ORDERED: IPRATROPIUM BROM 0.5 MG/2.5ML INH SOL NEB ONE (13:30)
[2021-02-06] MEDS ORDERED: IPRATROPIUM BROM 0.5 MG/2.5ML INH SOL ONE (13:33)
[2021-02-06] MEDS ORDERED: ALBUTEROL SULF 2.5 MG/0.5ML(0.5%) NEB SOLN ONE (13:34)
[2021-02-06] MEDS ORDERED: HYDROcodone-ACET 5/325MG TAB PO PRN (14:15)
[2021-02-06] MEDS ORDERED: ACETAMINOPHEN 500 MG TAB PO PRN (14:15)
[2021-02-06] MEDS ORDERED: ALBUTEROL SULF 2.5 MG/0.5ML(0.5%) NEB SOLN NEB PRN (14:15)
[2021-02-06] MEDS ORDERED: ERTAPENEM SOD INJ 1 GM in SODIUM CHL 0.9% 50 ML IV ONE (14:15)
[2021-02-06] MEDS: SODIUM CHLORIDE 0.9% 1,000 ML IV SCH (14:18)
[2021-02-06] MEDS ORDERED: ENOXAPARIN SOD 100 MG/1 ML SYRINGE SC ONE (15:00)
[2021-02-06] MEDS ORDERED: VANCOMYCIN 1GM/250ML 250 ML IV SCH (15:00)
[2021-02-06] MEDS: PROMETHAZINE HCL 25 MG/ML 1ML IV PRN ×2 (15:05→22:35)
[2021-02-06] MEDS: MORPHINE SULFATE INJECTION 2 MG/ML SYRG IV PRN ×2 (15:06→22:36)
[2021-02-06] MEDS ORDERED: ENOXAPARIN SOD 80 MG/0.8ML SYRINGE SC ONE (15:30)
[2021-02-06] MEDS ORDERED: [UNRECOGNIZED DRUG - CODE] IV (16:05)
[2021-02-06] MEDS ORDERED: FERR65TA12 PO (16:07)
[2021-02-06] MEDS ORDERED: ASPI1TAB20 PO (16:07)
[2021-02-06] MEDS ORDERED: POM (16:10)
[2021-02-06] MEDS ORDERED: OXYC325T10 PO (16:17)
[2021-02-06] MEDS ORDERED: MICAFUNGIN SODIUM 100 MG in SODIUM CHL 0.9% 100 ML IV ONE (18:00)
[2021-02-06] MEDS: IPRATROPIUM BROM 0.5 MG/2.5ML INH SOL NEB PRN (18:20)
[2021-02-06] MEDS: ALBUTEROL SULF 2.5 MG/0.5ML(0.5%) NEB SOLN NEB SCH ×2 (18:20→22:40)
[2021-02-06 18:26] LABS: Urine Amorphous Crystal FEW /hpf (None Seen); Urine Bacteria FEW /hpf (None Seen); Urine Blood Negative /uL (Negative); Urine Specific Gravity 1.011 (1.001-1.035); Urine WBC 79 /hpf (0 - 3); Urine WBC Clumps PRESENT /hpf (None Seen)
[2021-02-06] MEDS ORDERED: ENOXAPARIN SOD 40 MG/0.4 ML SYRINGE SC SCH (22:00)
[2021-02-06] MEDS: ALPRAZolam 0.5 MG TAB PO PRN (22:35)
[2021-02-06] MEDS: BACLOFEN 10 MG TAB PO SCH (22:35)
[2021-02-06] MEDS: OXYCODONE W/ ACETAMINOPHEN 5/325MG TABLET GT SCH (22:36)
[2021-02-06] MEDS: ENOXAPARIN SOD 80 MG/0.8ML SYRINGE SC SCH (22:36)
[2021-02-06] MEDS: traZODone HCL 50 MG TAB PO SCH (22:37)
[2021-02-06] MEDS: MORPHINE SULF 30 mg ER tab PO SCH (22:37)
[2021-02-07] VITALS (17 sets, daily range): BP systolic 94–140; BP diastolic 49–75
[2021-02-07] MEDS: ALBUTEROL SULF 2.5 MG/0.5ML(0.5%) NEB SOLN NEB SCH ×6 (02:35→22:21)
[2021-02-07] MEDS: SODIUM CHLORIDE 0.9% 1,000 ML IV SCH (03:45)
[2021-02-07] MEDS: OXYCODONE W/ ACETAMINOPHEN 5/325MG TABLET GT SCH ×2 (05:34→14:00)
[2021-02-07] MEDS: MORPHINE SULFATE INJECTION 2 MG/ML SYRG IV PRN ×4 (05:35→23:18)
[2021-02-07] MEDS: PROMETHAZINE HCL 25 MG/ML 1ML IV PRN ×4 (05:35→23:18)
[2021-02-07] MEDS: BACLOFEN 10 MG TAB PO SCH ×3 (05:35→22:00)
[2021-02-07] MEDS: IPRATROPIUM BROM 0.5 MG/2.5ML INH SOL NEB PRN ×2 (06:51→14:03)
[2021-02-07 06:59] LABS: Basophils # (auto) 0.1 10 ^3/uL (0-0.2); Eosinophils # (auto) 0.3 10 ^3/uL (0-0.8); Hemoglobin 7.5 g/dL (13.5-17.5); Lymphocytes # (auto) 0.4 10 ^3/uL (0.4-5.4); Monocytes # (auto) 0.2 10 ^3/uL (0-1.3); Neutrophils # (auto) 2.1 10 ^3/uL (1.6-8.6); Nucleated Red Blood Cells % 0.1 %; Red Cell Distribution Width 19.9 % (11.8-14.3)
[2021-02-07 07:00] LABS: Basophils % (auto) 4.6 % (0.0-2.0); Eosinophils % (auto) 10.4 % (0.0-7.0); Hematocrit 22.4 % (41.0-53.0); Mean Corpuscular Hemoglobin 25.3 pg (28.0-32.0); Mean Corpuscular Hgb Conc. 33.6 g/dL (32.0-36.0); Mean Corpuscular Volume 75.5 fL (80.0-100.0); Monocytes % (auto) 6.4 % (0.0-12.0); Neutrophils % (auto) 65.6 % (37.0-80.0); Red Blood Cells 2.96 10^6/uL (4.5-5.90); White Blood Cell 3.2 10^3/uL (4.4-10.8)
[2021-02-07 07:10] LABS: Albumin 2.8 g/dL (3.4-5.0); Anion Gap 10 (5-15); Blood Urea Nitrogen 14 mg/dL (7-18); Calcium 8.5 mg/dL (8.5-10.1); Carbon Dioxide 19 mmol/L (21-32); Chloride 108 mmol/L (98-107); Glucose 57 mg/dL (74-106); Potassium 3.6 mmol/L (3.5-5.1); Sodium 137 mmol/L (136-145)
[2021-02-07 07:28] LABS: Alanine Aminotransferase 23 U/L (16-61); Alkaline Phosphatase 208 U/L (45-117); Aspartate Aminotransferase 20 U/L (15-37); Bilirubin, Total 1.2 mg/dL (0.2-1.0)
[2021-02-07 08:00] LABS: BUN/Creatinine Ratio 93.3; GFR African American 920 mL/min; GFR Non-African American 760 mL/min
[2021-02-07] MEDS ORDERED: DEXTROSE 50% SYRINGE 50 ML IV ONE ×2 (08:50→17:16)
[2021-02-07] MEDS ORDERED: DEXTROSE (50%) 50ML SYRG IV ONE (09:15)
[2021-02-07] MEDS ORDERED: AZITHROMYCIN 500MG/ 250ML 250 ML IV SCH (10:00)
[2021-02-07] MEDS: MORPHINE SULF 30 mg ER tab PO SCH ×2 (10:00→22:00)
[2021-02-07] MEDS: ENOXAPARIN SOD 80 MG/0.8ML SYRINGE SC SCH (11:15)
[2021-02-07] MEDS: PANTOPRAZOLE 40 MG/10 ML VIAL INJ IV SCH (11:15)
[2021-02-07] MEDS: MICAFUNGIN SODIUM 100 MG in SODIUM CHL 0.9% 100 ML IV SCH (11:15)
[2021-02-07] MEDS: ERTAPENEM SOD INJ 1 GM in SODIUM CHL 0.9% 50 ML IV SCH (11:15)
[2021-02-07] MEDS ORDERED: TPN PER PHARMACY 0 ML IV SCH (13:00)
[2021-02-07 13:56] LABS: Magnesium 2.1 mg/dL (1.6-2.6)
[2021-02-07] MEDS ORDERED: VANCOMYCIN 1GM/250ML 250 ML IV SCH (14:00)
[2021-02-07] MEDS: DEXTROSE (50%) 50ML SYRG IV SCH (17:22)
[2021-02-07] MEDS ORDERED: AMINO ACID INFUSION IN D10W 1,000 ML IV NR (20:00)
[2021-02-07] MEDS: traZODone HCL 50 MG TAB PO SCH (22:00)
[2021-02-08] VITALS (33 sets, daily range): BP systolic 90–176; BP diastolic 44–84
[2021-02-08] MEDS: OXYCODONE W/ ACETAMINOPHEN 5/325MG TABLET GT SCH ×4 (01:40→22:11)
[2021-02-08] MEDS: ACCU-CHEK COMFORT CURVE STRIP VI SCH ×4 (01:40→17:45)
[2021-02-08] MEDS: DEXTROSE (50%) 50ML SYRG IV SCH ×3 (01:42→18:05)
[2021-02-08] MEDS: ALBUTEROL SULF 2.5 MG/0.5ML(0.5%) NEB SOLN NEB SCH ×6 (02:08→22:39)
[2021-02-08] MEDS: PROMETHAZINE HCL 25 MG/ML 1ML IV PRN ×2 (04:57→22:25)
[2021-02-08] MEDS: MORPHINE SULFATE INJECTION 2 MG/ML SYRG IV PRN ×5 (04:58→22:12)
[2021-02-08] MEDS: BACLOFEN 10 MG TAB PO SCH ×3 (06:00→22:00)
[2021-02-08] MEDS: InsuLIN REG 1unit/0.01ml Soln (100units/ml) SC SCH ×4 (06:00→17:44)
[2021-02-08 07:10] LABS: Albumin 2.7 g/dL (3.4-5.0); Anion Gap 10 (5-15); Blood Urea Nitrogen 16 mg/dL (7-18); Calcium 8.3 mg/dL (8.5-10.1); Carbon Dioxide 18 mmol/L (21-32); Chloride 113 mmol/L (98-107); Glucose 59 mg/dL (74-106); Magnesium 2.1 mg/dL (1.6-2.6); Sodium 141 mmol/L (136-145)
[2021-02-08 07:14] LABS: Alanine Aminotransferase 22 U/L (16-61); Alkaline Phosphatase 191 U/L (45-117); Aspartate Aminotransferase 14 U/L (15-37); Bilirubin, Total 0.8 mg/dL (0.2-1.0); Phosphorus 2.6 mg/dL (2.5-4.90); Total Protein 6.9 g/dL (6.4-8.2)
[2021-02-08 07:16] LABS: BUN/Creatinine Ratio 106.7; GFR African American 920 mL/min; GFR Non-African American 760 mL/min
[2021-02-08 07:17] LABS: Potassium 2.6 mmol/L (3.5-5.1)
[2021-02-08 07:19] LABS: Pre Albumin 18.5 mg/dL (20.0-40.0)
[2021-02-08] MEDS ORDERED: POTASSIUM CHLORIDE 60 MEQ, LIDOCAINE 1% (LOCAL ANESTH.) 6 ML in SODIUM CHL 0.9% 500 ML IV ONE (08:45)
[2021-02-08] MEDS: MICAFUNGIN SODIUM 100 MG in SODIUM CHL 0.9% 100 ML IV SCH (09:29)
[2021-02-08] MEDS: ERTAPENEM SOD INJ 1 GM in SODIUM CHL 0.9% 50 ML IV SCH (09:29)
[2021-02-08] MEDS: PANTOPRAZOLE 40 MG/10 ML VIAL INJ IV SCH (09:30)
[2021-02-08] MEDS: MORPHINE SULF 30 mg ER tab PO SCH ×2 (10:00→22:00)
[2021-02-08] MEDS: ENOXAPARIN SOD 40 MG/0.4 ML SYRINGE SC SCH (12:58)
[2021-02-08] MEDS: ALPRAZolam 0.5 MG TAB PO PRN (18:04)
[2021-02-08] MEDS ORDERED: TPN PER PHARMACY IV NR ×9 (20:00)
[2021-02-08] MEDS: traZODone HCL 50 MG TAB PO SCH (22:00)
[2021-02-08] MEDS: IPRATROPIUM BROM 0.5 MG/2.5ML INH SOL NEB PRN (22:38)
[2021-02-09] MEDS: MUPIROCIN 2% OINT 15gm or 22gm EACHNOSTRI SCH ×3 (00:23→21:51)
[2021-02-09] MEDS: ALBUTEROL SULF 2.5 MG/0.5ML(0.5%) NEB SOLN NEB SCH ×6 (02:13→22:02)
[2021-02-09] MEDS: MORPHINE SULFATE INJECTION 2 MG/ML SYRG IV PRN ×5 (02:32→20:36)
[2021-02-09] MEDS: PROMETHAZINE HCL 25 MG/ML 1ML IV PRN ×5 (02:33→20:35)
[2021-02-09] MEDS: ACCU-CHEK COMFORT CURVE STRIP VI SCH ×4 (05:36→18:21)
[2021-02-09] MEDS: InsuLIN REG 1unit/0.01ml Soln (100units/ml) SC SCH ×4 (05:36→18:00)
[2021-02-09 05:46] LABS: Albumin 2.5 g/dL (3.4-5.0); Anion Gap 8 (5-15); Blood Urea Nitrogen 22 mg/dL (7-18); Calcium 7.9 mg/dL (8.5-10.1); Carbon Dioxide 18 mmol/L (21-32); Chloride 114 mmol/L (98-107); Glucose 94 mg/dL (74-106); Magnesium 2.1 mg/dL (1.6-2.6); Potassium 4.1 mmol/L (3.5-5.1); Sodium 140 mmol/L (136-145)
[2021-02-09 05:49] LABS: Alanine Aminotransferase 21 U/L (16-61); Alkaline Phosphatase 176 U/L (45-117); Aspartate Aminotransferase 13 U/L (15-37); Bilirubin, Total 0.5 mg/dL (0.2-1.0); Phosphorus 3.4 mg/dL (2.5-4.90); Total Protein 6.7 g/dL (6.4-8.2)
[2021-02-09] MEDS: OXYCODONE W/ ACETAMINOPHEN 5/325MG TABLET GT SCH ×3 (06:00→22:00)
[2021-02-09] MEDS: BACLOFEN 10 MG TAB PO SCH ×3 (06:00→21:51)
[2021-02-09 06:06] LABS: BUN/Creatinine Ratio 146.7; GFR African American 920 mL/min; GFR Non-African American 760 mL/min
[2021-02-09 09:00] VITALS: BP 112/66
[2021-02-09] MEDS: ERTAPENEM SOD INJ 1 GM in SODIUM CHL 0.9% 50 ML IV SCH (09:32)
[2021-02-09] MEDS: MORPHINE SULF 30 mg ER tab PO SCH ×2 (10:00→22:00)
[2021-02-09] MEDS: ALPRAZolam 0.5 MG TAB PO PRN ×2 (10:06→21:51)
[2021-02-09] MEDS: ENOXAPARIN SOD 40 MG/0.4 ML SYRINGE SC SCH (10:07)
[2021-02-09] MEDS: MICAFUNGIN SODIUM 100 MG in SODIUM CHL 0.9% 100 ML IV SCH (10:07)
[2021-02-09] MEDS: PANTOPRAZOLE 40 MG/10 ML VIAL INJ IV SCH (10:07)
[2021-02-09 10:10] VITALS: BP 112/66
[2021-02-09 10:51] VITALS: BP 116/64
[2021-02-09 13:00] VITALS: BP 139/76
[2021-02-09] MEDS: MEROPENEM 1GM IVPB 100 ML IV SCH ×2 (13:33→21:51)
[2021-02-09 17:00] VITALS: BP 112/66
[2021-02-09] MEDS ORDERED: TPN PER PHARMACY IV NR ×10 (20:00)
[2021-02-09 22:00] VITALS: BP 118/72
[2021-02-09] MEDS: traZODone HCL 50 MG TAB PO SCH (22:00)
[2021-02-10] VITALS (7 sets, daily range): BP systolic 101–123; BP diastolic 53–77
[2021-02-10] MEDS: ACCU-CHEK COMFORT CURVE STRIP VI SCH ×4 (00:26→17:44)
[2021-02-10] MEDS: PROMETHAZINE HCL 25 MG/ML 1ML IV PRN ×6 (00:27→19:41)
[2021-02-10] MEDS: MORPHINE SULFATE INJECTION 2 MG/ML SYRG IV PRN ×5 (00:27→19:41)
[2021-02-10] MEDS: ALBUTEROL SULF 2.5 MG/0.5ML(0.5%) NEB SOLN NEB SCH ×6 (02:26→22:34)
[2021-02-10] MEDS: InsuLIN REG 1unit/0.01ml Soln (100units/ml) SC SCH ×4 (06:00→17:44)
[2021-02-10] MEDS: MEROPENEM 1GM IVPB 100 ML IV SCH ×3 (06:19→22:31)
[2021-02-10] MEDS: BACLOFEN 10 MG TAB PO SCH ×3 (06:19→22:32)
[2021-02-10] MEDS: OXYCODONE W/ ACETAMINOPHEN 5/325MG TABLET GT SCH ×3 (06:20→22:31)
[2021-02-10 06:41] LABS: Albumin 2.6 g/dL (3.4-5.0); Anion Gap 6 (5-15); Blood Urea Nitrogen 23 mg/dL (7-18); Calcium 8.1 mg/dL (8.5-10.1); Carbon Dioxide 21 mmol/L (21-32); Chloride 112 mmol/L (98-107); Glucose 94 mg/dL (74-106); Magnesium 2.5 mg/dL (1.6-2.6); Potassium 4.3 mmol/L (3.5-5.1); Sodium 139 mmol/L (136-145)
[2021-02-10 06:45] LABS: Alanine Aminotransferase 25 U/L (16-61); Alkaline Phosphatase 184 U/L (45-117); Aspartate Aminotransferase 26 U/L (15-37); Bilirubin, Total 0.5 mg/dL (0.2-1.0); Phosphorus 3.3 mg/dL (2.5-4.90); Total Protein 6.8 g/dL (6.4-8.2)
[2021-02-10 06:51] LABS: BUN/Creatinine Ratio 153.3; GFR African American 920 mL/min; GFR Non-African American 760 mL/min
[2021-02-10] MEDS: MORPHINE SULF 30 mg ER tab PO SCH ×2 (09:41→22:00)
[2021-02-10] MEDS: ENOXAPARIN SOD 40 MG/0.4 ML SYRINGE SC SCH (10:02)
[2021-02-10] MEDS: PANTOPRAZOLE 40 MG/10 ML VIAL INJ IV SCH (10:02)
[2021-02-10] MEDS: MUPIROCIN 2% OINT 15gm or 22gm EACHNOSTRI SCH ×2 (10:02→22:30)
[2021-02-10] MEDS: MICAFUNGIN SODIUM 100 MG in SODIUM CHL 0.9% 100 ML IV SCH (10:39)
[2021-02-10] MEDS: ALPRAZolam 0.5 MG TAB PO PRN (17:43)
[2021-02-10] MEDS: IPRATROPIUM BROM 0.5 MG/2.5ML INH SOL NEB PRN ×2 (18:55→22:34)
[2021-02-10] MEDS ORDERED: TPN PER PHARMACY IV NR ×11 (20:00)
[2021-02-10] MEDS: traZODone HCL 50 MG TAB PO SCH (22:31)
[2021-02-11] VITALS (11 sets, daily range): BP systolic 105–126; BP diastolic 54–77
[2021-02-11] MEDS: PROMETHAZINE HCL 25 MG/ML 1ML IV PRN ×4 (00:13→23:05)
[2021-02-11] MEDS: MORPHINE SULFATE INJECTION 2 MG/ML SYRG IV PRN ×7 (00:13→23:06)
[2021-02-11] MEDS: IPRATROPIUM BROM 0.5 MG/2.5ML INH SOL NEB PRN ×5 (02:30→22:22)
[2021-02-11] MEDS: ALBUTEROL SULF 2.5 MG/0.5ML(0.5%) NEB SOLN NEB SCH ×6 (02:30→22:22)
[2021-02-11 05:50] LABS: Chloride 110 mmol/L (98-107); Potassium 4.7 mmol/L (3.5-5.1); Sodium 138 mmol/L (136-145)
[2021-02-11 05:56] LABS: Alanine Aminotransferase 39 U/L (16-61); Albumin 2.6 g/dL (3.4-5.0); Alkaline Phosphatase 206 U/L (45-117); Anion Gap 6 (5-15); Aspartate Aminotransferase 39 U/L (15-37); Bilirubin, Total 0.8 mg/dL (0.2-1.0); Blood Urea Nitrogen 24 mg/dL (7-18); Calcium 8.1 mg/dL (8.5-10.1); Carbon Dioxide 22 mmol/L (21-32); Glucose 93 mg/dL (74-106); Magnesium 2.7 mg/dL (1.6-2.6)
[2021-02-11] MEDS: InsuLIN REG 1unit/0.01ml Soln (100units/ml) SC SCH ×5 (06:00→23:22)
[2021-02-11 06:16] LABS: GFR African American 920 mL/min; GFR Non-African American 760 mL/min
[2021-02-11] MEDS: BACLOFEN 10 MG TAB PO SCH ×3 (06:21→21:43)
[2021-02-11] MEDS: ACCU-CHEK COMFORT CURVE STRIP VI SCH ×5 (06:21→23:22)
[2021-02-11] MEDS: MEROPENEM 1GM IVPB 100 ML IV SCH ×3 (06:23→21:42)
[2021-02-11] MEDS: OXYCODONE W/ ACETAMINOPHEN 5/325MG TABLET GT SCH ×4 (07:04→21:55)
[2021-02-11] MEDS: PANTOPRAZOLE 40 MG/10 ML VIAL INJ IV SCH (09:45)
[2021-02-11] MEDS: MICAFUNGIN SODIUM 100 MG in SODIUM CHL 0.9% 100 ML IV SCH (09:45)
[2021-02-11] MEDS: ENOXAPARIN SOD 40 MG/0.4 ML SYRINGE SC SCH (09:46)
[2021-02-11] MEDS: MORPHINE SULF 30 mg ER tab PO SCH ×2 (09:50→21:56)
[2021-02-11] MEDS: MUPIROCIN 2% OINT 15gm or 22gm EACHNOSTRI SCH ×2 (11:31→21:43)
[2021-02-11] MEDS ORDERED: TPN PER PHARMACY IV NR ×20 (20:00)
[2021-02-11] MEDS: ALPRAZolam 0.5 MG TAB PO PRN (21:42)
[2021-02-11] MEDS: traZODone HCL 50 MG TAB PO SCH (21:55)
[2021-02-12] MEDS: ALBUTEROL SULF 2.5 MG/0.5ML(0.5%) NEB SOLN NEB SCH ×6 (02:00→22:14)
[2021-02-12 05:07] VITALS: BP 105/54
[2021-02-12] MEDS: ACCU-CHEK COMFORT CURVE STRIP VI SCH ×4 (06:00→23:14)
[2021-02-12] MEDS: OXYCODONE W/ ACETAMINOPHEN 5/325MG TABLET GT SCH ×3 (06:00→21:21)
[2021-02-12] MEDS: InsuLIN REG 1unit/0.01ml Soln (100units/ml) SC SCH ×4 (06:00→23:14)
[2021-02-12 06:09] VITALS: BP 105/54
[2021-02-12 06:14] LABS: Albumin 2.4 g/dL (3.4-5.0); Anion Gap 7 (5-15); Blood Urea Nitrogen 23 mg/dL (7-18); Calcium 8.1 mg/dL (8.5-10.1); Carbon Dioxide 22 mmol/L (21-32); Chloride 110 mmol/L (98-107); Glucose 86 mg/dL (74-106); Magnesium 2.4 mg/dL (1.6-2.6); Potassium 4.1 mmol/L (3.5-5.1); Sodium 139 mmol/L (136-145)
[2021-02-12 06:19] LABS: Alanine Aminotransferase 36 U/L (16-61); Alkaline Phosphatase 205 U/L (45-117); Aspartate Aminotransferase 31 U/L (15-37); Bilirubin, Total 0.8 mg/dL (0.2-1.0); Phosphorus 3.1 mg/dL (2.5-4.90); Total Protein 6.6 g/dL (6.4-8.2)
[2021-02-12 06:21] LABS: BUN/Creatinine Ratio 153.3; GFR African American 920 mL/min; GFR Non-African American 760 mL/min
[2021-02-12] MEDS: IPRATROPIUM BROM 0.5 MG/2.5ML INH SOL NEB PRN ×4 (06:27→22:14)
[2021-02-12] MEDS: MORPHINE SULFATE INJECTION 2 MG/ML SYRG IV PRN ×4 (06:35→21:20)
[2021-02-12] MEDS: BACLOFEN 10 MG TAB PO SCH ×3 (06:35→21:21)
[2021-02-12] MEDS: PROMETHAZINE HCL 25 MG/ML 1ML IV PRN ×4 (06:35→21:21)
[2021-02-12] MEDS: MEROPENEM 1GM IVPB 100 ML IV SCH ×3 (06:37→21:21)
[2021-02-12 08:13] VITALS: BP 103/56
[2021-02-12] MEDS: MORPHINE SULF 30 mg ER tab PO SCH ×2 (10:00→21:22)
[2021-02-12] MEDS: MICAFUNGIN SODIUM 100 MG in SODIUM CHL 0.9% 100 ML IV SCH (10:32)
[2021-02-12] MEDS: PANTOPRAZOLE 40 MG/10 ML VIAL INJ IV SCH (10:33)
[2021-02-12] MEDS: MUPIROCIN 2% OINT 15gm or 22gm EACHNOSTRI SCH ×2 (10:33→21:21)
[2021-02-12] MEDS: ALPRAZolam 0.5 MG TAB PO PRN ×2 (10:33→23:17)
[2021-02-12] MEDS: ENOXAPARIN SOD 40 MG/0.4 ML SYRINGE SC SCH (10:33)
[2021-02-12 12:37] VITALS: BP 110/61
[2021-02-12] MEDS ORDERED: CATHFLO ACTIVASE (ALTEPLASE) 2 MG VIAL IV ONE (14:30)
[2021-02-12 16:43] VITALS: BP 107/62
[2021-02-12] MEDS ORDERED: TPN PER PHARMACY IV NR ×10 (20:00)
[2021-02-12] MEDS: traZODone HCL 50 MG TAB PO SCH (21:21)
[2021-02-12 21:24] VITALS: BP 112/59
[2021-02-13] MEDS: ALBUTEROL SULF 2.5 MG/0.5ML(0.5%) NEB SOLN NEB SCH ×6 (02:20→22:30)
[2021-02-13] MEDS: MORPHINE SULFATE INJECTION 2 MG/ML SYRG IV PRN ×5 (03:31→18:29)
[2021-02-13] MEDS: PROMETHAZINE HCL 25 MG/ML 1ML IV PRN ×3 (03:32→18:29)
[2021-02-13 04:40] VITALS: BP 95/55
[2021-02-13] MEDS: MEROPENEM 1GM IVPB 100 ML IV SCH ×3 (05:12→22:00)
[2021-02-13] MEDS: ACCU-CHEK COMFORT CURVE STRIP VI SCH ×3 (05:12→17:27)
[2021-02-13] MEDS: BACLOFEN 10 MG TAB PO SCH ×2 (05:12→05:28)
[2021-02-13] MEDS: OXYCODONE W/ ACETAMINOPHEN 5/325MG TABLET GT SCH ×3 (05:29→22:00)
[2021-02-13] MEDS: InsuLIN REG 1unit/0.01ml Soln (100units/ml) SC SCH ×3 (05:29→17:27)
[2021-02-13 05:43] LABS: Calcium 7.8 mg/dL (8.5-10.1); Chloride 111 mmol/L (98-107); Potassium 3.7 mmol/L (3.5-5.1); Sodium 141 mmol/L (136-145)
[2021-02-13 05:49] LABS: Alanine Aminotransferase 36 U/L (16-61); Albumin 2.5 g/dL (3.4-5.0); Alkaline Phosphatase 202 U/L (45-117); Anion Gap 6 (5-15); Aspartate Aminotransferase 30 U/L (15-37); Bilirubin, Total 0.7 mg/dL (0.2-1.0); Blood Urea Nitrogen 27 mg/dL (7-18); Carbon Dioxide 24 mmol/L (21-32); Glucose 94 mg/dL (74-106); Magnesium 2.2 mg/dL (1.6-2.6); Phosphorus 3.6 mg/dL (2.5-4.90); Total Protein 6.8 g/dL (6.4-8.2)
[2021-02-13 05:53] LABS: GFR African American 920 mL/min; GFR Non-African American 760 mL/min
[2021-02-13] MEDS ORDERED: ALPRAZolam 0.5 MG TAB PEG PRN (08:15)
[2021-02-13] MEDS: IPRATROPIUM BROM 0.5 MG/2.5ML INH SOL NEB PRN (09:31)
[2021-02-13] MEDS: MORPHINE SULF 30 mg ER tab PO SCH ×2 (10:00→22:00)
[2021-02-13] MEDS: PANTOPRAZOLE 40 MG/10 ML VIAL INJ IV SCH (10:06)
[2021-02-13] MEDS: ENOXAPARIN SOD 40 MG/0.4 ML SYRINGE SC SCH (10:06)
[2021-02-13] MEDS: MUPIROCIN 2% OINT 15gm or 22gm EACHNOSTRI SCH ×2 (10:08→22:00)
[2021-02-13] MEDS: MICAFUNGIN SODIUM 100 MG in SODIUM CHL 0.9% 100 ML IV SCH (10:08)
[2021-02-13 13:00] VITALS: BP 129/73
[2021-02-13] MEDS: BACLOFEN 10 MG TAB PEG SCH ×2 (14:00→22:00)
[2021-02-13 17:00] VITALS: BP 131/72
[2021-02-13] MEDS ORDERED: TPN PER PHARMACY IV NR ×11 (20:00)
[2021-02-13 22:00] VITALS: BP 100/58
[2021-02-13] MEDS ORDERED: traZODone HCL 50 MG TAB PEG SCH (22:00)
== END 2021-02-13 23:20 | disposition home health service (06) | DRG 870 ==
LOC: ER 09:03 → EDUNIT# 09:03 → EDBD 09:03 → TELE 13:05 → DOU IN ICU 02-07 18:09 → WEST WING 02-07 22:50 → TELE-WESTW 02-08 23:32
PROVIDERS: ADMIT Internal Medicine; ATTEND Internal Medicine
PROC: 5A1955Z Respiratory Ventilation, Greater than 96 Consecutive Hours (ICD-10-PCS; principal; 2021-02-06)
DX: A41.52 Sepsis due to Pseudomonas (principal); J15.1 Pneumonia due to Pseudomonas; J96.21 Acute and chronic respiratory failure with hypoxia; J44.0 Chronic obstructive pulmonary disease with (acute) lower respiratory infection; N39.0 Urinary tract infection, site not specified; B49 Unspecified mycosis; Z99.11 Dependence on respirator [ventilator] status; I38 Endocarditis, valve unspecified; Z20.822 Contact with and (suspected) exposure to COVID-19; Z66 Do not resuscitate; F41.9 Anxiety disorder, unspecified; G47.00 Insomnia, unspecified; G89.4 Chronic pain syndrome; E87.6 Hypokalemia; B96.5 Pseudomonas (aeruginosa) (mallei) (pseudomallei) as the cause of diseases classified elsewhere; D64.9 Anemia, unspecified; G71.01 Duchenne or Becker muscular dystrophy; K21.9 Gastro-esophageal reflux disease without esophagitis; K80.20 Calculus of gallbladder without cholecystitis without obstruction; Z88.2 Allergy status to sulfonamides; Z88.1 Allergy status to other antibiotic agents; Z88.8 Allergy status to other drugs, medicaments and biological substances; Z93.0 Tracheostomy status; Z87.440 Personal history of urinary (tract) infections; Z86.14 Personal history of Methicillin resistant Staphylococcus aureus infection; Z83.3 Family history of diabetes mellitus; Z86.718 Personal history of other venous thrombosis and embolism; Z79.899 Other long term (current) drug therapy
CPT/HCPCS: 36415; 71045; 80053; 81001; 82040; 82962; 83605; 83735; 83880; 84100; 84478; 84484; 85025; 85049; 85610; 85730; 86850; 86900; 86901; 87040; 87070; 87077; 87081; 87086; 87088; 87186; 87205; 87426; 93005; 94002; 94003; 94640; 96361; 96365; A4605; C9113; G0378; J1335; J2001; J2185; J2248

== ENCOUNTER 2021-12-26 01:13 | Inpatient (IN) | payer MEDICARE, MEDICAID ==
[2021-12-26] VITALS (20 sets, daily range): BP systolic 133–167; BP diastolic 78–94
[~2021-12-26] VITALS: Ht 139.7 cm; Wt 65.7 kg
[~2021-12-26 01:13] MED LIST changes: -ALPR0.5T GT; +ALPR0.5T8 PO; +ASPI1TAB20 PO; -CLON0.1T PO; +FERR65TA12 PO; -LEVO500T31 GT; -MORP1TAB14 PO; +MORP30TA5 PO; +OXYC325T10 PO; -PANTPAK IV; -PERCOT PO; +POM; +[UNRECOGNIZED DRUG - CODE] IV
[2021-12-26] MEDS ORDERED: CALCIUM CHL 100MG/ML 1,000 MG in D5W 5% 100 ML IV ONE (03:00)
[2021-12-26 03:06] LABS: Basophils # (auto) 0 10 ^3/uL (0-0.2); Basophils % (auto) 0.2 % (0.0-2.0); Eosinophils # (auto) 0.1 10 ^3/uL (0-0.8); Eosinophils % (auto) 0.8 % (0.0-7.0); Hematocrit 30.4 % (41.0-53.0); Hemoglobin 8.2 g/dL (13.5-17.5); Lymphocytes # (auto) 0.5 10 ^3/uL (0.4-5.4); Lymphocytes % (auto) 3.8 % (10.0-50.0); Mean Corpuscular Hemoglobin 20.3 pg (28.0-32.0); Mean Corpuscular Hgb Conc. 26.8 g/dL (32.0-36.0); Mean Corpuscular Volume 75.6 fL (80.0-100.0); Monocytes # (auto) 0.7 10 ^3/uL (0-1.3); Monocytes % (auto) 5.3 % (0.0-12.0); Neutrophils # (auto) 11.3 10 ^3/uL (1.6-8.6); Neutrophils % (auto) 89.9 % (37.0-80.0); Red Blood Cells 4.02 10^6/uL (4.5-5.90); Red Cell Distribution Width 19.6 % (11.8-14.3); White Blood Cell 12.6 10^3/uL (4.4-10.8)
[2021-12-26] MEDS ORDERED: CALCIUM CHLOR(10%) 100MG/ML 10ML SYRINGE IV ONE (03:31)
[2021-12-26] MEDS ORDERED: CALCIUM GLUC 1,000mg/50ml-NS 50 ML IV ONE (03:45)
[2021-12-26 03:58] LABS: Albumin 2.8 g/dL (3.4-5.0); Calcium 8.9 mg/dL (8.5-10.1)
[2021-12-26] MEDS ORDERED: VANCOMYCIN 1GM/250ML 250 ML IV ONE (04:00)
[2021-12-26] MEDS ORDERED: PIPERACILLIN-TAZOB 3.375GM 100 ML IV ONE (04:00)
[2021-12-26] MEDS ORDERED: MORPHINE SULFATE 4 MG/ML SYR/VIAL IV ONE (04:00)
[2021-12-26 04:01] LABS: Bilirubin, Total 1.7 mg/dL (0.2-1.0); Total Protein 7.8 g/dL (6.4-8.2)
[2021-12-26 04:39] LABS: Urine Amorphous Crystal MOD /hpf (None Seen); Urine Bacteria NONE SEEN /hpf (None Seen); Urine Blood Negative /uL (Negative); Urine Specific Gravity 1.018 (1.001-1.035); Urine WBC 11 /hpf (0 - 3)
[2021-12-26] MEDS ORDERED: ONDANSETRON HCL 4 MG/2 ML VIAL IV PRN (10:00)
[2021-12-26] MEDS ORDERED: IPRATROPIUM BROM 0.5 MG/2.5ML INH SOL NEB PRN (10:00)
[2021-12-26] MEDS ORDERED: ALBUTEROL SULF 2.5 MG/0.5ML(0.5%) NEB SOLN NEB PRN (10:00)
[2021-12-26] MEDS ORDERED: IPRATROPIUM BROM 0.5 MG/2.5ML INH SOL ONE (10:34)
[2021-12-26] MEDS ORDERED: ALBUTEROL SULF 2.5 MG/0.5ML(0.5%) NEB SOLN ONE (10:34)
[2021-12-26] MEDS ORDERED: ALPRAZolam 0.5 MG TAB PO PRN (10:45)
[2021-12-26] MEDS: ENOXAPARIN SOD 40 MG/0.4 ML SYRINGE SC SCH (11:04)
[2021-12-26] MEDS: MORPHINE SULFATE INJ 2 MG/ml SYRG IV PRN ×3 (11:06→22:22)
[2021-12-26] MEDS ORDERED: LORazepam 2MG/ML-1ML VIAL IV ONE (11:30)
[2021-12-26] MEDS: SODIUM CHLORIDE 0.9% 1,000 ML IV SCH (11:44)
[2021-12-26] MEDS: ALBUTEROL SULF 2.5 MG/0.5ML(0.5%) NEB SOLN NEB SCH ×2 (12:30→18:15)
[2021-12-26] MEDS: IPRATROPIUM BROM 0.5 MG/2.5ML INH SOL NEB SCH ×2 (12:30→18:15)
[2021-12-26] MEDS ORDERED: TPN PER PHARMACY 0 ML IV SCH (14:30)
[2021-12-26] MEDS: MEROPENEM 1GM IVPB 100 ML IV SCH ×2 (14:45→23:48)
[2021-12-26 15:19] LABS: Magnesium 2.1 mg/dL (1.6-2.6); Phosphorus 1.8 mg/dL (2.5-4.90)
[2021-12-26] MEDS ORDERED: AMINO ACID INFUSION IN D5W 1,000 ML IV NR (20:00)
[2021-12-26] MEDS ORDERED: SODIUM PHOSPHATES 20 MEQ in SODIUM CHL 0.9% 100 ML IV ONE (20:00)
[2021-12-27] VITALS (35 sets, daily range): BP systolic 106–172; BP diastolic 72–109
[2021-12-27] MEDS ORDERED: DEXTROSE (50%) 50ML SYRG IV SCH
[2021-12-27] MEDS: ACCU-CHEK COMFORT CURVE STRIP VI SCH ×4 (00:19→17:59)
[2021-12-27] MEDS ORDERED: MORPHINE SULFATE INJ 2 MG/ml SYRG ONE (03:59)
[2021-12-27] MEDS: MORPHINE SULFATE INJ 2 MG/ml SYRG IV PRN ×5 (04:14→20:12)
[2021-12-27 04:52] LABS: Basophils # (auto) 0 10 ^3/uL (0-0.2); Eosinophils # (auto) 0 10 ^3/uL (0-0.8); Eosinophils % (auto) 0.2 % (0.0-7.0); Monocytes # (auto) 0.9 10 ^3/uL (0-1.3)
[2021-12-27 04:55] LABS: Hematocrit 35.7 % (41.0-53.0); Hemoglobin 11.4 g/dL (13.5-17.5); Lymphocytes # (auto) 0.5 10 ^3/uL (0.4-5.4); Lymphocytes % (auto) 4.1 % (10.0-50.0); Mean Corpuscular Hemoglobin 21.9 pg (28.0-32.0); Mean Corpuscular Volume 68.4 fL (80.0-100.0); Monocytes % (auto) 7.3 % (0.0-12.0); Neutrophils # (auto) 10.7 10 ^3/uL (1.6-8.6); Neutrophils % (auto) 88.4 % (37.0-80.0); Nucleated Red Blood Cells % 0.1 %; Red Blood Cells 5.21 10^6/uL (4.5-5.90); Red Cell Distribution Width 18.6 % (11.8-14.3); White Blood Cell 12.1 10^3/uL (4.4-10.8)
[2021-12-27 05:12] LABS: Alanine Aminotransferase 70 U/L (16-61); Albumin 2.4 g/dL (3.4-5.0); Anion Gap 5 (5-15); Aspartate Aminotransferase 77 U/L (15-37); Blood Urea Nitrogen 18 mg/dL (7-18); Calcium 8.7 mg/dL (8.5-10.1); Carbon Dioxide 21 mmol/L (21-32); Chloride 112 mmol/L (98-107); Glucose 110 mg/dL (74-106); Potassium 4.7 mmol/L (3.5-5.1); Sodium 138 mmol/L (136-145)
[2021-12-27] MEDS: SODIUM CHLORIDE 0.9% 1,000 ML IV SCH ×2 (05:14→06:49)
[2021-12-27 05:15] LABS: Alkaline Phosphatase 271 U/L (45-117); Bilirubin, Total 1.3 mg/dL (0.2-1.0); Cholesterol 96 mg/dL (< 200); GFR African American 916 mL/min; GFR Non-African American 757 mL/min; HDL Cholesterol 22 mg/dL (40-59); LDL Cholesterol 62 mg/dL (< 100); Total Protein 7.3 g/dL (6.4-8.2); Triglycerides 108 mg/dL (< 150)
[2021-12-27] MEDS: InsuLIN REG 1unit/0.01ml Soln (100units/ml) SC SCH ×4 (06:00→17:59)
[2021-12-27] MEDS: MEROPENEM 1GM IVPB 100 ML IV SCH ×3 (06:50→22:19)
[2021-12-27] MEDS: IPRATROPIUM BROM 0.5 MG/2.5ML INH SOL NEB SCH ×3 (06:52→18:26)
[2021-12-27] MEDS: ALBUTEROL SULF 2.5 MG/0.5ML(0.5%) NEB SOLN NEB SCH ×3 (06:52→18:26)
[2021-12-27] MEDS ORDERED: FUROSEMIDE 20 MG/2 ML VIAL IV SCH (10:00)
[2021-12-27] MEDS ORDERED: FUROSEMIDE 40 MG/4 ML VIAL IV SCH (10:00)
[2021-12-27] MEDS: ENOXAPARIN SOD 40 MG/0.4 ML SYRINGE SC SCH (10:30)
[2021-12-27] MEDS ORDERED: VANCOMYCIN 1GM/250ML 250 ML IV ONE (10:45)
[2021-12-27] MEDS ORDERED: VANCOMYCIN PER PHARMACY 0 MG IV SCH (10:45)
[2021-12-27 11:46] LABS: INR 1.37 (0.9-1.15); Partial Thromboplastin Time 27.8 sec (23.6-33.0)
[2021-12-27] MEDS ORDERED: SODIUM PHOSPHATES 24 MEQ in SODIUM CHL 0.9% 100 ML IV ONE (12:15)
[2021-12-27] MEDS: LORazepam 2MG/ML-1ML VIAL IV PRN ×2 (15:21→21:35)
[2021-12-27] MEDS: FUROSEMIDE 40 MG/4 ML VIAL IV SCH (16:16)
[2021-12-27] MEDS ORDERED: TPN PER PHARMACY IV NR ×9 (20:00)
[2021-12-27] MEDS: MUPIROCIN 2% OINT 15gm or 22gm EACHNOSTRI SCH (21:35)
[2021-12-28] VITALS (27 sets, daily range): BP systolic 129–168; BP diastolic 70–86
[2021-12-28] MEDS ORDERED: ACETYLCYSTEINE 10 %(100MG/ML) SOL 4ML NEB SCH
[2021-12-28] MEDS: VANCOMYCIN 1GM/250ML 250 ML IV SCH ×2 (00:09→12:07)
[2021-12-28] MEDS: MORPHINE SULFATE INJ 2 MG/ml SYRG IV PRN ×5 (00:11→21:53)
[2021-12-28] MEDS: ACCU-CHEK COMFORT CURVE STRIP VI SCH ×4 (00:48→18:33)
[2021-12-28] MEDS: LORazepam 2MG/ML-1ML VIAL IV PRN ×3 (04:25→20:40)
[2021-12-28 05:23] LABS: Blood Urea Nitrogen 24 mg/dL (7-18); Chloride 112 mmol/L (98-107); Sodium 140 mmol/L (136-145)
[2021-12-28 05:29] LABS: Alanine Aminotransferase 46 U/L (16-61); Albumin 2.4 g/dL (3.4-5.0); Alkaline Phosphatase 238 U/L (45-117); Anion Gap 6 (5-15); Aspartate Aminotransferase 22 U/L (15-37); Bilirubin, Total 1.1 mg/dL (0.2-1.0); Carbon Dioxide 22 mmol/L (21-32); Glucose 112 mg/dL (74-106); Magnesium 2.1 mg/dL (1.6-2.6); Phosphorus 1.9 mg/dL (2.5-4.90); Total Protein 6.7 g/dL (6.4-8.2)
[2021-12-28] MEDS: IPRATROPIUM BROM 0.5 MG/2.5ML INH SOL NEB SCH ×3 (05:58→18:09)
[2021-12-28] MEDS: ALBUTEROL SULF 2.5 MG/0.5ML(0.5%) NEB SOLN NEB SCH ×3 (05:58→18:09)
[2021-12-28] MEDS: ACETYLCYSTEINE 10 %(100MG/ML) SOL 4ML NEB SCH ×2 (05:59→18:09)
[2021-12-28] MEDS: InsuLIN REG 1unit/0.01ml Soln (100units/ml) SC SCH ×4 (06:00→18:00)
[2021-12-28 06:04] LABS: Potassium 2.7 mmol/L (3.5-5.1)
[2021-12-28 06:05] LABS: GFR African American 916 mL/min; GFR Non-African American 757 mL/min
[2021-12-28] MEDS: MEROPENEM 1GM IVPB 100 ML IV SCH ×3 (07:48→21:55)
[2021-12-28] MEDS: SODIUM CHLORIDE 0.9% 1,000 ML IV SCH ×2 (07:49→15:50)
[2021-12-28] MEDS: POTASSIUM CHL 20MEQ/100ML 100 ML IV SCH ×2 (08:17→10:13)
[2021-12-28] MEDS: SPIRONOLACTONE 25 MG TAB GT ONE ×2 (09:00→10:16)
[2021-12-28] MEDS: POTASSIUM EFFERVESENT TAB 25 MEQ GT SCH ×3 (10:00→21:53)
[2021-12-28] MEDS: FUROSEMIDE 40 MG/4 ML VIAL IV SCH ×2 (10:00→14:41)
[2021-12-28] MEDS: ENOXAPARIN SOD 40 MG/0.4 ML SYRINGE SC SCH (10:16)
[2021-12-28] MEDS: MUPIROCIN 2% OINT 15gm or 22gm EACHNOSTRI SCH (10:56)
[2021-12-28] MEDS ORDERED: POTASSIUM PHOSPHATE 44 MEQ in D5W 5% 250 ML IV ONE (13:00)
[2021-12-28] MEDS ORDERED: TPN PER PHARMACY IV NR ×8 (20:00)
[2021-12-29] VITALS (23 sets, daily range): BP systolic 111–155; BP diastolic 61–94
[2021-12-29] MEDS: VANCOMYCIN 1GM/250ML 250 ML IV SCH
[2021-12-29] MEDS: ACCU-CHEK COMFORT CURVE STRIP VI SCH ×4 (00:54→17:37)
[2021-12-29] MEDS: MUPIROCIN 2% OINT 15gm or 22gm EACHNOSTRI SCH ×3 (00:54→21:54)
[2021-12-29 01:18] LABS: Basophils # (auto) 0 10 ^3/uL (0-0.2); Basophils % (auto) 0.5 % (0.0-2.0); Eosinophils # (auto) 0.2 10 ^3/uL (0-0.8); Eosinophils % (auto) 1.8 % (0.0-7.0); Hematocrit 32.8 % (41.0-53.0); Lymphocytes # (auto) 1.2 10 ^3/uL (0.4-5.4); Lymphocytes % (auto) 11.8 % (10.0-50.0); Mean Corpuscular Hemoglobin 20.4 pg (28.0-32.0); Mean Corpuscular Hgb Conc. 30.6 g/dL (32.0-36.0); Mean Corpuscular Volume 66.5 fL (80.0-100.0); Monocytes % (auto) 9.8 % (0.0-12.0); Neutrophils # (auto) 7.6 10 ^3/uL (1.6-8.6); Neutrophils % (auto) 76.1 % (37.0-80.0); Nucleated Red Blood Cells % 0.3 %; Red Blood Cells 4.93 10^6/uL (4.5-5.90); Red Cell Distribution Width 18.3 % (11.8-14.3)
[2021-12-29 01:24] LABS: Albumin 2.5 g/dL (3.4-5.0); Anion Gap 7 (5-15); Blood Urea Nitrogen 21 mg/dL (7-18); Calcium 8.4 mg/dL (8.5-10.1); Carbon Dioxide 25 mmol/L (21-32); Chloride 108 mmol/L (98-107); GFR African American 916 mL/min; GFR Non-African American 757 mL/min; Glucose 107 mg/dL (74-106); Sodium 140 mmol/L (136-145)
[2021-12-29 01:35] LABS: Alanine Aminotransferase 56 U/L (16-61); Alkaline Phosphatase 263 U/L (45-117); Aspartate Aminotransferase 40 U/L (15-37); Bilirubin, Total 0.9 mg/dL (0.2-1.0); Total Protein 6.9 g/dL (6.4-8.2)
[2021-12-29] MEDS: MORPHINE SULFATE INJ 2 MG/ml SYRG IV PRN ×4 (02:08→21:52)
[2021-12-29] MEDS: SODIUM CHLORIDE 0.9% 1,000 ML IV SCH (05:10)
[2021-12-29] MEDS: ALBUTEROL SULF 2.5 MG/0.5ML(0.5%) NEB SOLN NEB SCH ×3 (05:55→17:47)
[2021-12-29] MEDS: ACETYLCYSTEINE 10 %(100MG/ML) SOL 4ML NEB SCH ×3 (05:57→17:48)
[2021-12-29] MEDS: MEROPENEM 1GM IVPB 100 ML IV SCH (05:58)
[2021-12-29] MEDS: InsuLIN REG 1unit/0.01ml Soln (100units/ml) SC SCH ×4 (06:00→17:37)
[2021-12-29] MEDS: IPRATROPIUM BROM 0.5 MG/2.5ML INH SOL NEB SCH ×3 (06:06→17:46)
[2021-12-29] MEDS ORDERED: SODIUM CHLORIDE 0.9 % NEB SOLN 3ML NEB ONE (09:54)
[2021-12-29] MEDS: POTASSIUM EFFERVESENT TAB 25 MEQ GT SCH ×2 (10:00→20:34)
[2021-12-29] MEDS ORDERED: SODIUM CHLORIDE 0.9% 1,000 ML IV SCH (10:45)
[2021-12-29] MEDS ORDERED: PANTOPRAZOLE 40 MG/10 ML VIAL INJ IV ONE (11:30)
[2021-12-29] MEDS: ALPRAZolam 0.5 MG TAB PO PRN (11:58)
[2021-12-29] MEDS: ENOXAPARIN SOD 40 MG/0.4 ML SYRINGE SC SCH (11:59)
[2021-12-29] MEDS: OXYCODONE W/ ACETAMINOPHEN 5/325MG TABLET PO PRN (11:59)
[2021-12-29] MEDS: FUROSEMIDE 40 MG/4 ML VIAL IV SCH (11:59)
[2021-12-29] MEDS: CEFEPIME 2 GM in SODIUM CHL 0.9% 50 ML IV SCH ×2 (15:30→21:51)
[2021-12-29 17:07] LABS: Potassium 3.3 mmol/L (3.5-5.1)
[2021-12-29 17:12] LABS: Magnesium 2.1 mg/dL (1.6-2.6); Phosphorus 1.7 mg/dL (2.5-4.90)
[2021-12-29] MEDS ORDERED: TPN PER PHARMACY IV NR ×8 (20:00)
[2021-12-30] VITALS (26 sets, daily range): BP systolic 107–158; BP diastolic 62–90
[2021-12-30] MEDS: ACCU-CHEK COMFORT CURVE STRIP VI SCH ×4 (00:19→18:07)
[2021-12-30] MEDS: ALPRAZolam 0.5 MG TAB PO PRN ×2 (00:20→12:33)
[2021-12-30] MEDS: OXYCODONE W/ ACETAMINOPHEN 5/325MG TABLET PO PRN ×2 (00:21→08:03)
[2021-12-30] MEDS: MORPHINE SULFATE INJ 2 MG/ml SYRG IV PRN ×2 (04:31→12:24)
[2021-12-30] MEDS: InsuLIN REG 1unit/0.01ml Soln (100units/ml) SC SCH ×4 (06:00→18:00)
[2021-12-30] MEDS: IPRATROPIUM BROM 0.5 MG/2.5ML INH SOL NEB SCH ×3 (06:09→18:24)
[2021-12-30] MEDS: ALBUTEROL SULF 2.5 MG/0.5ML(0.5%) NEB SOLN NEB SCH ×3 (06:09→18:24)
[2021-12-30] MEDS: ACETYLCYSTEINE 10 %(100MG/ML) SOL 4ML NEB SCH ×3 (06:10→18:24)
[2021-12-30] MEDS: CEFEPIME 2 GM in SODIUM CHL 0.9% 50 ML IV SCH ×3 (06:36→21:16)
[2021-12-30 07:28] LABS: Albumin 2.3 g/dL (3.4-5.0); Anion Gap 5 (5-15); Blood Urea Nitrogen 26 mg/dL (7-18); Calcium 8.2 mg/dL (8.5-10.1); Carbon Dioxide 26 mmol/L (21-32); Chloride 110 mmol/L (98-107); Glucose 97 mg/dL (74-106); Magnesium 2.4 mg/dL (1.6-2.6); Potassium 3.6 mmol/L (3.5-5.1); Sodium 141 mmol/L (136-145)
[2021-12-30 07:32] LABS: Alanine Aminotransferase 78 U/L (16-61); Alkaline Phosphatase 284 U/L (45-117); Aspartate Aminotransferase 63 U/L (15-37); Phosphorus 1.4 mg/dL (2.5-4.90); Total Protein 6.8 g/dL (6.4-8.2)
[2021-12-30 08:01] LABS: BUN/Creatinine Ratio 173.3; GFR African American 916 mL/min; GFR Non-African American 757 mL/min
[2021-12-30] MEDS ORDERED: POTASSIUM PHOSPHATE 44 MEQ in D5W 5% 250 ML IV ONE (09:00)
[2021-12-30] MEDS: POTASSIUM EFFERVESENT TAB 25 MEQ GT SCH ×2 (09:45→22:00)
[2021-12-30] MEDS: FUROSEMIDE 40 MG/4 ML VIAL IV SCH (09:57)
[2021-12-30] MEDS: PANTOPRAZOLE 40 MG/10 ML VIAL INJ IV SCH (09:57)
[2021-12-30] MEDS: ENOXAPARIN SOD 40 MG/0.4 ML SYRINGE SC SCH (09:58)
[2021-12-30] MEDS: MUPIROCIN 2% OINT 15gm or 22gm EACHNOSTRI SCH ×2 (09:59→22:23)
[2021-12-30] MEDS ORDERED: TPN PER PHARMACY IV NR ×8 (20:00)
[2021-12-31] VITALS (7 sets, daily range): BP systolic 100–120; BP diastolic 63–71
[2021-12-31] MEDS: MORPHINE SULFATE INJ 2 MG/ml SYRG IV PRN ×5 (00:25→22:20)
[2021-12-31] MEDS: LORazepam 2MG/ML-1ML VIAL IV PRN ×2 (00:55→17:11)
[2021-12-31] MEDS: OXYCODONE W/ ACETAMINOPHEN 5/325MG TABLET PO PRN (05:09)
[2021-12-31] MEDS: CEFEPIME 2 GM in SODIUM CHL 0.9% 50 ML IV SCH ×3 (05:17→22:35)
[2021-12-31] MEDS: InsuLIN REG 1unit/0.01ml Soln (100units/ml) SC SCH ×4 (06:00→17:11)
[2021-12-31] MEDS: ACCU-CHEK COMFORT CURVE STRIP VI SCH ×4 (06:04→17:11)
[2021-12-31] MEDS: ACETYLCYSTEINE 10 %(100MG/ML) SOL 4ML NEB SCH ×3 (06:44→18:11)
[2021-12-31] MEDS: IPRATROPIUM BROM 0.5 MG/2.5ML INH SOL NEB SCH ×3 (06:44→18:10)
[2021-12-31] MEDS: ALBUTEROL SULF 2.5 MG/0.5ML(0.5%) NEB SOLN NEB SCH ×3 (06:44→18:10)
[2021-12-31] MEDS ORDERED: POTASSIUM PHOSPHATE 44 MEQ in D5W 5% 250 ML IV ONE (09:15)
[2021-12-31 09:53] LABS: Albumin 2.3 g/dL (3.4-5.0); Anion Gap 5 (5-15); Blood Urea Nitrogen 28 mg/dL (7-18); Calcium 8.3 mg/dL (8.5-10.1); Carbon Dioxide 28 mmol/L (21-32); Chloride 106 mmol/L (98-107); Glucose 100 mg/dL (74-106); Magnesium 2.3 mg/dL (1.6-2.6); Potassium 4.2 mmol/L (3.5-5.1); Sodium 139 mmol/L (136-145)
[2021-12-31 09:56] LABS: Alanine Aminotransferase 72 U/L (16-61); Alkaline Phosphatase 266 U/L (45-117); Aspartate Aminotransferase 61 U/L (15-37); Bilirubin, Total 1.1 mg/dL (0.2-1.0); Phosphorus 2.4 mg/dL (2.5-4.90)
[2021-12-31 09:59] LABS: BUN/Creatinine Ratio 186.7; GFR African American 916 mL/min; GFR Non-African American 757 mL/min
[2021-12-31] MEDS: POTASSIUM EFFERVESENT TAB 25 MEQ GT SCH ×2 (10:00→22:00)
[2021-12-31] MEDS: PANTOPRAZOLE 40 MG/10 ML VIAL INJ IV SCH (10:18)
[2021-12-31] MEDS: MUPIROCIN 2% OINT 15gm or 22gm EACHNOSTRI SCH ×2 (10:18→22:00)
[2021-12-31] MEDS: ENOXAPARIN SOD 40 MG/0.4 ML SYRINGE SC SCH (10:18)
[2021-12-31] MEDS: FUROSEMIDE 40 MG/4 ML VIAL IV SCH (10:20)
[2021-12-31] MEDS ORDERED: TPN PER PHARMACY IV NR ×8 (20:00)
[2022-01-01] MEDS: LORazepam 2MG/ML-1ML VIAL IV PRN ×2 (00:09→10:23)
[2022-01-01] MEDS: ACCU-CHEK COMFORT CURVE STRIP VI SCH ×2 (00:21→06:11)
[2022-01-01] MEDS: MORPHINE SULFATE INJ 2 MG/ml SYRG IV PRN ×2 (03:12→08:05)
[2022-01-01 05:00] VITALS: BP 118/65
[2022-01-01] MEDS: InsuLIN REG 1unit/0.01ml Soln (100units/ml) SC SCH ×2 (05:30)
[2022-01-01] MEDS: CEFEPIME 2 GM in SODIUM CHL 0.9% 50 ML IV SCH (05:31)
[2022-01-01] MEDS: IPRATROPIUM BROM 0.5 MG/2.5ML INH SOL NEB SCH (06:43)
[2022-01-01] MEDS: ACETYLCYSTEINE 10 %(100MG/ML) SOL 4ML NEB SCH (06:43)
[2022-01-01] MEDS: ALBUTEROL SULF 2.5 MG/0.5ML(0.5%) NEB SOLN NEB SCH (06:43)
[2022-01-01 08:30] VITALS: BP 125/72
[2022-01-01] MEDS: MUPIROCIN 2% OINT 15gm or 22gm EACHNOSTRI SCH (08:59)
[2022-01-01] MEDS: POTASSIUM EFFERVESENT TAB 25 MEQ GT SCH (10:00)
[2022-01-01 10:10] VITALS: BP 125/72
[2022-01-01] MEDS: PANTOPRAZOLE 40 MG/10 ML VIAL INJ IV SCH (10:22)
[2022-01-01] MEDS: FUROSEMIDE 40 MG/4 ML VIAL IV SCH (10:22)
[2022-01-01] MEDS: ENOXAPARIN SOD 40 MG/0.4 ML SYRINGE SC SCH (10:23)
== END 2022-01-01 11:57 | disposition home health service (06) | DRG 871 ==
LOC: EDBD 01:13 → ER 01:16 → TELE 09:55 → DOU IN ICU 21:30 → TELE-WESTW 12-30 20:20 → UNDODISIN 12-31 19:42
PROVIDERS: ADMIT Registered Nurse; ATTEND Internal Medicine
PROC: 5A1945Z Respiratory Ventilation, 24-96 Consecutive Hours (ICD-10-PCS; principal; 2021-12-26)
DX: A41.52 Sepsis due to Pseudomonas (principal); J15.1 Pneumonia due to Pseudomonas; J96.21 Acute and chronic respiratory failure with hypoxia; E43 Unspecified severe protein-calorie malnutrition; J98.11 Atelectasis; N39.0 Urinary tract infection, site not specified; J44.0 Chronic obstructive pulmonary disease with (acute) lower respiratory infection; Z99.11 Dependence on respirator [ventilator] status; J95.851 Ventilator associated pneumonia; D64.9 Anemia, unspecified; E87.6 Hypokalemia; G71.01 Duchenne or Becker muscular dystrophy; Z66 Do not resuscitate; G89.29 Other chronic pain; F41.9 Anxiety disorder, unspecified; K21.9 Gastro-esophageal reflux disease without esophagitis; R80.9 Proteinuria, unspecified; E11.40 Type 2 diabetes mellitus with diabetic neuropathy, unspecified; E11.21 Type 2 diabetes mellitus with diabetic nephropathy; Z20.822 Contact with and (suspected) exposure to COVID-19; Z93.0 Tracheostomy status; Z93.1 Gastrostomy status; Z83.3 Family history of diabetes mellitus; Z79.899 Other long term (current) drug therapy; Z86.79 Personal history of other diseases of the circulatory system; Z88.1 Allergy status to other antibiotic agents; Z88.2 Allergy status to sulfonamides; Z88.8 Allergy status to other drugs, medicaments and biological substances
CPT/HCPCS: 36415; 71045; 76705; 80053; 80061; 80202; 81001; 82962; 83735; 83880; 84100; 84132; 84478; 84484; 85025; 85379; 85610; 85730; 87040; 87070; 87077; 87081; 87086; 87186; 87205; 93005; 94002; 94003; 94640; 96365; 96366; 96367; 96372; 96375; 99291; A4605; C9113; G0378; J1815; J2185; J2543; J3480; J7060

== ENCOUNTER 2022-01-04 21:21 | Inpatient (IN) | payer MEDICARE, MEDICAID ==
[~2022-01-04] VITALS: Ht 162.6 cm; Wt 77.1 kg
[2022-01-04 23:45] LABS: Basophils # (auto) 0 10 ^3/uL (0-0.2); Lymphocytes # (auto) 0.3 10 ^3/uL (0.4-5.4); Lymphocytes % (auto) 2.4 % (10.0-50.0); Mean Corpuscular Volume 68.2 fL (80.0-100.0); White Blood Cell 10.8 10^3/uL (4.4-10.8)
[2022-01-04 23:46] LABS: Basophils % (auto) 0.4 % (0.0-2.0); Eosinophils # (auto) 0.1 10 ^3/uL (0-0.8); Eosinophils % (auto) 0.7 % (0.0-7.0); Hematocrit 27.2 % (41.0-53.0); Hemoglobin 8.5 g/dL (13.5-17.5); Mean Corpuscular Hemoglobin 21.4 pg (28.0-32.0); Mean Corpuscular Hgb Conc. 31.3 g/dL (32.0-36.0); Monocytes # (auto) 0.4 10 ^3/uL (0-1.3); Monocytes % (auto) 3.2 % (0.0-12.0); Neutrophils # (auto) 10.1 10 ^3/uL (1.6-8.6); Neutrophils % (auto) 93.3 % (37.0-80.0); Red Blood Cells 3.98 10^6/uL (4.5-5.90)
[2022-01-05] VITALS (11 sets, daily range): BP systolic 101–173; BP diastolic 64–93
[2022-01-05 00:04] LABS: Albumin 2.3 g/dL (3.4-5.0); Anion Gap 8 (5-15); Blood Urea Nitrogen 14 mg/dL (7-18); Calcium 8.5 mg/dL (8.5-10.1); Carbon Dioxide 25 mmol/L (21-32); Chloride 105 mmol/L (98-107); Glucose 108 mg/dL (74-106); Potassium 3.6 mmol/L (3.5-5.1); Sodium 138 mmol/L (136-145)
[2022-01-05 00:06] LABS: GFR African American 916 mL/min; GFR Non-African American 757 mL/min
[2022-01-05 00:08] LABS: Alanine Aminotransferase 59 U/L (16-61); Alkaline Phosphatase 222 U/L (45-117); Aspartate Aminotransferase 41 U/L (15-37); Bilirubin, Total 1.2 mg/dL (0.2-1.0); Total Protein 7.1 g/dL (6.4-8.2)
[2022-01-05 00:12] LABS: BUN/Creatinine Ratio 93.3
[2022-01-05] MEDS ORDERED: LORazepam 2MG/ML-1ML VIAL IV ONE (00:15)
[2022-01-05] MEDS ORDERED: VANCOMYCIN 1GM/250ML 250 ML IV ONE ×2 (01:30→08:00)
[2022-01-05] MEDS ORDERED: PIPERACILLIN-TAZOB 3.375GM 100 ML IV ONE (01:30)
[2022-01-05] MEDS ORDERED: NITROGLYCERIN 0.4 MG SL TAB SL PRN (06:15)
[2022-01-05] MEDS ORDERED: HYDROcodone-ACET 5/325MG TAB PO PRN (06:15)
[2022-01-05] MEDS ORDERED: MORPHINE SULFATE INJ 2 MG/ml SYRG IV PRN ×2 (06:15→12:45)
[2022-01-05] MEDS ORDERED: ONDANSETRON HCL 4 MG/2 ML VIAL IV PRN (06:15)
[2022-01-05] MEDS ORDERED: AZITHROMYCIN 500MG/ 250ML 250 ML IV SCH (06:27)
[2022-01-05] MEDS ORDERED: cefTRIAXone 1GM/50ML D5W 50 ML IV SCH (06:27)
[2022-01-05] MEDS ORDERED: FUROSEMIDE 20 MG TAB PO SCH (10:00)
[2022-01-05] MEDS: PANTOPRAZOLE 40 MG/10 ML VIAL INJ IV SCH (11:05)
[2022-01-05] MEDS: ENOXAPARIN SOD 40 MG/0.4 ML SYRINGE SC SCH (11:05)
[2022-01-05] MEDS ORDERED: FUROSEMIDE 20 MG/2 ML VIAL IV ONE (13:30)
[2022-01-05] MEDS ORDERED: VANCOMYCIN PER PHARMACY 0 MG IV SCH (16:15)
[2022-01-05] MEDS: CEFEPIME 1GM/ 50ML 50 ML IV ONE ×2 (16:15→16:48)
[2022-01-05] MEDS: MORPHINE SULFATE INJ 2 MG/ml SYRG IV PRN ×2 (16:50→23:00)
[2022-01-05] MEDS ORDERED: TEMAZEPAM 15 MG CAP PO ONE (21:30)
[2022-01-05] MEDS: CEFEPIME 1GM/ 50ML 50 ML IV SCH (21:44)
[2022-01-06] VITALS (7 sets, daily range): BP systolic 97–124; BP diastolic 43–71
[2022-01-06] MEDS: MORPHINE SULFATE INJ 2 MG/ml SYRG IV PRN ×3 (00:27→18:43)
[2022-01-06] MEDS ORDERED: VANCOMYCIN 1GM/250ML 250 ML IV ONE (02:00)
[2022-01-06] MEDS: CEFEPIME 1GM/ 50ML 50 ML IV SCH (06:50)
[2022-01-06 08:59] LABS: Basophils # (auto) 0 10 ^3/uL (0-0.2); Eosinophils # (auto) 0.2 10 ^3/uL (0-0.8); Hematocrit 27.5 % (41.0-53.0); Hemoglobin 8.4 g/dL (13.5-17.5); Lymphocytes # (auto) 0.6 10 ^3/uL (0.4-5.4)
[2022-01-06 09:02] LABS: Basophils % (auto) 0.2 % (0.0-2.0); Eosinophils % (auto) 2.5 % (0.0-7.0); Lymphocytes % (auto) 7.7 % (10.0-50.0); Mean Corpuscular Hgb Conc. 30.7 g/dL (32.0-36.0); Mean Corpuscular Volume 68.5 fL (80.0-100.0); Monocytes # (auto) 0.8 10 ^3/uL (0-1.3); Monocytes % (auto) 10.3 % (0.0-12.0); Neutrophils # (auto) 5.9 10 ^3/uL (1.6-8.6); Neutrophils % (auto) 79.3 % (37.0-80.0); Nucleated Red Blood Cells % 0.2 %; Red Blood Cells 4.01 10^6/uL (4.5-5.90); Red Cell Distribution Width 19.3 % (11.8-14.3); White Blood Cell 7.4 10^3/uL (4.4-10.8)
[2022-01-06 09:15] LABS: Chloride 109 mmol/L (98-107); Potassium 3.8 mmol/L (3.5-5.1); Sodium 139 mmol/L (136-145)
[2022-01-06 09:21] LABS: Alanine Aminotransferase 39 U/L (16-61); Albumin 2.3 g/dL (3.4-5.0); Alkaline Phosphatase 204 U/L (45-117); Anion Gap 7 (5-15); Aspartate Aminotransferase 21 U/L (15-37); Bilirubin, Total 1.3 mg/dL (0.2-1.0); Blood Urea Nitrogen 16 mg/dL (7-18); Calcium 8.6 mg/dL (8.5-10.1); Carbon Dioxide 23 mmol/L (21-32); Glucose 67 mg/dL (74-106)
[2022-01-06] MEDS: PANTOPRAZOLE 40 MG/10 ML VIAL INJ IV SCH (09:30)
[2022-01-06] MEDS: ENOXAPARIN SOD 40 MG/0.4 ML SYRINGE SC SCH (09:30)
[2022-01-06] MEDS: ACETAMINOPHEN 325 MG TAB PO PRN (09:31)
[2022-01-06 09:51] LABS: BUN/Creatinine Ratio 106.7; GFR African American 916 mL/min; GFR Non-African American 757 mL/min
[2022-01-06] MEDS: FUROSEMIDE 20 MG/2 ML VIAL IV SCH (10:00)
[2022-01-06] MEDS ORDERED: MORPHINE SULF 30 mg ER tab PO ONE (10:45)
[2022-01-06] MEDS ORDERED: TPN PER PHARMACY 0 ML IV SCH (10:45)
[2022-01-06] MEDS: OXYCODONE W/ ACETAMINOPHEN 5/325MG TABLET PO PRN ×2 (11:19→23:00)
[2022-01-06] MEDS: ALPRAZolam 0.5 MG TAB PO PRN (12:21)
[2022-01-06] MEDS ORDERED: SODIUM PHOSPHATES 40 MEQ in D5W 5% 250 ML IV ONE (13:00)
[2022-01-06] MEDS ORDERED: VANCOMYCIN 1GM/250ML 250 ML IV SCH (14:00)
[2022-01-06 14:19] LABS: Urine Bacteria FEW /hpf (None Seen); Urine Blood Negative /uL (Negative); Urine Budding Yeast MODERATE /hpf (None Seen); Urine Mucus FEW (None Seen); Urine Specific Gravity 1.022 (1.001-1.035); Urine Sperm PRESENT /hpf (None Seen); Urine WBC 14 /hpf (0 - 3); Urine WBC Clumps PRESENT /hpf (None Seen)
[2022-01-06] MEDS: CEFTAZIDIME-AVIBACTAM 2.5gm in D5W 100 ML IV SCH ×2 (14:34→22:40)
[2022-01-06] MEDS ORDERED: TPN PER PHARMACY IV NR ×9 (20:00)
[2022-01-06] MEDS ORDERED: MORPHINE SULF 30 mg ER tab PO SCH (22:00)
[2022-01-07] VITALS (7 sets, daily range): BP systolic 95–132; BP diastolic 53–60
[2022-01-07] MEDS ORDERED: DEXTROSE (50%) 50ML SYRG IV SCH
[2022-01-07] MEDS: ACCU-CHEK COMFORT CURVE STRIP VI SCH ×4 (00:23→16:50)
[2022-01-07] MEDS: ALBUTEROL SULF 2.5 MG/0.5ML(0.5%) NEB SOLN NEB PRN ×2 (01:14→07:03)
[2022-01-07] MEDS: ALPRAZolam 0.5 MG TAB PO PRN ×2 (02:02→21:57)
[2022-01-07] MEDS: InsuLIN REG 1unit/0.01ml Soln (100units/ml) SC SCH ×4 (06:00→17:00)
[2022-01-07] MEDS: CEFTAZIDIME-AVIBACTAM 2.5gm in D5W 100 ML IV SCH ×3 (06:01→22:00)
[2022-01-07] MEDS: OXYCODONE W/ ACETAMINOPHEN 5/325MG TABLET PO PRN ×3 (06:18→21:57)
[2022-01-07] MEDS: ACETYLCYSTEINE 10 %(100MG/ML) SOL 4ML NEB PRN (07:03)
[2022-01-07 08:08] LABS: Basophils # (auto) 0 10 ^3/uL (0-0.2); Eosinophils # (auto) 0.1 10 ^3/uL (0-0.8); Lymphocytes # (auto) 0.6 10 ^3/uL (0.4-5.4); Monocytes # (auto) 0.5 10 ^3/uL (0-1.3); Neutrophils # (auto) 4.3 10 ^3/uL (1.6-8.6)
[2022-01-07 08:10] LABS: Basophils % (auto) 0.4 % (0.0-2.0); Eosinophils % (auto) 2.4 % (0.0-7.0); Hematocrit 27.7 % (41.0-53.0); Lymphocytes % (auto) 10.8 % (10.0-50.0); Mean Corpuscular Hemoglobin 20.5 pg (28.0-32.0); Mean Corpuscular Hgb Conc. 28.8 g/dL (32.0-36.0); Monocytes % (auto) 9.6 % (0.0-12.0); Neutrophils % (auto) 76.8 % (37.0-80.0); Red Cell Distribution Width 20.1 % (11.8-14.3); White Blood Cell 5.6 10^3/uL (4.4-10.8)
[2022-01-07 08:30] LABS: Potassium 3.3 mmol/L (3.5-5.1)
[2022-01-07 08:38] LABS: Albumin 2.3 g/dL (3.4-5.0); BUN/Creatinine Ratio 95.8; Calcium 8.1 mg/dL (8.5-10.1); Phosphorus 3.9 mg/dL (2.5-4.90); Total Protein 7.3 g/dL (6.4-8.2)
[2022-01-07] MEDS: MORPHINE SULFATE INJ 2 MG/ml SYRG IV PRN ×3 (08:38→16:52)
[2022-01-07] MEDS: FUROSEMIDE 20 MG/2 ML VIAL IV SCH (08:38)
[2022-01-07] MEDS: PANTOPRAZOLE 40 MG/10 ML VIAL INJ IV SCH (08:38)
[2022-01-07] MEDS: ENOXAPARIN SOD 40 MG/0.4 ML SYRINGE SC SCH (08:38)
[2022-01-07] MEDS: POTASSIUM CHL 20MEQ/100ML 100 ML IV SCH ×2 (10:53→11:45)
[2022-01-07] MEDS: TPN PER PHARMACY IV NR ×10 (19:53)
[2022-01-08] MEDS: ACCU-CHEK COMFORT CURVE STRIP VI SCH ×4 (00:11→17:32)
[2022-01-08] MEDS: ACETAMINOPHEN 325 MG TAB PO PRN (02:21)
[2022-01-08 05:00] VITALS: BP 131/67
[2022-01-08] MEDS: InsuLIN REG 1unit/0.01ml Soln (100units/ml) SC SCH ×4 (05:58→17:32)
[2022-01-08] MEDS: CEFTAZIDIME-AVIBACTAM 2.5gm in D5W 100 ML IV SCH (05:59)
[2022-01-08] MEDS: MORPHINE SULFATE INJ 2 MG/ml SYRG IV PRN ×4 (06:01→22:46)
[2022-01-08 08:41] VITALS: BP 113/48
[2022-01-08 09:15] LABS: Albumin 2.1 g/dL (3.4-5.0); Magnesium 2.4 mg/dL (1.6-2.6); Potassium 3.5 mmol/L (3.5-5.1)
[2022-01-08 09:18] LABS: BUN/Creatinine Ratio 103.7; Bilirubin, Total 0.5 mg/dL (0.2-1.0); Phosphorus 2.6 mg/dL (2.5-4.90); Total Protein 7.1 g/dL (6.4-8.2)
[2022-01-08] MEDS: ENOXAPARIN SOD 40 MG/0.4 ML SYRINGE SC SCH (09:41)
[2022-01-08] MEDS: PANTOPRAZOLE 40 MG/10 ML VIAL INJ IV SCH (09:41)
[2022-01-08] MEDS: FUROSEMIDE 20 MG/2 ML VIAL IV SCH (09:41)
[2022-01-08] MEDS ORDERED: POTASSIUM PHOSP 22MEQ(15MMOLE) in NS 100 ML IV ONE (10:30)
[2022-01-08] MEDS: DOXYCYCLINE 100MG/250ML 250 ML IV SCH ×2 (11:32→22:46)
[2022-01-08] MEDS: OXYCODONE W/ ACETAMINOPHEN 5/325MG TABLET PO PRN (11:33)
[2022-01-08 11:44] VITALS: BP 105/56
[2022-01-08] MEDS: ALPRAZolam 0.5 MG TAB PO PRN (12:21)
[2022-01-08 16:33] VITALS: BP 134/73
[2022-01-08] MEDS: TPN PER PHARMACY IV NR ×10 (19:59)
[2022-01-08] MEDS ORDERED: TPN PER PHARMACY IV NR ×10 (20:00)
[2022-01-08] MEDS: ACETYLCYSTEINE 10 %(100MG/ML) SOL 4ML NEB PRN (20:13)
[2022-01-08] MEDS: ALBUTEROL SULF 2.5 MG/0.5ML(0.5%) NEB SOLN NEB PRN (20:13)
[2022-01-08 21:27] VITALS: BP 106/58
[2022-01-08 22:00] VITALS: BP 117/62
[2022-01-09] MEDS ORDERED: ALPRAZolam 0.5 MG TAB PEG PRN
[2022-01-09] MEDS: ACCU-CHEK COMFORT CURVE STRIP VI SCH ×4 (00:52→18:02)
[2022-01-09] MEDS: OXYCODONE W/ ACETAMINOPHEN 5/325MG TABLET PEG PRN ×2 (00:52→20:58)
[2022-01-09] MEDS: InsuLIN REG 1unit/0.01ml Soln (100units/ml) SC SCH ×4 (01:12→18:00)
[2022-01-09] MEDS: ALBUTEROL SULF 2.5 MG/0.5ML(0.5%) NEB SOLN NEB PRN ×3 (02:59→18:02)
[2022-01-09] MEDS: ACETYLCYSTEINE 10 %(100MG/ML) SOL 4ML NEB PRN ×2 (02:59→18:03)
[2022-01-09] MEDS: MORPHINE SULFATE INJ 2 MG/ml SYRG IV PRN ×3 (03:32→19:43)
[2022-01-09 04:42] VITALS: BP 111/65
[2022-01-09 06:43] LABS: Albumin 2.3 g/dL (3.4-5.0); BUN/Creatinine Ratio 136.8; Bilirubin, Total 0.5 mg/dL (0.2-1.0); Calcium 8.3 mg/dL (8.5-10.1); Magnesium 2.3 mg/dL (1.6-2.6); Phosphorus 2.4 mg/dL (2.5-4.90); Total Protein 7.1 g/dL (6.4-8.2)
[2022-01-09 07:59] VITALS: BP 119/62
[2022-01-09] MEDS: PANTOPRAZOLE 40 MG/10 ML VIAL INJ IV SCH (10:05)
[2022-01-09] MEDS: FUROSEMIDE 20 MG/2 ML VIAL IV SCH (10:05)
[2022-01-09] MEDS: DOXYCYCLINE 100MG/250ML 250 ML IV SCH ×2 (10:06→22:49)
[2022-01-09] MEDS: ENOXAPARIN SOD 40 MG/0.4 ML SYRINGE SC SCH (10:06)
[2022-01-09 12:00] VITALS: BP 119/72
[2022-01-09] MEDS ORDERED: SODIUM PHOSPHATES 20 MEQ in SODIUM CHL 0.9% 100 ML IV ONE (12:00)
[2022-01-09 16:49] VITALS: BP 119/72
[2022-01-09 17:00] VITALS: BP 128/78
[2022-01-09] MEDS ORDERED: TPN PER PHARMACY IV NR ×10 (20:00)
[2022-01-09 21:11] VITALS: BP 107/60
[2022-01-10] MEDS: InsuLIN REG 1unit/0.01ml Soln (100units/ml) SC SCH
[2022-01-10] MEDS: ACCU-CHEK COMFORT CURVE STRIP VI SCH (00:37)
[2022-01-10] MEDS: OXYCODONE W/ ACETAMINOPHEN 5/325MG TABLET PEG PRN (01:58)
[2022-01-10] MEDS: MORPHINE SULFATE INJ 2 MG/ml SYRG IV PRN (04:55)
[2022-01-10 05:01] VITALS: BP 126/66
[2022-01-10 06:06] LABS: Albumin 2.5 g/dL (3.4-5.0); BUN/Creatinine Ratio 147.1; Calcium 8.5 mg/dL (8.5-10.1); Magnesium 2.1 mg/dL (1.6-2.6); Potassium 3.8 mmol/L (3.5-5.1)
[2022-01-10 06:09] LABS: Bilirubin, Total 0.5 mg/dL (0.2-1.0); Phosphorus 3.5 mg/dL (2.5-4.90); Total Protein 7.3 g/dL (6.4-8.2)
== END 2022-01-10 05:30 | disposition home or self-care (01) | DRG 870 ==
LOC: EDBD 21:21 → ER 21:21 → OVERFLOW 01-05 06:02 → TELE-CENTR 01-05 08:37
PROVIDERS: ADMIT Nurse Practitioner; ATTEND Internal Medicine
PROC: 5A1955Z Respiratory Ventilation, Greater than 96 Consecutive Hours (ICD-10-PCS; principal; 2022-01-04)
DX: A41.02 Sepsis due to Methicillin resistant Staphylococcus aureus (principal); J18.9 Pneumonia, unspecified organism; E43 Unspecified severe protein-calorie malnutrition; J96.21 Acute and chronic respiratory failure with hypoxia; Z99.11 Dependence on respirator [ventilator] status; D64.9 Anemia, unspecified; Z66 Do not resuscitate; G71.01 Duchenne or Becker muscular dystrophy; K80.80 Other cholelithiasis without obstruction; Z20.822 Contact with and (suspected) exposure to COVID-19; G89.29 Other chronic pain; F41.9 Anxiety disorder, unspecified; K21.9 Gastro-esophageal reflux disease without esophagitis; Z87.440 Personal history of urinary (tract) infections; Z79.899 Other long term (current) drug therapy; Z68.29 Body mass index [BMI] 29.0-29.9, adult; Z93.0 Tracheostomy status
CPT/HCPCS: 36415; 36600; 71045; 80053; 81001; 82805; 82962; 83735; 84100; 84478; 84484; 85025; 87040; 87070; 87077; 87081; 87186; 87205; 93005; 94002; 94003; 94640; 96365; 96375; A4605; C9113; G0378; J0696; J0714; J1815; J2405; J2543; J3480; J3490; J7060

== ENCOUNTER 2022-01-19 03:03 | Inpatient (IN) | payer MEDICARE, MEDICAID ==
[~2022-01-19] VITALS: Ht 165.1 cm; Wt 77.2 kg
[2022-01-19] VITALS (14 sets, daily range): BP systolic 106–145; BP diastolic 69–95
[2022-01-19 03:52] LABS: Basophils # (auto) 0.1 10 ^3/uL (0-0.2); Lymphocytes # (auto) 1.4 10 ^3/uL (0.4-5.4); Monocytes # (auto) 0.3 10 ^3/uL (0-1.3); Nucleated Red Blood Cells % 0.2 %
[2022-01-19 03:56] LABS: Basophils % (auto) 0.6 % (0.0-2.0); Eosinophils # (auto) 0.4 10 ^3/uL (0-0.8); Eosinophils % (auto) 3.1 % (0.0-7.0); Hematocrit 31.2 % (41.0-53.0); Hemoglobin 9.3 g/dL (13.5-17.5); Lymphocytes % (auto) 10.6 % (10.0-50.0); Mean Corpuscular Hemoglobin 20.8 pg (28.0-32.0); Mean Corpuscular Hgb Conc. 29.7 g/dL (32.0-36.0); Monocytes % (auto) 2.6 % (0.0-12.0); Neutrophils % (auto) 83.1 % (37.0-80.0); Red Blood Cells 4.46 10^6/uL (4.5-5.90); Red Cell Distribution Width 19.6 % (11.8-14.3); White Blood Cell 13.3 10^3/uL (4.4-10.8)
[2022-01-19 04:15] LABS: Albumin 2.8 g/dL (3.4-5.0); Calcium 8.5 mg/dL (8.5-10.1); Potassium 4.4 mmol/L (3.5-5.1)
[2022-01-19 04:31] LABS: Bilirubin, Total 0.7 mg/dL (0.2-1.0)
[2022-01-19] MEDS ORDERED: AZITHROMYCIN 500MG/ 250ML 250 ML IV ONE (05:00)
[2022-01-19] MEDS ORDERED: cefTRIAXone 1GM/50ML D5W 50 ML IV ONE (05:00)
[2022-01-19] MEDS ORDERED: ENOXAPARIN SOD 60 MG/0.6 ML SYRINGE SC ONE (05:00)
[2022-01-19 05:25] LABS: Lactic Acid w/Reflex 3.1 mmol/L (0.4-2.0)
[2022-01-19] MEDS ORDERED: LORazepam 2MG/ML-1ML VIAL IV ONE (08:00)
[2022-01-19] MEDS ORDERED: SODIUM CHLORIDE 0.9% 250 ML IV ONE (09:30)
[2022-01-19] MEDS ORDERED: VANCOMYCIN PER PHARMACY 0 MG IV SCH (09:30)
[2022-01-19] MEDS ORDERED: SODIUM CHLORIDE 0.9% 1,000 ML IV ONE (09:30)
[2022-01-19] MEDS ORDERED: FUROSEMIDE 20 MG TAB PO SCH (10:00)
[2022-01-19] MEDS ORDERED: traZODone HCL 50 MG TAB PO PRN (10:00)
[2022-01-19] MEDS ORDERED: ALPRAZolam 0.5 MG TAB PO PRN (10:00)
[2022-01-19] MEDS: MORPHINE SULF 30 mg ER tab PO SCH ×2 (11:54→22:00)
[2022-01-19] MEDS: ENOXAPARIN SOD 40 MG/0.4 ML SYRINGE SC SCH (11:55)
[2022-01-19] MEDS: OXYCODONE W/ ACETAMINOPHEN 5/325MG TABLET PO SCH ×3 (12:00→18:21)
[2022-01-19] MEDS: IPRATROPIUM BROM 0.5 MG/2.5ML INH SOL NEB SCH ×2 (13:11→18:30)
[2022-01-19] MEDS: ALBUTEROL SULF 2.5 MG/0.5ML(0.5%) NEB SOLN NEB SCH ×2 (13:11→18:30)
[2022-01-19] MEDS ORDERED: ANGIOMAX 250 MG VIAL IV ONE (13:54)
[2022-01-19] MEDS ORDERED: MIDAZOLAM HCL 2MG/2ML 2ml VIAL (1mg/ml) ONE ×2 (13:54→14:33)
[2022-01-19] MEDS ORDERED: fentaNYL CITRATE 100 MCG/2 ML VL ONE ×2 (13:54→14:33)
[2022-01-19] MEDS ORDERED: SODIUM CHL 0.9% 0 ML ONE (13:54)
[2022-01-19 13:58] LABS: INR 1.24 (0.9-1.15); Partial Thromboplastin Time 41.6 sec (23.6-33.0)
[2022-01-19] MEDS ORDERED: HEPARIN SODIUM (PORCINE) 5000 UNITS/ML 1ML VIAL ONE (14:09)
[2022-01-19] MEDS ORDERED: VERAPAMIL 2.5MG/ML INJ 2ML VIAL IV ONE (14:09)
[2022-01-19] MEDS ORDERED: VANCOMYCIN 1GM/250ML 250 ML IV ONE (14:15)
[2022-01-19] MEDS: VANCOMYCIN 1GM/250ML 250 ML IV SCH (18:20)
[2022-01-19] MEDS ORDERED: TPN PER PHARMACY 0 ML IV SCH (18:45)
[2022-01-19] MEDS ORDERED: CLINIMIX PER PHARMACY 0 ML IV SCH (18:45)
[2022-01-19] MEDS ORDERED: traZODone HCL 50 MG TAB GT PRN (19:00)
[2022-01-19] MEDS ORDERED: CLINIMIX PER PHARMACY IV NR (20:00)
[2022-01-19] MEDS: IPRATROPIUM BROM 0.5 MG/2.5ML INH SOL NEB PRN (23:02)
[2022-01-19] MEDS: ALBUTEROL SULF 2.5 MG/0.5ML(0.5%) NEB SOLN NEB PRN (23:02)
[2022-01-19] MEDS: SODIUM CHLOR 0.9% PF (SALINE LOCK) 10ML VIAL/SYR IV SCH (23:14)
[2022-01-19] MEDS: OXYCODONE W/ ACETAMINOPHEN 5/325MG TABLET GT PRN (23:28)
[2022-01-20] VITALS (9 sets, daily range): BP systolic 101–118; BP diastolic 61–77
[2022-01-20] MEDS: ALPRAZolam 0.5 MG TAB GT PRN ×3 (00:44→20:47)
[2022-01-20] MEDS ORDERED: MORPHINE SULFATE 10 MG/5 ML ORAL SOLN GT PRN ×2 (00:45→11:00)
[2022-01-20] MEDS: VANCOMYCIN 1GM/250ML 250 ML IV SCH ×2 (02:31→09:19)
[2022-01-20] MEDS: IPRATROPIUM BROM 0.5 MG/2.5ML INH SOL NEB SCH ×3 (05:23→18:59)
[2022-01-20] MEDS: ALBUTEROL SULF 2.5 MG/0.5ML(0.5%) NEB SOLN NEB SCH ×3 (05:23→18:59)
[2022-01-20 05:39] LABS: Basophils # (auto) 0 10 ^3/uL (0-0.2); Basophils % (auto) 0.5 % (0.0-2.0); Eosinophils # (auto) 0 10 ^3/uL (0-0.8); Eosinophils % (auto) 0.1 % (0.0-7.0); Hematocrit 27.3 % (41.0-53.0); Hemoglobin 8.4 g/dL (13.5-17.5); Lymphocytes # (auto) 0.9 10 ^3/uL (0.4-5.4); Lymphocytes % (auto) 9.9 % (10.0-50.0); Mean Corpuscular Hemoglobin 20.8 pg (28.0-32.0); Mean Corpuscular Hgb Conc. 30.8 g/dL (32.0-36.0); Mean Corpuscular Volume 67.3 fL (80.0-100.0); Monocytes % (auto) 11.7 % (0.0-12.0); Neutrophils # (auto) 6.9 10 ^3/uL (1.6-8.6); Neutrophils % (auto) 77.8 % (37.0-80.0); Red Blood Cells 4.06 10^6/uL (4.5-5.90); Red Cell Distribution Width 19.4 % (11.8-14.3); White Blood Cell 8.9 10^3/uL (4.4-10.8)
[2022-01-20 06:02] LABS: Chloride 108 mmol/L (98-107); Sodium 142 mmol/L (136-145)
[2022-01-20 06:09] LABS: Albumin 2.7 g/dL (3.4-5.0); Anion Gap 10 (5-15); Aspartate Aminotransferase 43 U/L (15-37); BUN/Creatinine Ratio 126.7; Blood Urea Nitrogen 19 mg/dL (7-18); Calcium 8.4 mg/dL (8.5-10.1); Carbon Dioxide 24 mmol/L (21-32); GFR African American 916 mL/min; GFR Non-African American 757 mL/min; Glucose 94 mg/dL (74-106); Magnesium 1.7 mg/dL (1.6-2.6); Total Protein 7.1 g/dL (6.4-8.2)
[2022-01-20] MEDS: MORPHINE SULFATE 10 MG/5 ML ORAL SOLN GT SCH ×2 (06:11→09:42)
[2022-01-20] MEDS: SODIUM CHLOR 0.9% PF (SALINE LOCK) 10ML VIAL/SYR IV SCH ×3 (06:11→22:01)
[2022-01-20 06:17] LABS: Alanine Aminotransferase 48 U/L (16-61); Alkaline Phosphatase 193 U/L (45-117); Bilirubin, Total 0.8 mg/dL (0.2-1.0); Phosphorus 1.8 mg/dL (2.5-4.90)
[2022-01-20 06:37] LABS: Triglycerides 101 mg/dL (< 150)
[2022-01-20] MEDS ORDERED: POTASSIUM CHL 20MEQ/100ML 100 ML IV ONE (09:00)
[2022-01-20] MEDS: ENOXAPARIN SOD 40 MG/0.4 ML SYRINGE SC SCH (09:20)
[2022-01-20] MEDS: FUROSEMIDE 20 MG TAB GT SCH (09:22)
[2022-01-20] MEDS ORDERED: MAGNESIUM SULFATE 1GM/100ML 100 ML IV ONE (10:45)
[2022-01-20] MEDS ORDERED: PANTOPRAZOLE 40 MG/10 ML VIAL INJ IV ONE (11:00)
[2022-01-20] MEDS ORDERED: levoFLOXacin 500MG 100 ML IV ONE (11:00)
[2022-01-20] MEDS ORDERED: POTASSIUM PHOSPHATE 44 MEQ in D5W 5% 250 ML IV ONE (11:00)
[2022-01-20] MEDS ORDERED: FERROUS SULFATE 300 MG/5 ML ORAL LIQ GT ONE (11:00)
[2022-01-20] MEDS ORDERED: DEXTROSE (50%) 50ML SYRG IV SCH (12:00)
[2022-01-20] MEDS: InsuLIN REG 1unit/0.01ml Soln (100units/ml) SC SCH ×2 (12:00→18:00)
[2022-01-20] MEDS: ACCU-CHEK COMFORT CURVE STRIP VI SCH ×2 (12:39→18:28)
[2022-01-20] MEDS: OXYCODONE W/ ACETAMINOPHEN 5/325MG TABLET GT PRN ×2 (14:39→20:48)
[2022-01-20] MEDS: CEFEPIME 1GM/ 50ML 50 ML IV SCH ×2 (15:24→22:01)
[2022-01-20] MEDS ORDERED: TPN PER PHARMACY IV NR ×9 (20:00)
[2022-01-20] MEDS: MUPIROCIN 2% OINT 15gm or 22gm EACHNOSTRI SCH (21:59)
[2022-01-20] MEDS: FERROUS SULFATE 300 MG/5 ML ORAL LIQ GT SCH (22:00)
[2022-01-21] VITALS (7 sets, daily range): BP systolic 97–135; BP diastolic 57–73
[2022-01-21] MEDS: IPRATROPIUM BROM 0.5 MG/2.5ML INH SOL NEB SCH ×3 (00:17→18:48)
[2022-01-21] MEDS: ALBUTEROL SULF 2.5 MG/0.5ML(0.5%) NEB SOLN NEB SCH ×3 (00:17→18:48)
[2022-01-21] MEDS: MORPHINE SULFATE 10 MG/5 ML ORAL SOLN GT PRN ×3 (01:08→16:20)
[2022-01-21] MEDS: ACCU-CHEK COMFORT CURVE STRIP VI SCH ×4 (01:08→17:36)
[2022-01-21] MEDS: InsuLIN REG 1unit/0.01ml Soln (100units/ml) SC SCH ×4 (01:17→17:36)
[2022-01-21] MEDS: CEFEPIME 1GM/ 50ML 50 ML IV SCH ×3 (05:55→21:28)
[2022-01-21] MEDS: SODIUM CHLOR 0.9% PF (SALINE LOCK) 10ML VIAL/SYR IV SCH ×3 (05:55→21:28)
[2022-01-21 06:05] LABS: Alanine Aminotransferase 46 U/L (16-61); Albumin 2.6 g/dL (3.4-5.0); Anion Gap 7 (5-15); Aspartate Aminotransferase 32 U/L (15-37); BUN/Creatinine Ratio 106.7; Blood Urea Nitrogen 16 mg/dL (7-18); Calcium 8.3 mg/dL (8.5-10.1); Carbon Dioxide 23 mmol/L (21-32); Chloride 110 mmol/L (98-107); GFR African American 916 mL/min; GFR Non-African American 757 mL/min; Glucose 107 mg/dL (74-106); Magnesium 2.1 mg/dL (1.6-2.6); Potassium 4.1 mmol/L (3.5-5.1); Sodium 140 mmol/L (136-145)
[2022-01-21 06:08] LABS: Alkaline Phosphatase 168 U/L (45-117); Bilirubin, Total 0.7 mg/dL (0.2-1.0); Phosphorus 2.8 mg/dL (2.5-4.90); Total Protein 6.5 g/dL (6.4-8.2)
[2022-01-21 08:40] LABS: Basophils # (auto) 0.1 10 ^3/uL (0-0.2); Eosinophils # (auto) 0 10 ^3/uL (0-0.8); Lymphocytes # (auto) 0.5 10 ^3/uL (0.4-5.4); Mean Corpuscular Hemoglobin 20.8 pg (28.0-32.0)
[2022-01-21 08:41] LABS: Eosinophils % (auto) 0.7 % (0.0-7.0); Hematocrit 24.9 % (41.0-53.0); Hemoglobin 7.7 g/dL (13.5-17.5); Lymphocytes % (auto) 9.7 % (10.0-50.0); Monocytes # (auto) 0.5 10 ^3/uL (0-1.3); Monocytes % (auto) 10.6 % (0.0-12.0); Neutrophils # (auto) 3.8 10 ^3/uL (1.6-8.6); Nucleated Red Blood Cells % 0.1 %; Red Blood Cells 3.71 10^6/uL (4.5-5.90); Red Cell Distribution Width 19.1 % (11.8-14.3)
[2022-01-21] MEDS: FERROUS SULFATE 300 MG/5 ML ORAL LIQ GT SCH (10:00)
[2022-01-21] MEDS ORDERED: levoFLOXacin 500MG 100 ML IV SCH (10:00)
[2022-01-21] MEDS: PANTOPRAZOLE 40 MG/10 ML VIAL INJ IV SCH (10:08)
[2022-01-21] MEDS: ENOXAPARIN SOD 40 MG/0.4 ML SYRINGE SC SCH (10:09)
[2022-01-21] MEDS: MUPIROCIN 2% OINT 15gm or 22gm EACHNOSTRI SCH ×2 (10:10→21:27)
[2022-01-21] MEDS: FUROSEMIDE 20 MG TAB GT SCH (10:10)
[2022-01-21] MEDS: OXYCODONE W/ ACETAMINOPHEN 5/325MG TABLET GT PRN ×2 (10:11→21:47)
[2022-01-21] MEDS: ALPRAZolam 0.5 MG TAB GT PRN ×2 (12:17→21:48)
[2022-01-21] MEDS: VANCOMYCIN 750mg/250ml 250 ML IV SCH (12:17)
[2022-01-21] MEDS ORDERED: TPN PER PHARMACY IV NR ×10 (20:00)
[2022-01-22] VITALS (8 sets, daily range): BP systolic 96–105; BP diastolic 47–69
[2022-01-22] MEDS: ALBUTEROL SULF 2.5 MG/0.5ML(0.5%) NEB SOLN NEB PRN (00:03)
[2022-01-22] MEDS: IPRATROPIUM BROM 0.5 MG/2.5ML INH SOL NEB PRN (00:03)
[2022-01-22] MEDS: MORPHINE SULFATE 10 MG/5 ML ORAL SOLN GT PRN ×3 (04:04→16:38)
[2022-01-22] MEDS: CEFEPIME 1GM/ 50ML 50 ML IV SCH ×3 (05:46→22:05)
[2022-01-22] MEDS: SODIUM CHLOR 0.9% PF (SALINE LOCK) 10ML VIAL/SYR IV SCH ×3 (05:46→22:05)
[2022-01-22 05:49] LABS: Albumin 2.3 g/dL (3.4-5.0); Anion Gap 6 (5-15); Blood Urea Nitrogen 19 mg/dL (7-18); Carbon Dioxide 21 mmol/L (21-32); Chloride 111 mmol/L (98-107); Glucose 94 mg/dL (74-106); Magnesium 2.2 mg/dL (1.6-2.6); Potassium 4.9 mmol/L (3.5-5.1); Sodium 138 mmol/L (136-145)
[2022-01-22 05:52] LABS: Alanine Aminotransferase 46 U/L (16-61); Alkaline Phosphatase 162 U/L (45-117); Aspartate Aminotransferase 47 U/L (15-37); Bilirubin, Total 0.6 mg/dL (0.2-1.0); Phosphorus 2.7 mg/dL (2.5-4.90); Total Protein 6.5 g/dL (6.4-8.2)
[2022-01-22] MEDS: InsuLIN REG 1unit/0.01ml Soln (100units/ml) SC SCH ×4 (06:00→18:00)
[2022-01-22] MEDS: ACCU-CHEK COMFORT CURVE STRIP VI SCH ×4 (06:11→18:00)
[2022-01-22] MEDS: OXYCODONE W/ ACETAMINOPHEN 5/325MG TABLET GT PRN ×3 (06:36→21:47)
[2022-01-22] MEDS: ALBUTEROL SULF 2.5 MG/0.5ML(0.5%) NEB SOLN NEB SCH ×3 (06:40→18:58)
[2022-01-22] MEDS: IPRATROPIUM BROM 0.5 MG/2.5ML INH SOL NEB SCH ×3 (06:40→18:58)
[2022-01-22 06:41] LABS: BUN/Creatinine Ratio 126.7; GFR African American 916 mL/min; GFR Non-African American 757 mL/min
[2022-01-22] MEDS: MUPIROCIN 2% OINT 15gm or 22gm EACHNOSTRI SCH ×2 (10:48→22:06)
[2022-01-22] MEDS: PANTOPRAZOLE 40 MG/10 ML VIAL INJ IV SCH (10:49)
[2022-01-22] MEDS: FUROSEMIDE 20 MG TAB GT SCH (10:49)
[2022-01-22] MEDS: VANCOMYCIN 750mg/250ml 250 ML IV SCH (15:30)
[2022-01-22] MEDS: ALPRAZolam 0.5 MG TAB GT PRN (15:39)
[2022-01-22] MEDS ORDERED: TPN PER PHARMACY IV NR ×8 (20:00)
[2022-01-23] VITALS (7 sets, daily range): BP systolic 96–139; BP diastolic 51–73
[2022-01-23] MEDS: IPRATROPIUM BROM 0.5 MG/2.5ML INH SOL NEB PRN (00:03)
[2022-01-23] MEDS: ALBUTEROL SULF 2.5 MG/0.5ML(0.5%) NEB SOLN NEB PRN (00:03)
[2022-01-23] MEDS: ACCU-CHEK COMFORT CURVE STRIP VI SCH ×4 (00:19→18:00)
[2022-01-23] MEDS: InsuLIN REG 1unit/0.01ml Soln (100units/ml) SC SCH ×4 (00:22→18:00)
[2022-01-23] MEDS: MORPHINE SULFATE 10 MG/5 ML ORAL SOLN GT PRN ×4 (02:09→21:33)
[2022-01-23] MEDS: CEFEPIME 1GM/ 50ML 50 ML IV SCH ×3 (05:46→21:33)
[2022-01-23] MEDS: ALPRAZolam 0.5 MG TAB GT PRN ×2 (05:46→14:56)
[2022-01-23] MEDS: OXYCODONE W/ ACETAMINOPHEN 5/325MG TABLET GT PRN ×4 (05:47→23:21)
[2022-01-23] MEDS: SODIUM CHLOR 0.9% PF (SALINE LOCK) 10ML VIAL/SYR IV SCH ×3 (05:48→21:33)
[2022-01-23] MEDS: ALBUTEROL SULF 2.5 MG/0.5ML(0.5%) NEB SOLN NEB SCH ×3 (06:18→18:36)
[2022-01-23] MEDS: IPRATROPIUM BROM 0.5 MG/2.5ML INH SOL NEB SCH ×3 (06:18→18:36)
[2022-01-23 08:10] LABS: Albumin 2.4 g/dL (3.4-5.0); Anion Gap 8 (5-15); Blood Urea Nitrogen 21 mg/dL (7-18); Calcium 8.2 mg/dL (8.5-10.1); Carbon Dioxide 22 mmol/L (21-32); Chloride 107 mmol/L (98-107); Glucose 105 mg/dL (74-106); Magnesium 2.5 mg/dL (1.6-2.6); Potassium 4.1 mmol/L (3.5-5.1); Sodium 137 mmol/L (136-145)
[2022-01-23 08:13] LABS: Alanine Aminotransferase 52 U/L (16-61); Alkaline Phosphatase 192 U/L (45-117); Aspartate Aminotransferase 46 U/L (15-37); Bilirubin, Total 0.8 mg/dL (0.2-1.0); Phosphorus 3.2 mg/dL (2.5-4.90); Total Protein 6.8 g/dL (6.4-8.2)
[2022-01-23 08:19] LABS: GFR African American 916 mL/min; GFR Non-African American 757 mL/min
[2022-01-23] MEDS: MUPIROCIN 2% OINT 15gm or 22gm EACHNOSTRI SCH ×2 (13:33→22:00)
[2022-01-23] MEDS: FUROSEMIDE 20 MG TAB GT SCH (13:35)
[2022-01-23] MEDS: PANTOPRAZOLE 40 MG/10 ML VIAL INJ IV SCH (13:35)
[2022-01-23] MEDS ORDERED: TPN PER PHARMACY IV NR ×9 (20:00)
[2022-01-24] MEDS: ACCU-CHEK COMFORT CURVE STRIP VI SCH ×4 (00:14→19:10)
[2022-01-24] MEDS: ALPRAZolam 0.5 MG TAB GT PRN ×2 (01:47→19:13)
[2022-01-24] MEDS: MORPHINE SULFATE 10 MG/5 ML ORAL SOLN GT PRN ×3 (04:51→20:55)
[2022-01-24 05:00] VITALS: BP 108/56
[2022-01-24] MEDS: CEFEPIME 1GM/ 50ML 50 ML IV SCH ×3 (05:43→22:13)
[2022-01-24] MEDS: InsuLIN REG 1unit/0.01ml Soln (100units/ml) SC SCH ×4 (05:50→18:00)
[2022-01-24] MEDS: SODIUM CHLOR 0.9% PF (SALINE LOCK) 10ML VIAL/SYR IV SCH ×3 (05:50→22:14)
[2022-01-24] MEDS: IPRATROPIUM BROM 0.5 MG/2.5ML INH SOL NEB SCH ×3 (05:57→18:59)
[2022-01-24] MEDS: ALBUTEROL SULF 2.5 MG/0.5ML(0.5%) NEB SOLN NEB SCH ×3 (05:57→18:59)
[2022-01-24] MEDS: OXYCODONE W/ ACETAMINOPHEN 5/325MG TABLET GT PRN ×2 (07:00→22:14)
[2022-01-24 09:00] VITALS: BP 90/48
[2022-01-24] MEDS: PANTOPRAZOLE 40 MG/10 ML VIAL INJ IV SCH (12:03)
[2022-01-24] MEDS: MUPIROCIN 2% OINT 15gm or 22gm EACHNOSTRI SCH ×2 (12:03→22:13)
[2022-01-24] MEDS: FUROSEMIDE 20 MG TAB GT SCH (12:04)
[2022-01-24 13:00] VITALS: BP 156/81
[2022-01-24 17:00] VITALS: BP 126/86
[2022-01-24 20:00] VITALS: BP 103/65
[2022-01-24] MEDS ORDERED: TPN PER PHARMACY IV NR ×5 (20:00)
[2022-01-24 20:22] LABS: Potassium 3.5 mmol/L (3.5-5.1)
[2022-01-24 20:23] LABS: Albumin 2.6 g/dL (3.4-5.0); BUN/Creatinine Ratio 188.2; Bilirubin, Total 0.6 mg/dL (0.2-1.0); Calcium 8.3 mg/dL (8.5-10.1); Magnesium 2.1 mg/dL (1.6-2.6); Phosphorus 2.8 mg/dL (2.5-4.90); Total Protein 7.6 g/dL (6.4-8.2)
[2022-01-24 22:00] VITALS: BP 103/65
[2022-01-25] VITALS (7 sets, daily range): BP systolic 103–151; BP diastolic 53–75
[2022-01-25] MEDS: ACCU-CHEK COMFORT CURVE STRIP VI SCH ×4 (00:41→18:00)
[2022-01-25] MEDS: MORPHINE SULFATE 10 MG/5 ML ORAL SOLN GT PRN ×2 (03:28→16:37)
[2022-01-25] MEDS: IPRATROPIUM BROM 0.5 MG/2.5ML INH SOL NEB SCH ×3 (05:50→18:51)
[2022-01-25] MEDS: ALBUTEROL SULF 2.5 MG/0.5ML(0.5%) NEB SOLN NEB SCH ×3 (05:50→18:51)
[2022-01-25] MEDS: InsuLIN REG 1unit/0.01ml Soln (100units/ml) SC SCH ×4 (06:00→18:00)
[2022-01-25] MEDS: ALPRAZolam 0.5 MG TAB GT PRN ×2 (06:09→21:06)
[2022-01-25 06:10] LABS: Alanine Aminotransferase 42 U/L (16-61); Albumin 2.6 g/dL (3.4-5.0); Anion Gap 9 (5-15); Aspartate Aminotransferase 54 U/L (15-37); BUN/Creatinine Ratio 233.3; Blood Urea Nitrogen 35 mg/dL (7-18); Calcium 8.8 mg/dL (8.5-10.1); Carbon Dioxide 21 mmol/L (21-32); Chloride 109 mmol/L (98-107); GFR African American 916 mL/min; GFR Non-African American 757 mL/min; Glucose 103 mg/dL (74-106); Magnesium 2.3 mg/dL (1.6-2.6); Sodium 139 mmol/L (136-145)
[2022-01-25] MEDS: SODIUM CHLOR 0.9% PF (SALINE LOCK) 10ML VIAL/SYR IV SCH ×3 (06:10→22:00)
[2022-01-25] MEDS: OXYCODONE W/ ACETAMINOPHEN 5/325MG TABLET GT PRN ×3 (06:10→20:35)
[2022-01-25] MEDS: CEFEPIME 1GM/ 50ML 50 ML IV SCH ×3 (06:10→23:05)
[2022-01-25 06:13] LABS: Alkaline Phosphatase 201 U/L (45-117); Bilirubin, Total 0.7 mg/dL (0.2-1.0); Phosphorus 1.9 mg/dL (2.5-4.90); Total Protein 7.5 g/dL (6.4-8.2)
[2022-01-25] MEDS ORDERED: POTASSIUM PHOSPHATE 44 MEQ in D5W 5% 250 ML IV ONE (08:15)
[2022-01-25] MEDS: PANTOPRAZOLE 40 MG/10 ML VIAL INJ IV SCH (10:00)
[2022-01-25] MEDS: FUROSEMIDE 20 MG TAB GT SCH (10:00)
[2022-01-25] MEDS: MUPIROCIN 2% OINT 15gm or 22gm EACHNOSTRI SCH ×2 (12:43→23:05)
[2022-01-25] MEDS ORDERED: TPN PER PHARMACY IV NR ×9 (20:00)
[2022-01-26] MEDS: ACCU-CHEK COMFORT CURVE STRIP VI SCH ×5 (00:18→23:46)
[2022-01-26] MEDS: MORPHINE SULFATE 10 MG/5 ML ORAL SOLN GT PRN ×4 (00:50→18:22)
[2022-01-26] MEDS: OXYCODONE W/ ACETAMINOPHEN 5/325MG TABLET GT PRN ×3 (03:57→17:27)
[2022-01-26 05:00] VITALS: BP 107/60
[2022-01-26] MEDS: CEFEPIME 1GM/ 50ML 50 ML IV SCH ×3 (05:55→21:18)
[2022-01-26] MEDS: InsuLIN REG 1unit/0.01ml Soln (100units/ml) SC SCH ×5 (05:57→23:46)
[2022-01-26] MEDS: SODIUM CHLOR 0.9% PF (SALINE LOCK) 10ML VIAL/SYR IV SCH ×3 (06:00→21:19)
[2022-01-26 06:24] LABS: Chloride 112 mmol/L (98-107); Potassium 3.7 mmol/L (3.5-5.1); Sodium 139 mmol/L (136-145)
[2022-01-26 06:29] LABS: Alanine Aminotransferase 38 U/L (16-61); Albumin 2.3 g/dL (3.4-5.0); Alkaline Phosphatase 187 U/L (45-117); Anion Gap 7 (5-15); Aspartate Aminotransferase 34 U/L (15-37); Bilirubin, Total 0.6 mg/dL (0.2-1.0); Blood Urea Nitrogen 39 mg/dL (7-18); Calcium 8.1 mg/dL (8.5-10.1); Carbon Dioxide 20 mmol/L (21-32); Glucose 98 mg/dL (74-106); Magnesium 2.1 mg/dL (1.6-2.6); Total Protein 6.6 g/dL (6.4-8.2)
[2022-01-26] MEDS: ALBUTEROL SULF 2.5 MG/0.5ML(0.5%) NEB SOLN NEB SCH ×3 (06:34→18:50)
[2022-01-26] MEDS: IPRATROPIUM BROM 0.5 MG/2.5ML INH SOL NEB SCH ×3 (06:35→18:50)
[2022-01-26 06:45] LABS: GFR African American 916 mL/min; GFR Non-African American 757 mL/min
[2022-01-26 08:41] VITALS: BP 116/62
[2022-01-26] MEDS: FUROSEMIDE 20 MG TAB GT SCH (11:07)
[2022-01-26] MEDS: MUPIROCIN 2% OINT 15gm or 22gm EACHNOSTRI SCH ×2 (11:07→21:18)
[2022-01-26] MEDS: PANTOPRAZOLE 40 MG/10 ML VIAL INJ IV SCH (11:07)
[2022-01-26 13:00] VITALS: BP 113/54
[2022-01-26 14:45] VITALS: BP 113/54
[2022-01-26 17:00] VITALS: BP 117/61
[2022-01-26] MEDS: ALPRAZolam 0.5 MG TAB GT PRN (17:27)
[2022-01-26] MEDS ORDERED: FAT EMULSION IV NR ×7 (20:00)
[2022-01-26] MEDS ORDERED: [UNRECOGNIZED DRUG - OTHER] IV NR ×7 (20:00)
[2022-01-26] MEDS ORDERED: SODIUM PHOSPHATES IV NR ×7 (20:00)
[2022-01-26] MEDS ORDERED: POTASSIUM ACETATE IV NR ×7 (20:00)
[2022-01-26 21:52] VITALS: BP 109/55
[2022-01-26] MEDS: IPRATROPIUM BROM 0.5 MG/2.5ML INH SOL NEB PRN (23:33)
[2022-01-26] MEDS: ALBUTEROL SULF 2.5 MG/0.5ML(0.5%) NEB SOLN NEB PRN (23:33)
[2022-01-27] MEDS: OXYCODONE W/ ACETAMINOPHEN 5/325MG TABLET GT PRN ×2 (00:04→14:38)
[2022-01-27] MEDS: MORPHINE SULFATE 10 MG/5 ML ORAL SOLN GT PRN ×4 (04:48→18:20)
[2022-01-27 04:50] VITALS: BP 120/58
[2022-01-27 05:31] LABS: Albumin 2.3 g/dL (3.4-5.0); Anion Gap 9 (5-15); Blood Urea Nitrogen 40 mg/dL (7-18); Calcium 8.1 mg/dL (8.5-10.1); Carbon Dioxide 19 mmol/L (21-32); Chloride 111 mmol/L (98-107); Glucose 95 mg/dL (74-106); Magnesium 1.8 mg/dL (1.6-2.6); Potassium 3.7 mmol/L (3.5-5.1); Sodium 139 mmol/L (136-145)
[2022-01-27 05:34] LABS: Alanine Aminotransferase 37 U/L (16-61); Alkaline Phosphatase 182 U/L (45-117); Aspartate Aminotransferase 58 U/L (15-37); Bilirubin, Total 0.6 mg/dL (0.2-1.0); Total Protein 6.8 g/dL (6.4-8.2)
[2022-01-27 05:42] LABS: BUN/Creatinine Ratio 266.7; GFR African American 916 mL/min; GFR Non-African American 757 mL/min
[2022-01-27] MEDS: InsuLIN REG 1unit/0.01ml Soln (100units/ml) SC SCH ×3 (06:00→18:00)
[2022-01-27] MEDS: CEFEPIME 1GM/ 50ML 50 ML IV SCH ×2 (06:03→13:30)
[2022-01-27] MEDS: SODIUM CHLOR 0.9% PF (SALINE LOCK) 10ML VIAL/SYR IV SCH ×2 (06:03→13:30)
[2022-01-27] MEDS: ACCU-CHEK COMFORT CURVE STRIP VI SCH ×3 (06:03→17:30)
[2022-01-27] MEDS: IPRATROPIUM BROM 0.5 MG/2.5ML INH SOL NEB SCH ×3 (06:06→18:49)
[2022-01-27] MEDS: ALBUTEROL SULF 2.5 MG/0.5ML(0.5%) NEB SOLN NEB SCH ×3 (06:07→18:49)
[2022-01-27] MEDS: ALPRAZolam 0.5 MG TAB GT PRN ×2 (06:41→18:19)
[2022-01-27] MEDS: MUPIROCIN 2% OINT 15gm or 22gm EACHNOSTRI SCH (12:29)
[2022-01-27] MEDS: PANTOPRAZOLE 40 MG/10 ML VIAL INJ IV SCH (12:29)
[2022-01-27] MEDS: FUROSEMIDE 20 MG TAB GT SCH (12:29)
[2022-01-27 13:00] VITALS: BP 116/63
[2022-01-27 18:10] VITALS: BP 116/63
== END 2022-01-27 19:21 | disposition home health service (06) | DRG 870 ==
LOC: EDBD 03:03 → ER 03:03 → TELE 09:41 → TELE-CENTR 16:51
PROVIDERS: ADMIT Registered Nurse; ATTEND Internal Medicine
PROC: 4A023N7 Measurement of Cardiac Sampling and Pressure, Left Heart, Percutaneous Approach (ICD-10-PCS; principal; 2022-01-19)
PROC: B2111ZZ Fluoroscopy of Multiple Coronary Arteries using Low Osmolar Contrast (ICD-10-PCS; 2022-01-19)
PROC: 5A1955Z Respiratory Ventilation, Greater than 96 Consecutive Hours (ICD-10-PCS; 2022-01-19)
PROC: B2151ZZ Fluoroscopy of Left Heart using Low Osmolar Contrast (ICD-10-PCS; 2022-01-19)
PROC: 5A09357 Assistance with Respiratory Ventilation, Less than 24 Consecutive Hours, Continuous Positive Airway Pressure (ICD-10-PCS; 2022-01-19)
DX: A41.9 Sepsis, unspecified organism (principal); J96.20 Acute and chronic respiratory failure, unspecified whether with hypoxia or hypercapnia; I21.4 Non-ST elevation (NSTEMI) myocardial infarction; J18.9 Pneumonia, unspecified organism; J44.0 Chronic obstructive pulmonary disease with (acute) lower respiratory infection; N39.0 Urinary tract infection, site not specified; Z99.11 Dependence on respirator [ventilator] status; E44.0 Moderate protein-calorie malnutrition; Z66 Do not resuscitate; K21.9 Gastro-esophageal reflux disease without esophagitis; Z20.822 Contact with and (suspected) exposure to COVID-19; G71.01 Duchenne or Becker muscular dystrophy; D63.8 Anemia in other chronic diseases classified elsewhere; E11.9 Type 2 diabetes mellitus without complications; F41.9 Anxiety disorder, unspecified; I25.10 Atherosclerotic heart disease of native coronary artery without angina pectoris; G89.29 Other chronic pain; Z88.2 Allergy status to sulfonamides; Z88.8 Allergy status to other drugs, medicaments and biological substances; Z83.3 Family history of diabetes mellitus; Z86.79 Personal history of other diseases of the circulatory system; Z93.1 Gastrostomy status; Z68.27 Body mass index [BMI] 27.0-27.9, adult
CPT/HCPCS: 36415; 71045; 80053; 80202; 82962; 83036; 83605; 83735; 83880; 84100; 84478; 84484; 85025; 85610; 85730; 87040; 87070; 87077; 87081; 87086; 87088; 87186; 87205; 93005; 93306; 93458; 94002; 94003; 94640; 96361; 96365; 96367; 96372; 96375; 99291; A4605; C9113; G0378; J0696; J1815; J2250; J3480; J7060

== ENCOUNTER 2022-02-25 05:08 | Inpatient (IN) | payer MEDICARE, MEDICAID ==
[2022-02-25] VITALS (10 sets, daily range): BP systolic 116–214; BP diastolic 60–81
[~2022-02-25] VITALS: Ht 152.4 cm; Wt 78.9 kg
[2022-02-25] MEDS ORDERED: LABETALOL HCL 5 MG/ML 4ML SYRINGE IV ONE (05:45)
[2022-02-25 07:01] LABS: Albumin 2.6 g/dL (3.4-5.0); Anion Gap 7 (5-15); Blood Urea Nitrogen 13 mg/dL (7-18); Calcium 8.7 mg/dL (8.5-10.1); Carbon Dioxide 22 mmol/L (21-32); Chloride 108 mmol/L (98-107); Glucose 121 mg/dL (74-106); Potassium 3.7 mmol/L (3.5-5.1); Sodium 137 mmol/L (136-145)
[2022-02-25 07:04] LABS: Alanine Aminotransferase 115 U/L (16-61); Alkaline Phosphatase 440 U/L (45-117); Aspartate Aminotransferase 79 U/L (15-37); BUN/Creatinine Ratio 86.7; Bilirubin, Total 1.7 mg/dL (0.2-1.0); GFR African American 916 mL/min; GFR Non-African American 757 mL/min; Total Protein 8.2 g/dL (6.4-8.2)
[2022-02-25 07:56] LABS: Basophils # (auto) 0 10 ^3/uL (0-0.2); Basophils % (auto) 0.3 % (0.0-2.0); Eosinophils # (auto) 0.1 10 ^3/uL (0-0.8); Eosinophils % (auto) 0.7 % (0.0-7.0); Hematocrit 29.7 % (41.0-53.0); Hemoglobin 8.4 g/dL (13.5-17.5); Lymphocytes # (auto) 0.5 10 ^3/uL (0.4-5.4); Lymphocytes % (auto) 3.8 % (10.0-50.0); Mean Corpuscular Hemoglobin 19.1 pg (28.0-32.0); Mean Corpuscular Hgb Conc. 28.2 g/dL (32.0-36.0); Mean Corpuscular Volume 67.6 fL (80.0-100.0); Monocytes # (auto) 1.2 10 ^3/uL (0-1.3); Monocytes % (auto) 8.6 % (0.0-12.0); Neutrophils # (auto) 12.4 10 ^3/uL (1.6-8.6); Neutrophils % (auto) 86.6 % (37.0-80.0); Nucleated Red Blood Cells % 0.3 %; Red Blood Cells 4.39 10^6/uL (4.5-5.90); Red Cell Distribution Width 19.7 % (11.8-14.3); White Blood Cell 14.3 10^3/uL (4.4-10.8)
[2022-02-25] MEDS ORDERED: LABETALOL HCL 5 MG/ML 4ML SYRINGE IV PRN (10:30)
[2022-02-25] MEDS ORDERED: VANCOMYCIN PER PHARMACY 0 MG IV SCH (10:30)
[2022-02-25] MEDS ORDERED: ACETAMINOPHEN 325 MG TAB PO PRN (10:30)
[2022-02-25] MEDS ORDERED: DOCUSATE SOD 100 MG CAP PO PRN (10:30)
[2022-02-25] MEDS ORDERED: VANCOMYCIN 1GM/250ML 250 ML IV ONE (11:00)
[2022-02-25] MEDS: ENOXAPARIN SOD 40 MG/0.4 ML SYRINGE SC SCH (11:10)
[2022-02-25 11:56] LABS: % Iron Saturation 5.6 % (20-55)
[2022-02-25] MEDS: PIPERACILLIN-TAZO 4.5GM 100 ML IV SCH ×2 (12:59→18:23)
[2022-02-25] MEDS: SODIUM CHLOR 0.9% PF (SALINE LOCK) 10ML VIAL/SYR IV SCH ×2 (14:03→22:00)
[2022-02-25] MEDS ORDERED: ALPRAZolam 0.5 MG TAB PO PRN (16:15)
[2022-02-25] MEDS ORDERED: traZODone HCL 50 MG TAB PO PRN (16:15)
[2022-02-25] MEDS: ALBUTEROL SULFATE 0.083% IN SCH ×2 (16:30→20:30)
[2022-02-25] MEDS ORDERED: PANTOPRAZOLE 40 MG/10 ML VIAL INJ IV ONE (16:30)
[2022-02-25] MEDS: HYDROmorphone HCL 2 MG/ML VL/or syr IV PRN ×2 (16:43→22:42)
[2022-02-25] MEDS: ONDANSETRON HCL 4 MG/2 ML VIAL IV PRN (22:43)
[2022-02-25] MEDS: ALPRAZolam 0.5 MG TAB PO PRN (23:54)
[2022-02-26] MEDS: ALBUTEROL SULFATE 0.083% IN SCH (00:30)
[2022-02-26] MEDS: PIPERACILLIN-TAZO 4.5GM 100 ML IV SCH ×2 (03:09→10:25)
[2022-02-26] MEDS: HYDROmorphone HCL 2 MG/ML VL/or syr IV PRN ×4 (03:41→21:31)
[2022-02-26 05:00] VITALS: BP 142/70
[2022-02-26] MEDS: SODIUM CHLOR 0.9% PF (SALINE LOCK) 10ML VIAL/SYR IV SCH ×3 (06:41→22:34)
[2022-02-26] MEDS: HYDROcodone-ACET 5/325MG TAB PO PRN ×2 (06:41→17:10)
[2022-02-26] MEDS: VANCOMYCIN 1GM/250ML 250 ML IV SCH (06:42)
[2022-02-26 07:58] LABS: GFR African American 916 mL/min; GFR Non-African American 757 mL/min
[2022-02-26 08:53] VITALS: BP 96/55
[2022-02-26] MEDS ORDERED: ACETYLCYSTEINE 10 %(100MG/ML) SOL 4ML NEB ONE (09:30)
[2022-02-26] MEDS: ALBUTEROL SULF 2.5 MG/0.5ML(0.5%) NEB SOLN NEB PRN ×4 (09:54→22:08)
[2022-02-26] MEDS: FUROSEMIDE 20 MG TAB PO SCH (10:25)
[2022-02-26] MEDS: PANTOPRAZOLE 40 MG/10 ML VIAL INJ IV SCH (10:25)
[2022-02-26] MEDS: ENOXAPARIN SOD 40 MG/0.4 ML SYRINGE SC SCH (10:25)
[2022-02-26] MEDS: ALPRAZolam 0.5 MG TAB PO PRN (17:09)
[2022-02-26 17:49] VITALS: BP 123/52
[2022-02-26] MEDS: CEFEPIME 2 GM in SODIUM CHL 0.9% 50 ML IV SCH (18:00)
[2022-02-26] MEDS: ACETYLCYSTEINE 10 %(100MG/ML) SOL 4ML NEB SCH ×2 (18:25→22:08)
[2022-02-26] MEDS: IPRATROPIUM BROM 0.5 MG/2.5ML INH SOL NEB PRN (18:25)
[2022-02-26] MEDS: ONDANSETRON HCL 4 MG/2 ML VIAL IV PRN (21:31)
[2022-02-26 22:00] VITALS: BP 91/46
[2022-02-27] VITALS (8 sets, daily range): BP systolic 90–125; BP diastolic 52–68
[2022-02-27] MEDS: HYDROcodone-ACET 5/325MG TAB PO PRN
[2022-02-27] MEDS: ALBUTEROL SULF 2.5 MG/0.5ML(0.5%) NEB SOLN NEB PRN ×3 (02:25→22:16)
[2022-02-27] MEDS: ACETYLCYSTEINE 10 %(100MG/ML) SOL 4ML NEB SCH ×3 (02:25→22:16)
[2022-02-27] MEDS: CEFEPIME 2 GM in SODIUM CHL 0.9% 50 ML IV SCH ×3 (02:44→18:04)
[2022-02-27] MEDS: HYDROmorphone HCL 2 MG/ML VL/or syr IV PRN ×4 (02:45→20:31)
[2022-02-27] MEDS: ALPRAZolam 0.5 MG TAB PO PRN (05:06)
[2022-02-27] MEDS: VANCOMYCIN 1GM/250ML 250 ML IV SCH (06:27)
[2022-02-27] MEDS: SODIUM CHLOR 0.9% PF (SALINE LOCK) 10ML VIAL/SYR IV SCH ×3 (06:27→22:02)
[2022-02-27 07:24] LABS: Basophils # (auto) 0 10 ^3/uL (0-0.2); Eosinophils # (auto) 0 10 ^3/uL (0-0.8); Eosinophils % (auto) 0.1 % (0.0-7.0); Hemoglobin 7.5 g/dL (13.5-17.5); Mean Corpuscular Hemoglobin 18.9 pg (28.0-32.0); Monocytes # (auto) 0.4 10 ^3/uL (0-1.3)
[2022-02-27 07:26] LABS: Basophils % (auto) 0.5 % (0.0-2.0); Hematocrit 26.2 % (41.0-53.0); Lymphocytes # (auto) 0.4 10 ^3/uL (0.4-5.4); Lymphocytes % (auto) 9.6 % (10.0-50.0); Mean Corpuscular Hgb Conc. 28.5 g/dL (32.0-36.0); Mean Corpuscular Volume 66.2 fL (80.0-100.0); Monocytes % (auto) 9.5 % (0.0-12.0); Neutrophils % (auto) 80.3 % (37.0-80.0); Nucleated Red Blood Cells % 0.4 %; Red Blood Cells 3.96 10^6/uL (4.5-5.90); Red Cell Distribution Width 19.7 % (11.8-14.3); White Blood Cell 3.8 10^3/uL (4.4-10.8)
[2022-02-27 07:36] LABS: Anion Gap 13 (5-15); Blood Urea Nitrogen 21 mg/dL (7-18); Calcium 8.4 mg/dL (8.5-10.1); Carbon Dioxide 17 mmol/L (21-32); Chloride 114 mmol/L (98-107); Glucose 80 mg/dL (74-106); Sodium 144 mmol/L (136-145)
[2022-02-27 07:52] LABS: GFR African American 916 mL/min; GFR Non-African American 757 mL/min
[2022-02-27 07:53] LABS: Potassium 2.8 mmol/L (3.5-5.1)
[2022-02-27] MEDS ORDERED: ASPirin-EC 81 mg tab PO SCH (10:00)
[2022-02-27] MEDS: FERROUS SULFATE DRIED 65 MG PO SCH (10:00)
[2022-02-27] MEDS: PANTOPRAZOLE 40 MG/10 ML VIAL INJ IV SCH (10:29)
[2022-02-27] MEDS: FUROSEMIDE 20 MG TAB PO SCH (10:30)
[2022-02-27] MEDS: MAGNESIUM SULFATE 1GM/100ML 100 ML IV SCH ×2 (10:30→12:00)
[2022-02-27] MEDS: ASPirin 81 mg TAB PO SCH (11:00)
[2022-02-27] MEDS: ENOXAPARIN SOD 40 MG/0.4 ML SYRINGE SC SCH (11:01)
[2022-02-27] MEDS: POTASSIUM CHL 20MEQ/100ML 100 ML IV SCH ×3 (13:18→18:03)
[2022-02-27] MEDS ORDERED: TPN PER PHARMACY 0 ML IV SCH (17:00)
[2022-02-27] MEDS: IPRATROPIUM BROM 0.5 MG/2.5ML INH SOL NEB PRN (18:02)
[2022-02-27 18:08] LABS: Magnesium 2.7 mg/dL (1.6-2.6); Phosphorus 2.6 mg/dL (2.5-4.90)
[2022-02-27] MEDS ORDERED: POTASSIUM PHOSPHATE 44 MEQ in D5W 5% 250 ML IV ONE (18:30)
[2022-02-27] MEDS ORDERED: AMINO ACID INFUSION IN D10W 1,000 ML IV NR (20:00)
[2022-02-27] MEDS: ALPRAZolam 0.5 MG TAB GT PRN (23:32)
[2022-02-27] MEDS: InsuLIN REG 1unit/0.01ml Soln (100units/ml) SC SCH (23:45)
[2022-02-27] MEDS: ACCU-CHEK COMFORT CURVE STRIP VI SCH (23:46)
[2022-02-28] VITALS (12 sets, daily range): BP systolic 96–130; BP diastolic 50–74
[2022-02-28] MEDS ORDERED: DEXTROSE (50%) 50ML SYRG IV SCH
[2022-02-28] MEDS: HYDROmorphone HCL 2 MG/ML VL/or syr IV PRN ×6 (00:35→22:52)
[2022-02-28] MEDS: CEFEPIME 2 GM in SODIUM CHL 0.9% 50 ML IV SCH ×2 (01:56→10:18)
[2022-02-28] MEDS: ACETYLCYSTEINE 10 %(100MG/ML) SOL 4ML NEB SCH ×6 (02:31→22:00)
[2022-02-28] MEDS: ALBUTEROL SULF 2.5 MG/0.5ML(0.5%) NEB SOLN NEB PRN ×5 (02:31→18:24)
[2022-02-28 05:15] LABS: Basophils # (auto) 0 10 ^3/uL (0-0.2); Basophils % (auto) 0.3 % (0.0-2.0); Eosinophils # (auto) 0 10 ^3/uL (0-0.8); Lymphocytes # (auto) 0.3 10 ^3/uL (0.4-5.4); Monocytes # (auto) 0.6 10 ^3/uL (0-1.3); Neutrophils # (auto) 1.9 10 ^3/uL (1.6-8.6)
[2022-02-28 05:17] LABS: Eosinophils % (auto) 1.4 % (0.0-7.0); Hematocrit 22.6 % (41.0-53.0); Mean Corpuscular Hgb Conc. 29.1 g/dL (32.0-36.0); Mean Corpuscular Volume 65.5 fL (80.0-100.0); Neutrophils % (auto) 65.5 % (37.0-80.0); Nucleated Red Blood Cells % 0.3 %; Red Blood Cells 3.46 10^6/uL (4.5-5.90); White Blood Cell 2.8 10^3/uL (4.4-10.8)
[2022-02-28 05:26] LABS: Monocytes % (auto) 20.8 % (0.0-12.0); Red Cell Distribution Width 20.1 % (11.8-14.3)
[2022-02-28 05:27] LABS: Hemoglobin 6.6 g/dL (13.5-17.5)
[2022-02-28 05:33] LABS: Chloride 117 mmol/L (98-107); Potassium 4.7 mmol/L (3.5-5.1); Sodium 144 mmol/L (136-145)
[2022-02-28 05:38] LABS: Albumin 2.5 g/dL (3.4-5.0); Anion Gap 8 (5-15); Blood Urea Nitrogen 17 mg/dL (7-18); Carbon Dioxide 19 mmol/L (21-32); Glucose 95 mg/dL (74-106); Magnesium 2.5 mg/dL (1.6-2.6)
[2022-02-28 05:40] LABS: Triglycerides 105 mg/dL (< 150)
[2022-02-28 05:42] LABS: Alanine Aminotransferase 71 U/L (16-61); Alkaline Phosphatase 227 U/L (45-117); Aspartate Aminotransferase 48 U/L (15-37); Bilirubin, Total 1.2 mg/dL (0.2-1.0); Phosphorus 3.7 mg/dL (2.5-4.90); Total Protein 6.9 g/dL (6.4-8.2)
[2022-02-28 05:44] LABS: BUN/Creatinine Ratio 113.3; GFR African American 916 mL/min; GFR Non-African American 757 mL/min
[2022-02-28] MEDS: InsuLIN REG 1unit/0.01ml Soln (100units/ml) SC SCH ×3 (06:00→17:36)
[2022-02-28] MEDS: SODIUM CHLOR 0.9% PF (SALINE LOCK) 10ML VIAL/SYR IV SCH ×3 (06:17→22:30)
[2022-02-28] MEDS: VANCOMYCIN 1GM/250ML 250 ML IV SCH (06:17)
[2022-02-28] MEDS: IPRATROPIUM BROM 0.5 MG/2.5ML INH SOL NEB PRN ×2 (06:21→18:24)
[2022-02-28] MEDS: ACCU-CHEK COMFORT CURVE STRIP VI SCH ×3 (06:45→17:36)
[2022-02-28] MEDS: ENOXAPARIN SOD 40 MG/0.4 ML SYRINGE SC SCH (10:18)
[2022-02-28] MEDS: PANTOPRAZOLE 40 MG/10 ML VIAL INJ IV SCH (10:18)
[2022-02-28] MEDS: FUROSEMIDE 20 MG TAB PO SCH (10:30)
[2022-02-28] MEDS: CEFEPIME 2 GM in D5W 5% 50 ML IV SCH (18:02)
[2022-02-28] MEDS ORDERED: TPN PER PHARMACY IV NR ×8 (20:00)
[2022-03-01] MEDS ORDERED: VANCOMYCIN 1GM/250ML 250 ML IV SCH
[2022-03-01] MEDS: ACCU-CHEK COMFORT CURVE STRIP VI SCH ×5 (00:09→23:32)
[2022-03-01] MEDS: ALPRAZolam 0.5 MG TAB GT PRN ×2 (01:24→22:27)
[2022-03-01] MEDS: CEFEPIME 2 GM in D5W 5% 50 ML IV SCH ×2 (01:25→08:34)
[2022-03-01] MEDS: ACETYLCYSTEINE 10 %(100MG/ML) SOL 4ML NEB SCH (02:00)
[2022-03-01] MEDS: HYDROmorphone HCL 2 MG/ML VL/or syr IV PRN ×5 (02:53→20:18)
[2022-03-01 05:00] VITALS: BP 101/57
[2022-03-01] MEDS: SODIUM CHLOR 0.9% PF (SALINE LOCK) 10ML VIAL/SYR IV SCH ×3 (05:27→22:02)
[2022-03-01] MEDS: InsuLIN REG 1unit/0.01ml Soln (100units/ml) SC SCH ×5 (05:28→23:32)
[2022-03-01] MEDS: IPRATROPIUM BROM 0.5 MG/2.5ML INH SOL NEB PRN ×4 (06:22→18:47)
[2022-03-01] MEDS: ALBUTEROL SULF 2.5 MG/0.5ML(0.5%) NEB SOLN NEB PRN ×4 (06:22→18:47)
[2022-03-01 06:57] LABS: Basophils # (auto) 0 10 ^3/uL (0-0.2); Eosinophils # (auto) 0.1 10 ^3/uL (0-0.8); Lymphocytes # (auto) 0.6 10 ^3/uL (0.4-5.4); Lymphocytes % (auto) 16.4 % (10.0-50.0); Monocytes # (auto) 0.5 10 ^3/uL (0-1.3); Neutrophils # (auto) 2.2 10 ^3/uL (1.6-8.6)
[2022-03-01 06:59] LABS: Basophils % (auto) 0.6 % (0.0-2.0); Eosinophils % (auto) 3.4 % (0.0-7.0); Hematocrit 30.6 % (41.0-53.0); Hemoglobin 9.5 g/dL (13.5-17.5); Mean Corpuscular Hemoglobin 22.5 pg (28.0-32.0); Mean Corpuscular Hgb Conc. 31.2 g/dL (32.0-36.0); Mean Corpuscular Volume 72.3 fL (80.0-100.0); Monocytes % (auto) 13.8 % (0.0-12.0); Neutrophils % (auto) 65.8 % (37.0-80.0); Nucleated Red Blood Cells % 0.3 %; Red Blood Cells 4.23 10^6/uL (4.5-5.90); White Blood Cell 3.3 10^3/uL (4.4-10.8)
[2022-03-01 07:02] LABS: Chloride 114 mmol/L (98-107); Potassium 3.4 mmol/L (3.5-5.1); Sodium 142 mmol/L (136-145)
[2022-03-01 07:06] LABS: Anion Gap 8 (5-15); Blood Urea Nitrogen 17 mg/dL (7-18); Calcium 7.7 mg/dL (8.5-10.1); Carbon Dioxide 20 mmol/L (21-32); Glucose 101 mg/dL (74-106); Magnesium 2.3 mg/dL (1.6-2.6); Red Cell Distribution Width 24.5 % (11.8-14.3)
[2022-03-01 07:17] LABS: Alanine Aminotransferase 91 U/L (16-61); Albumin 2.4 g/dL (3.4-5.0); Alkaline Phosphatase 227 U/L (45-117); Aspartate Aminotransferase 70 U/L (15-37); Bilirubin, Total 1.6 mg/dL (0.2-1.0); Phosphorus 1.6 mg/dL (2.5-4.90); Total Protein 6.4 g/dL (6.4-8.2)
[2022-03-01 07:29] LABS: BUN/Creatinine Ratio 113.3; GFR African American 916 mL/min; GFR Non-African American 757 mL/min
[2022-03-01 08:20] VITALS: BP 134/62
[2022-03-01] MEDS: ASPirin 81 mg TAB PO SCH (08:34)
[2022-03-01] MEDS: PANTOPRAZOLE 40 MG/10 ML VIAL INJ IV SCH (08:34)
[2022-03-01] MEDS: ENOXAPARIN SOD 40 MG/0.4 ML SYRINGE SC SCH (08:36)
[2022-03-01] MEDS: FUROSEMIDE 20 MG TAB PO SCH (08:36)
[2022-03-01] MEDS: FERROUS SULFATE DRIED 65 MG PO SCH (08:36)
[2022-03-01] MEDS ORDERED: POTASSIUM PHOSPHATE 44 MEQ in D5W 5% 250 ML IV ONE (09:30)
[2022-03-01] MEDS ORDERED: ASPirin 81 mg TAB PO SCH (10:00)
[2022-03-01] MEDS ORDERED: CALCIUM GLUC 1,000mg/50ml-NS 50 ML IV ONE (10:00)
[2022-03-01 12:08] VITALS: BP 120/68
[2022-03-01] MEDS ORDERED: levoFLOXacin 750MG 150 ML IV ONE (15:15)
[2022-03-01 16:10] VITALS: BP 128/80
[2022-03-01] MEDS: ONDANSETRON HCL 4 MG/2 ML VIAL IV PRN (16:16)
[2022-03-01] MEDS: CeftoloZANE-TAZOB 3 GM in D5W 5% 100 ML IV SCH (17:45)
[2022-03-01] MEDS ORDERED: CEFTAZIDIME IV ONE (18:00)
[2022-03-01] MEDS ORDERED: SODIUM CHL 0.9% IV ONE (18:00)
[2022-03-01] MEDS ORDERED: TPN PER PHARMACY IV NR ×6 (20:00)
[2022-03-01] MEDS: SODIUM CHL 0.9% IV SCH (20:25)
[2022-03-01] MEDS: CEFTAZIDIME IV SCH (20:25)
[2022-03-01 22:00] VITALS: BP 137/84
[2022-03-02] VITALS (7 sets, daily range): BP systolic 134–162; BP diastolic 69–91
[2022-03-02] MEDS: ALBUTEROL SULF 2.5 MG/0.5ML(0.5%) NEB SOLN NEB PRN ×3 (00:05→22:03)
[2022-03-02] MEDS: IPRATROPIUM BROM 0.5 MG/2.5ML INH SOL NEB PRN ×3 (00:05→22:03)
[2022-03-02] MEDS: ONDANSETRON HCL 4 MG/2 ML VIAL IV PRN ×5 (00:25→21:22)
[2022-03-02] MEDS: HYDROmorphone HCL 2 MG/ML VL/or syr IV PRN ×6 (00:26→21:22)
[2022-03-02] MEDS: CeftoloZANE-TAZOB 3 GM in D5W 5% 100 ML IV SCH (01:18)
[2022-03-02] MEDS: CEFTAZIDIME IV SCH (04:25)
[2022-03-02] MEDS: SODIUM CHL 0.9% IV SCH (04:25)
[2022-03-02] MEDS: SODIUM CHLOR 0.9% PF (SALINE LOCK) 10ML VIAL/SYR IV SCH ×3 (05:14→21:23)
[2022-03-02] MEDS: InsuLIN REG 1unit/0.01ml Soln (100units/ml) SC SCH ×4 (05:14→23:36)
[2022-03-02] MEDS: ACCU-CHEK COMFORT CURVE STRIP VI SCH ×4 (05:14→23:36)
[2022-03-02] MEDS: HYDROcodone-ACET 5/325MG TAB GT PRN ×4 (06:36→19:13)
[2022-03-02 06:37] LABS: Basophils # (auto) 0 10 ^3/uL (0-0.2); Basophils % (auto) 0.4 % (0.0-2.0); Eosinophils # (auto) 0.2 10 ^3/uL (0-0.8); Eosinophils % (auto) 4.3 % (0.0-7.0); Hematocrit 33.4 % (41.0-53.0); Hemoglobin 10.2 g/dL (13.5-17.5); Lymphocytes # (auto) 0.6 10 ^3/uL (0.4-5.4); Mean Corpuscular Hemoglobin 21.9 pg (28.0-32.0); Mean Corpuscular Hgb Conc. 30.6 g/dL (32.0-36.0); Mean Corpuscular Volume 71.4 fL (80.0-100.0); Monocytes # (auto) 0.4 10 ^3/uL (0-1.3); Monocytes % (auto) 10.8 % (0.0-12.0); Neutrophils # (auto) 2.5 10 ^3/uL (1.6-8.6); Neutrophils % (auto) 67.5 % (37.0-80.0); Nucleated Red Blood Cells % 0.3 %; Red Blood Cells 4.67 10^6/uL (4.5-5.90); White Blood Cell 3.7 10^3/uL (4.4-10.8)
[2022-03-02 06:39] LABS: Red Cell Distribution Width 24.9 % (11.8-14.3)
[2022-03-02 06:41] LABS: Albumin 2.4 g/dL (3.4-5.0); Anion Gap 8 (5-15); Blood Urea Nitrogen 15 mg/dL (7-18); Calcium 7.9 mg/dL (8.5-10.1); Carbon Dioxide 20 mmol/L (21-32); Chloride 110 mmol/L (98-107); Glucose 116 mg/dL (74-106); Potassium 3.9 mmol/L (3.5-5.1); Sodium 138 mmol/L (136-145)
[2022-03-02 06:45] LABS: Alanine Aminotransferase 103 U/L (16-61); Alkaline Phosphatase 236 U/L (45-117); Aspartate Aminotransferase 59 U/L (15-37); Bilirubin, Total 1.2 mg/dL (0.2-1.0); Phosphorus 2.6 mg/dL (2.5-4.90); Total Protein 6.6 g/dL (6.4-8.2)
[2022-03-02 06:47] LABS: GFR African American 916 mL/min; GFR Non-African American 757 mL/min
[2022-03-02] MEDS: FUROSEMIDE 20 MG TAB PO SCH (09:08)
[2022-03-02] MEDS: PANTOPRAZOLE 40 MG/10 ML VIAL INJ IV SCH (09:08)
[2022-03-02] MEDS: ENOXAPARIN SOD 40 MG/0.4 ML SYRINGE SC SCH (09:12)
[2022-03-02] MEDS ORDERED: levoFLOXacin 750MG 150 ML IV SCH (10:00)
[2022-03-02] MEDS: CEFTAZIDIME-AVIBACTAM 2.5gm in D5W 100 ML IV SCH ×2 (12:53→19:29)
[2022-03-02] MEDS ORDERED: TPN PER PHARMACY IV NR ×8 (20:00)
[2022-03-02] MEDS: ALPRAZolam 0.5 MG TAB GT PRN (22:58)
[2022-03-03] VITALS (7 sets, daily range): BP systolic 103–139; BP diastolic 65–80
[2022-03-03] MEDS: ONDANSETRON HCL 4 MG/2 ML VIAL IV PRN ×5 (01:28→17:55)
[2022-03-03] MEDS: HYDROmorphone HCL 2 MG/ML VL/or syr IV PRN ×6 (01:28→21:40)
[2022-03-03] MEDS: ALBUTEROL SULF 2.5 MG/0.5ML(0.5%) NEB SOLN NEB PRN ×3 (02:21→21:52)
[2022-03-03] MEDS: IPRATROPIUM BROM 0.5 MG/2.5ML INH SOL NEB PRN ×3 (02:21→21:52)
[2022-03-03] MEDS: HYDROcodone-ACET 5/325MG TAB GT PRN ×5 (02:38→23:09)
[2022-03-03] MEDS: CEFTAZIDIME-AVIBACTAM 2.5gm in D5W 100 ML IV SCH ×3 (04:04→21:04)
[2022-03-03] MEDS: ACCU-CHEK COMFORT CURVE STRIP VI SCH ×3 (05:22→17:55)
[2022-03-03] MEDS: SODIUM CHLOR 0.9% PF (SALINE LOCK) 10ML VIAL/SYR IV SCH ×3 (05:22→21:04)
[2022-03-03] MEDS: InsuLIN REG 1unit/0.01ml Soln (100units/ml) SC SCH ×3 (05:23→18:00)
[2022-03-03 07:15] LABS: Albumin 2.4 g/dL (3.4-5.0); Anion Gap 8 (5-15); Blood Urea Nitrogen 16 mg/dL (7-18); Calcium 7.9 mg/dL (8.5-10.1); Carbon Dioxide 21 mmol/L (21-32); Chloride 108 mmol/L (98-107); Glucose 110 mg/dL (74-106); Magnesium 2.1 mg/dL (1.6-2.6); Potassium 3.8 mmol/L (3.5-5.1); Sodium 137 mmol/L (136-145)
[2022-03-03 07:22] LABS: Alanine Aminotransferase 97 U/L (16-61); Alkaline Phosphatase 221 U/L (45-117); Aspartate Aminotransferase 49 U/L (15-37); Phosphorus 2.5 mg/dL (2.5-4.90); Total Protein 6.5 g/dL (6.4-8.2)
[2022-03-03 07:23] LABS: BUN/Creatinine Ratio 106.7; GFR African American 916 mL/min; GFR Non-African American 757 mL/min
[2022-03-03] MEDS ORDERED: SODIUM PHOSP 40 MEQ in D5W 5% 250 ML IV ONE (08:45)
[2022-03-03] MEDS: FERROUS SULFATE DRIED 65 MG PO SCH ×2 (09:37→10:00)
[2022-03-03] MEDS: FUROSEMIDE 20 MG TAB PO SCH (09:37)
[2022-03-03] MEDS: ENOXAPARIN SOD 40 MG/0.4 ML SYRINGE SC SCH (09:37)
[2022-03-03] MEDS: PANTOPRAZOLE 40 MG/10 ML VIAL INJ IV SCH (09:37)
[2022-03-03] MEDS: ASPirin 81 mg TAB PO SCH (09:37)
[2022-03-03] MEDS: ALPRAZolam 0.5 MG TAB GT PRN (11:30)
[2022-03-03] MEDS ORDERED: TPN PER PHARMACY IV NR ×9 (20:00)
[2022-03-04] MEDS: InsuLIN REG 1unit/0.01ml Soln (100units/ml) SC SCH ×3 (01:15→12:00)
[2022-03-04] MEDS: ACCU-CHEK COMFORT CURVE STRIP VI SCH ×3 (01:15→12:14)
[2022-03-04] MEDS: IPRATROPIUM BROM 0.5 MG/2.5ML INH SOL NEB PRN (02:07)
[2022-03-04] MEDS: ALBUTEROL SULF 2.5 MG/0.5ML(0.5%) NEB SOLN NEB PRN (02:07)
[2022-03-04] MEDS: HYDROmorphone HCL 2 MG/ML VL/or syr IV PRN ×4 (02:10→15:01)
[2022-03-04] MEDS: CEFTAZIDIME-AVIBACTAM 2.5gm in D5W 100 ML IV SCH ×2 (04:48→12:22)
[2022-03-04] MEDS: HYDROcodone-ACET 5/325MG TAB GT PRN ×3 (04:50→13:08)
[2022-03-04 05:00] VITALS: BP 149/75
[2022-03-04] MEDS: SODIUM CHLOR 0.9% PF (SALINE LOCK) 10ML VIAL/SYR IV SCH ×2 (06:14→14:00)
[2022-03-04] MEDS: ALPRAZolam 0.5 MG TAB GT PRN (07:21)
[2022-03-04 08:30] LABS: Albumin 2.4 g/dL (3.4-5.0); Chloride 108 mmol/L (98-107); Potassium 4.2 mmol/L (3.5-5.1); Sodium 135 mmol/L (136-145)
[2022-03-04 08:34] VITALS: BP 108/66
[2022-03-04 08:38] LABS: Alanine Aminotransferase 83 U/L (16-61); Alkaline Phosphatase 198 U/L (45-117); Anion Gap 9 (5-15); Aspartate Aminotransferase 69 U/L (15-37); BUN/Creatinine Ratio 113.3; Bilirubin, Total 0.8 mg/dL (0.2-1.0); Blood Urea Nitrogen 17 mg/dL (7-18); Carbon Dioxide 18 mmol/L (21-32); GFR African American 916 mL/min; GFR Non-African American 757 mL/min; Glucose 113 mg/dL (74-106); Magnesium 2.6 mg/dL (1.6-2.6); Phosphorus 3.9 mg/dL (2.5-4.90); Total Protein 6.9 g/dL (6.4-8.2)
[2022-03-04] MEDS: PANTOPRAZOLE 40 MG/10 ML VIAL INJ IV SCH (08:59)
[2022-03-04] MEDS: FUROSEMIDE 20 MG TAB PO SCH (08:59)
[2022-03-04] MEDS: ENOXAPARIN SOD 40 MG/0.4 ML SYRINGE SC SCH (08:59)
[2022-03-04] MEDS: ONDANSETRON HCL 4 MG/2 ML VIAL IV PRN ×2 (10:42→15:02)
[2022-03-04 12:39] VITALS: BP 119/65
[2022-03-04 14:47] VITALS: BP 120/66
[2022-03-04 16:52] VITALS: BP 128/70
[2022-03-04] MEDS ORDERED: TPN PER PHARMACY IV NR ×9 (20:00)
== END 2022-03-04 17:00 | disposition home or self-care (01) | DRG 870 ==
LOC: EDBD 05:08 → ER 05:08 → OVERFLOW 10:28 → CENTRAL 17:39 → TELE-CENTR 02-27 09:13
PROVIDERS: ADMIT Internal Medicine; ATTEND Internal Medicine Pulmonary Disease
PROC: 5A1955Z Respiratory Ventilation, Greater than 96 Consecutive Hours (ICD-10-PCS; principal; 2022-02-25)
PROC: 0BH17EZ Insertion of Endotracheal Airway into Trachea, Via Natural or Artificial Opening (ICD-10-PCS; 2022-02-25)
PROC: 30233N1 Transfusion of Nonautologous Red Blood Cells into Peripheral Vein, Percutaneous Approach (ICD-10-PCS; 2022-02-28)
DX: A41.9 Sepsis, unspecified organism (principal); G82.50 Quadriplegia, unspecified; J18.9 Pneumonia, unspecified organism; J44.0 Chronic obstructive pulmonary disease with (acute) lower respiratory infection; J98.11 Atelectasis; J96.10 Chronic respiratory failure, unspecified whether with hypoxia or hypercapnia; D62 Acute posthemorrhagic anemia; Z99.11 Dependence on respirator [ventilator] status; K80.20 Calculus of gallbladder without cholecystitis without obstruction; E87.6 Hypokalemia; D50.9 Iron deficiency anemia, unspecified; Z88.8 Allergy status to other drugs, medicaments and biological substances; Z93.0 Tracheostomy status; Z88.2 Allergy status to sulfonamides
CPT/HCPCS: 36415; 36600; 71045; 71275; 80048; 80053; 80202; 82565; 82728; 82805; 82962; 83540; 83550; 83605; 83735; 84100; 84478; 84484; 85025; 86850; 86900; 86901; 86920; 87040; 87070; 87077; 87186; 87205; 93005; 94002; 94003; 94640; 96365; 96372; 96375; 99291; C9113; G0378; J0713; J0714; J1815; J2405; J2543; J3480; J3490; J7060

== ENCOUNTER 2022-03-15 01:56 | Inpatient (IN) | payer MEDICARE, MEDICAID ==
[~2022-03-15] VITALS: Ht 165.1 cm; Wt 83.1 kg
[2022-03-15] VITALS (13 sets, daily range): BP systolic 123–192; BP diastolic 51–153
[~2022-03-15 01:56] MED LIST changes: -POM; -[UNRECOGNIZED DRUG - CODE] IV
[2022-03-15 04:07] LABS: Basophils # (auto) 0 10 ^3/uL (0-0.2); Basophils % (auto) 0.3 % (0.0-2.0); Eosinophils # (auto) 0 10 ^3/uL (0-0.8); Hemoglobin 10.2 g/dL (13.5-17.5); Lymphocytes # (auto) 0.5 10 ^3/uL (0.4-5.4); Mean Corpuscular Hgb Conc. 31.6 g/dL (32.0-36.0); Monocytes # (auto) 0.5 10 ^3/uL (0-1.3); Monocytes % (auto) 5.7 % (0.0-12.0); Red Blood Cells 4.62 10^6/uL (4.5-5.90)
[2022-03-15 04:09] LABS: Hematocrit 32.4 % (41.0-53.0); Lymphocytes % (auto) 5.3 % (10.0-50.0); Mean Corpuscular Hemoglobin 22.1 pg (28.0-32.0); Mean Corpuscular Volume 70.1 fL (80.0-100.0); Neutrophils # (auto) 7.8 10 ^3/uL (1.6-8.6); Neutrophils % (auto) 88.7 % (37.0-80.0); White Blood Cell 8.8 10^3/uL (4.4-10.8)
[2022-03-15 04:26] LABS: Albumin 2.9 g/dL (3.4-5.0)
[2022-03-15 04:29] LABS: Bilirubin, Total 1.1 mg/dL (0.2-1.0); Total Protein 8.2 g/dL (6.4-8.2)
[2022-03-15 04:50] LABS: Red Cell Distribution Width 25.4 % (11.8-14.3)
[2022-03-15 05:03] LABS: Potassium 2.5 mmol/L (3.5-5.1)
[2022-03-15] MEDS ORDERED: POTASSIUM CHL 20MEQ/100ML 100 ML IV ONE (05:15)
[2022-03-15] MEDS ORDERED: LACTATED RINGER'S 1,000 ML IV ONE (08:30)
[2022-03-15 08:41] LABS: Urine Bacteria FEW /hpf (None Seen); Urine Blood Negative /uL (Negative); Urine Budding Yeast MANY /hpf (None Seen); Urine Specific Gravity 1.018 (1.001-1.035); Urine WBC 15 /hpf (0 - 3)
[2022-03-15] MEDS: MORPHINE SULFATE 4 MG/ML SYR/VIAL IV SCH ×2 (08:50→12:15)
[2022-03-15] MEDS ORDERED: ONDANSETRON HCL 4 MG/2 ML VIAL IV SCH (10:00)
[2022-03-15] MEDS ORDERED: CEFTAZIDIME-AVIBACTAM 2.5gm in D5W 100 ML IV SCH (14:00)
[2022-03-15] MEDS ORDERED: cefTRIAXone 1GM/50ML D5W 50 ML IV ONE (14:15)
[2022-03-15] MEDS ORDERED: VANCOMYCIN PER PHARMACY 0 MG IV SCH (14:30)
[2022-03-15] MEDS ORDERED: PANTOPRAZOLE 40 MG/10 ML VIAL INJ IV ONE (14:30)
[2022-03-15] MEDS ORDERED: FLEET ENEMA(ADULT) 135 ML PR ONE (14:30)
[2022-03-15] MEDS ORDERED: PIPERACILLIN-TAZO 4.5GM 100 ML IV SCH ×2 (14:45→22:00)
[2022-03-15] MEDS ORDERED: VANCOMYCIN 1GM/250ML 250 ML IV ONE (15:00)
[2022-03-15] MEDS ORDERED: diphenhdrAMINE HCL 50 MG/1 ML VL IV ONE (15:30)
[2022-03-15] MEDS ORDERED: ONDANSETRON HCL 4 MG/2 ML VIAL IV PRN ×2 (15:45→16:30)
[2022-03-15] MEDS: CEFTAZIDIME-AVIBACTAM 2.5gm in D5W 100 ML IV SCH (15:54)
[2022-03-15] MEDS ORDERED: MORPHINE SULFATE 4 MG/ML SYR/VIAL IV PRN (16:00)
[2022-03-15] MEDS ORDERED: MORPHINE SULFATE INJ 2 MG/ml SYRG IV PRN (16:30)
[2022-03-15] MEDS ORDERED: SODIUM CHLORIDE 0.9% 1,000 ML IV ONE (16:30)
[2022-03-15] MEDS ORDERED: ALBUTEROL SULF 2.5 MG/0.5ML(0.5%) NEB SOLN NEB PRN (17:00)
[2022-03-15 17:29] LABS: BUN/Creatinine Ratio 57.1; Calcium 7.6 mg/dL (8.5-10.1)
[2022-03-15 17:40] LABS: Potassium 2.2 mmol/L (3.5-5.1)
[2022-03-15] MEDS: ALBUTEROL SULF 2.5 MG/0.5ML(0.5%) NEB SOLN NEB SCH (17:56)
[2022-03-15] MEDS ORDERED: SODIUM CHLORIDE 0.9% 500 ML IV ONE (18:00)
[2022-03-15] MEDS ORDERED: OXYCODONE W/ ACETAMINOPHEN 5/325MG TABLET PO SCH (18:00)
[2022-03-15] MEDS ORDERED: POTASSIUM EFFERVESENT TAB 25 MEQ GT ONE (18:00)
[2022-03-15] MEDS: LINEZOLID 600MG/300ML 300 ML IV SCH (18:15)
[2022-03-15] MEDS: POTASSIUM CHL 20MEQ/100ML 100 ML IV SCH ×2 (18:52→20:21)
[2022-03-15] MEDS: MORPHINE SULFATE INJ 2 MG/ml SYRG IV PRN (20:29)
[2022-03-15] MEDS ORDERED: traZODone HCL 50 MG TAB PO PRN (22:00)
[2022-03-15] MEDS: NYSTATIN TOPICAL POWDER 15GM TOP SCH (23:29)
[2022-03-15] MEDS: MORPHINE SULF 30 mg ER tab PO SCH (23:29)
[2022-03-16] MEDS: CEFTAZIDIME-AVIBACTAM 2.5gm in D5W 100 ML IV SCH ×2
[2022-03-16 01:11] LABS: Anion Gap 11 (5-15); Blood Urea Nitrogen 18 mg/dL (7-18); Calcium 8.1 mg/dL (8.5-10.1); Carbon Dioxide 22 mmol/L (21-32); Chloride 112 mmol/L (98-107); GFR African American 742 mL/min; GFR Non-African American 613 mL/min; Glucose 81 mg/dL (74-106); Sodium 145 mmol/L (136-145)
[2022-03-16] MEDS: MORPHINE SULFATE INJ 2 MG/ml SYRG IV PRN ×4 (02:10→17:49)
[2022-03-16] MEDS: ALPRAZolam 0.5 MG TAB PO PRN (04:17)
[2022-03-16 04:50] VITALS: BP 118/64
[2022-03-16] MEDS: LINEZOLID 600MG/300ML 300 ML IV SCH (05:11)
[2022-03-16] MEDS: ALBUTEROL SULF 2.5 MG/0.5ML(0.5%) NEB SOLN NEB SCH ×3 (06:23→19:04)
[2022-03-16 07:32] LABS: Alanine Aminotransferase 30 U/L (16-61); Albumin 2.6 g/dL (3.4-5.0); Anion Gap 6 (5-15); Aspartate Aminotransferase 33 U/L (15-37); Blood Urea Nitrogen 15 mg/dL (7-18); Calcium 8.4 mg/dL (8.5-10.1); Carbon Dioxide 25 mmol/L (21-32); Chloride 111 mmol/L (98-107); GFR African American 916 mL/min; GFR Non-African American 757 mL/min; Glucose 92 mg/dL (74-106); Sodium 142 mmol/L (136-145)
[2022-03-16 07:36] LABS: Alkaline Phosphatase 218 U/L (45-117); Bilirubin, Total 1.5 mg/dL (0.2-1.0); Total Protein 7.2 g/dL (6.4-8.2)
[2022-03-16 07:59] LABS: Basophils # (auto) 0 10 ^3/uL (0-0.2); Basophils % (auto) 0.6 % (0.0-2.0); Eosinophils # (auto) 0.1 10 ^3/uL (0-0.8); Eosinophils % (auto) 1.9 % (0.0-7.0); Hemoglobin 9.5 g/dL (13.5-17.5); Lymphocytes # (auto) 0.7 10 ^3/uL (0.4-5.4); Monocytes # (auto) 0.6 10 ^3/uL (0-1.3); White Blood Cell 4.7 10^3/uL (4.4-10.8)
[2022-03-16 08:02] LABS: Hematocrit 30.6 % (41.0-53.0); Lymphocytes % (auto) 14.5 % (10.0-50.0); Mean Corpuscular Hemoglobin 22.1 pg (28.0-32.0); Mean Corpuscular Hgb Conc. 30.9 g/dL (32.0-36.0); Mean Corpuscular Volume 71.5 fL (80.0-100.0); Monocytes % (auto) 11.8 % (0.0-12.0); Neutrophils # (auto) 3.4 10 ^3/uL (1.6-8.6); Neutrophils % (auto) 71.2 % (37.0-80.0); Nucleated Red Blood Cells % 0.1 %; Red Blood Cells 4.28 10^6/uL (4.5-5.90); Red Cell Distribution Width 25.6 % (11.8-14.3)
[2022-03-16 09:00] VITALS: BP 117/55
[2022-03-16] MEDS: MORPHINE SULF 30 mg ER tab PO SCH ×2 (10:02→22:26)
[2022-03-16] MEDS: ENOXAPARIN SOD 40 MG/0.4 ML SYRINGE SC SCH (10:02)
[2022-03-16] MEDS: NYSTATIN TOPICAL POWDER 15GM TOP SCH ×2 (10:02→22:00)
[2022-03-16] MEDS: FUROSEMIDE 20 MG TAB PO SCH (10:03)
[2022-03-16 13:00] VITALS: BP 132/68
[2022-03-16 13:39] LABS: Anion Gap 3 (5-15); Blood Urea Nitrogen 13 mg/dL (7-18); Calcium 8.1 mg/dL (8.5-10.1); Carbon Dioxide 27 mmol/L (21-32); Chloride 112 mmol/L (98-107); Glucose 76 mg/dL (74-106); Sodium 142 mmol/L (136-145)
[2022-03-16 13:51] LABS: BUN/Creatinine Ratio 86.7; GFR African American 916 mL/min; GFR Non-African American 757 mL/min
[2022-03-16 17:18] VITALS: BP 104/44
[2022-03-16 18:44] LABS: Anion Gap 11 (5-15); Blood Urea Nitrogen 12 mg/dL (7-18); Calcium 8.4 mg/dL (8.5-10.1); Carbon Dioxide 20 mmol/L (21-32); Chloride 111 mmol/L (98-107); Glucose 66 mg/dL (74-106); Sodium 142 mmol/L (136-145)
[2022-03-16 19:25] LABS: GFR African American 916 mL/min; GFR Non-African American 757 mL/min
[2022-03-16 22:00] VITALS: BP 112/53
[2022-03-17] MEDS: MORPHINE SULFATE INJ 2 MG/ml SYRG IV PRN ×5 (00:48→22:03)
[2022-03-17] MEDS ORDERED: DEXTROSE 50% SYRINGE 50 ML IV ONE (01:55)
[2022-03-17] MEDS ORDERED: DEXTROSE (50%) 50ML SYRG IV ONE (02:15)
[2022-03-17] MEDS: D5W/SOD CHL 0.45% 1,000 ML IV SCH ×2 (02:21→04:29)
[2022-03-17 05:00] VITALS: BP 99/52
[2022-03-17 05:54] LABS: Basophils # (auto) 0 10 ^3/uL (0-0.2); Basophils % (auto) 0.7 % (0.0-2.0); Eosinophils # (auto) 0.1 10 ^3/uL (0-0.8); Lymphocytes # (auto) 0.7 10 ^3/uL (0.4-5.4); Mean Corpuscular Volume 73.5 fL (80.0-100.0); Monocytes # (auto) 0.4 10 ^3/uL (0-1.3); Neutrophils # (auto) 2.7 10 ^3/uL (1.6-8.6)
[2022-03-17 05:57] LABS: Eosinophils % (auto) 2.4 % (0.0-7.0); Hematocrit 28.1 % (41.0-53.0); Hemoglobin 8.3 g/dL (13.5-17.5); Lymphocytes % (auto) 18.7 % (10.0-50.0); Mean Corpuscular Hemoglobin 21.9 pg (28.0-32.0); Mean Corpuscular Hgb Conc. 29.7 g/dL (32.0-36.0); Monocytes % (auto) 10.4 % (0.0-12.0); Neutrophils % (auto) 67.8 % (37.0-80.0); Nucleated Red Blood Cells % 0.2 %; Red Blood Cells 3.82 10^6/uL (4.5-5.90)
[2022-03-17 06:03] LABS: Red Cell Distribution Width 25.3 % (11.8-14.3)
[2022-03-17 06:16] LABS: Anion Gap 13 (5-15); Blood Urea Nitrogen 14 mg/dL (7-18); Calcium 8.3 mg/dL (8.5-10.1); Carbon Dioxide 16 mmol/L (21-32); Chloride 112 mmol/L (98-107); Potassium 3.7 mmol/L (3.5-5.1); Sodium 141 mmol/L (136-145)
[2022-03-17 06:22] LABS: BUN/Creatinine Ratio 93.3; GFR African American 916 mL/min; GFR Non-African American 757 mL/min
[2022-03-17 06:24] LABS: Glucose 48 mg/dL (74-106)
[2022-03-17] MEDS: IPRATROPIUM BROM 0.5 MG/2.5ML INH SOL NEB PRN ×3 (06:47→18:15)
[2022-03-17] MEDS: ALBUTEROL SULF 2.5 MG/0.5ML(0.5%) NEB SOLN NEB SCH ×3 (06:47→18:15)
[2022-03-17] MEDS ORDERED: DEXTROSE 10% 1,000 ML IV SCH (07:00)
[2022-03-17 09:00] VITALS: BP 137/62
[2022-03-17] MEDS ORDERED: TPN PER PHARMACY 0 ML IV SCH (09:45)
[2022-03-17 10:22] LABS: Albumin 2.3 g/dL (3.4-5.0); Bilirubin, Direct 0.3 mg/dL (0-0.2); Magnesium 2.3 mg/dL (1.6-2.6)
[2022-03-17] MEDS: ASPirin-EC 81 mg tab PO SCH (10:24)
[2022-03-17] MEDS: ENOXAPARIN SOD 40 MG/0.4 ML SYRINGE SC SCH (10:24)
[2022-03-17] MEDS: MORPHINE SULF 30 mg ER tab PO SCH ×3 (10:24→22:00)
[2022-03-17] MEDS: FUROSEMIDE 20 MG TAB PO SCH (10:24)
[2022-03-17 10:25] LABS: Bilirubin, Total 1.8 mg/dL (0.2-1.0); Phosphorus 2.8 mg/dL (2.5-4.90); Total Protein 6.6 g/dL (6.4-8.2)
[2022-03-17] MEDS: NYSTATIN TOPICAL POWDER 15GM TOP SCH ×2 (10:25→21:55)
[2022-03-17 13:00] VITALS: BP 147/83
[2022-03-17 17:00] VITALS: BP 117/54
[2022-03-17] MEDS ORDERED: AMINO ACID INFUSION IN D10W 1,000 ML IV NR (20:00)
[2022-03-17 22:00] VITALS: BP 151/72
[2022-03-18] MEDS ORDERED: DEXTROSE (50%) 50ML SYRG IV SCH ×2
[2022-03-18] MEDS ORDERED: ACCU-CHEK COMFORT CURVE STRIP VI SCH
[2022-03-18] MEDS ORDERED: InsuLIN REG 1unit/0.01ml Soln (100units/ml) SC SCH
[2022-03-18] MEDS: ALPRAZolam 0.5 MG TAB PO PRN (00:14)
[2022-03-18] MEDS: MORPHINE SULFATE INJ 2 MG/ml SYRG IV PRN ×5 (02:02→20:34)
[2022-03-18 05:00] VITALS: BP 146/75
[2022-03-18] MEDS: InsuLIN REG 1unit/0.01ml Soln (100units/ml) SC SCH ×4 (06:00→17:45)
[2022-03-18] MEDS: ACCU-CHEK COMFORT CURVE STRIP VI SCH ×4 (06:17→17:45)
[2022-03-18] MEDS: ALBUTEROL SULF 2.5 MG/0.5ML(0.5%) NEB SOLN NEB SCH ×3 (06:39→18:02)
[2022-03-18 09:00] VITALS: BP 158/81
[2022-03-18 09:09] LABS: Albumin 2.7 g/dL (3.4-5.0); Anion Gap 9 (5-15); Blood Urea Nitrogen 10 mg/dL (7-18); Calcium 8.6 mg/dL (8.5-10.1); Carbon Dioxide 19 mmol/L (21-32); Chloride 110 mmol/L (98-107); Glucose 101 mg/dL (74-106); Magnesium 1.9 mg/dL (1.6-2.6); Potassium 3.6 mmol/L (3.5-5.1); Sodium 138 mmol/L (136-145)
[2022-03-18 09:13] LABS: Alanine Aminotransferase 62 U/L (16-61); Alkaline Phosphatase 561 U/L (45-117); Aspartate Aminotransferase 65 U/L (15-37); BUN/Creatinine Ratio 66.7; Bilirubin, Total 1.3 mg/dL (0.2-1.0); GFR African American 916 mL/min; GFR Non-African American 757 mL/min; Phosphorus 2.5 mg/dL (2.5-4.90); Total Protein 7.7 g/dL (6.4-8.2); Triglycerides 82 mg/dL (< 150)
[2022-03-18] MEDS: ENOXAPARIN SOD 40 MG/0.4 ML SYRINGE SC SCH (10:23)
[2022-03-18] MEDS: MORPHINE SULF 30 mg ER tab PO SCH ×2 (10:23→21:50)
[2022-03-18] MEDS: NYSTATIN TOPICAL POWDER 15GM TOP SCH ×2 (10:24→21:50)
[2022-03-18] MEDS: FUROSEMIDE 20 MG TAB PO SCH (10:24)
[2022-03-18 13:00] VITALS: BP 148/77
[2022-03-18 16:24] VITALS: BP 128/73
[2022-03-18] MEDS: IPRATROPIUM BROM 0.5 MG/2.5ML INH SOL NEB PRN (18:02)
[2022-03-18] MEDS ORDERED: TPN PER PHARMACY IV NR ×9 (20:00)
[2022-03-18 21:45] VITALS: BP 159/79
[2022-03-18] MEDS: MUPIROCIN 2% OINT 15gm or 22gm FOR MRSA NARES EACHNOSTRI SCH (21:54)
[2022-03-18 22:00] VITALS: BP 159/79
[2022-03-19] MEDS: MORPHINE SULFATE INJ 2 MG/ml SYRG IV PRN ×4 (00:11→15:01)
[2022-03-19] MEDS: IPRATROPIUM BROM 0.5 MG/2.5ML INH SOL NEB PRN ×2 (00:38→18:08)
[2022-03-19] MEDS: ALBUTEROL SULF 2.5 MG/0.5ML(0.5%) NEB SOLN NEB SCH ×4 (00:39→18:09)
[2022-03-19] MEDS: ALPRAZolam 0.5 MG TAB PO PRN (02:41)
[2022-03-19 05:00] VITALS: BP 146/76
[2022-03-19] MEDS: InsuLIN REG 1unit/0.01ml Soln (100units/ml) SC SCH ×4 (05:59→18:00)
[2022-03-19] MEDS: ACCU-CHEK COMFORT CURVE STRIP VI SCH ×4 (05:59→18:00)
[2022-03-19 07:00] LABS: Albumin 2.5 g/dL (3.4-5.0); Blood Urea Nitrogen 12 mg/dL (7-18); Chloride 112 mmol/L (98-107); Sodium 140 mmol/L (136-145)
[2022-03-19 07:03] LABS: Alanine Aminotransferase 152 U/L (16-61); Anion Gap 8 (5-15); Aspartate Aminotransferase 188 U/L (15-37); Carbon Dioxide 20 mmol/L (21-32); GFR African American 916 mL/min; GFR Non-African American 757 mL/min; Glucose 120 mg/dL (74-106); Magnesium 1.8 mg/dL (1.6-2.6)
[2022-03-19 07:06] LABS: Alkaline Phosphatase 878 U/L (45-117); Phosphorus 2.6 mg/dL (2.5-4.90); Total Protein 6.6 g/dL (6.4-8.2)
[2022-03-19 09:00] VITALS: BP 135/70
[2022-03-19] MEDS ORDERED: POTASSIUM PHOSPHATE 44 MEQ in D5W 5% 250 ML IV ONE (09:15)
[2022-03-19] MEDS: MORPHINE SULF 30 mg ER tab PO SCH (10:00)
[2022-03-19] MEDS: ENOXAPARIN SOD 40 MG/0.4 ML SYRINGE SC SCH (10:00)
[2022-03-19] MEDS: ASPirin-EC 81 mg tab PO SCH (10:00)
[2022-03-19] MEDS: MUPIROCIN 2% OINT 15gm or 22gm FOR MRSA NARES EACHNOSTRI SCH (10:19)
[2022-03-19] MEDS: FUROSEMIDE 20 MG TAB PO SCH (10:19)
[2022-03-19] MEDS: NYSTATIN TOPICAL POWDER 15GM TOP SCH (10:20)
[2022-03-19] MEDS ORDERED: PANTOPRAZOLE 40 MG/10 ML VIAL INJ IV ONE (12:30)
[2022-03-19 13:00] VITALS: BP 155/74
[2022-03-19 17:00] VITALS: BP 168/86
[2022-03-19 17:59] VITALS: BP 155/74
[2022-03-19] MEDS ORDERED: TPN PER PHARMACY IV NR ×8 (20:00)
[2022-03-20] MEDS ORDERED: PANTOPRAZOLE 40 MG/10 ML VIAL INJ IV SCH (10:00)
== END 2022-03-19 19:17 | disposition home health service (06) | DRG 208 ==
LOC: ER 01:56 → EDBD 01:56 → TELE 16:33 → TELE-CENTR 22:28
PROVIDERS: ADMIT Registered Nurse; ATTEND Internal Medicine Pulmonary Disease
PROC: 5A1945Z Respiratory Ventilation, 24-96 Consecutive Hours (ICD-10-PCS; principal; 2022-03-15)
DX: J96.21 Acute and chronic respiratory failure with hypoxia (principal); G82.50 Quadriplegia, unspecified; N39.0 Urinary tract infection, site not specified; J94.2 Hemothorax; Z99.11 Dependence on respirator [ventilator] status; E88.09 Other disorders of plasma-protein metabolism, not elsewhere classified; E66.01 Morbid (severe) obesity due to excess calories; E87.6 Hypokalemia; D50.9 Iron deficiency anemia, unspecified; E16.2 Hypoglycemia, unspecified; Z93.0 Tracheostomy status; G71.00 Muscular dystrophy, unspecified; I10 Essential (primary) hypertension; F41.9 Anxiety disorder, unspecified; K21.9 Gastro-esophageal reflux disease without esophagitis; Z20.822 Contact with and (suspected) exposure to COVID-19; J44.9 Chronic obstructive pulmonary disease, unspecified; L30.4 Erythema intertrigo; M41.9 Scoliosis, unspecified; Z83.3 Family history of diabetes mellitus; Z87.01 Personal history of pneumonia (recurrent); Z98.1 Arthrodesis status; Z88.1 Allergy status to other antibiotic agents; Z88.2 Allergy status to sulfonamides; Z88.8 Allergy status to other drugs, medicaments and biological substances; Z68.30 Body mass index [BMI] 30.0-30.9, adult
CPT/HCPCS: 36415; 71045; 74177; 80048; 80053; 80076; 81001; 82962; 83690; 83735; 84100; 84478; 84484; 85025; 87040; 87070; 87077; 87081; 87086; 87088; 87186; 87205; 94002; 94003; 94640; 96361; 96374; A4605; C9113; G0378; J0696; J0714; J2405; J3480; J7060